=== PATIENT | female | born 1940 | race Caucasian/White ===

== ENCOUNTER 2018-06-07 02:48 | Inpatient (IN) ==
[2018-06-07 03:06] LABS: Baso # (Auto) 0.1 th/mm3 (0.0-0.2); Baso % (Auto) 0.8 % (0.0-2.0); Eos # (Auto) 0.1 th/mm3 (0.0-0.4); Eos % (Auto) 1.1 % (0.0-4.0); Hematocrit 35.9 % (35.0-46.0); Hemoglobin 11.9 gm/dL (11.6-15.3); Lymph # (Auto) 2.1 th/mm3 (1.0-4.8); Mean Corpuscular HGB Conc 33.2 % (32.0-36.0); Mean Corpuscular Hemoglobin 30.7 pg (27.0-34.0); Mean Corpuscular Volume 92.6 fL (80.0-100.0); Mean Platelet Volume 8.3 fL (7.0-11.0); Mono # (Auto) 0.5 th/mm3 (0.0-0.9); Mono % (Auto) 5.1 % (0.0-8.0); Neut # (Auto) 7.6 th/mm3 (1.8-7.7); Platelet Count 242 th/mm3 (150-450); Red Blood Count 3.87 mil/mm3 (4.00-5.30); Red Cell Distribution Width 13.3 % (11.6-17.2); White Blood Count 10.4 th/mm3 (4.0-11.0)
[2018-06-07] MEDS ORDERED: Azithromycin Inj 500 MG in Sodium Chlor 0.9% Inj 250 ML IV.SIG STA (03:07)
[2018-06-07] MEDS ORDERED: Piperacil/Tazo 4.5 GM Premix 4.5 GM/100 ML BAG IV.SIG STA (03:07)
--- NOTE | 2018-06-07 03:07 | ED ---
HPI General Chief Complaint: Shortness of Breath/Dyspnea Stated Complaint: sob Time Seen by Provider: 06/07/18 02:50 Source: patient, family and EMS Mode of arrival: EMS Limitations: no limitations History of Present Illness 77 F arrives by EMS 2/2 dyspnea. called 2/2 SOB at home at approx 230AM. O2 sats in the 70s on oxygen increased to 80s en route. Evidently patient took amoxicillin shortly before symptoms started. Amox was for recently dx'd URI. Pt non-verbal upon arrival limiting initial hx to that given by EMS. Pt is able to nod no to questions about chest pain,n/v, fever/chills, and abdominal pain. Pt nods "yes" that dyspnea is from chest not throat. Related Data Home Medications Medication Instructions Recorded Confirmed amoxicillin 875 mg PO BID 06/07/18 06/07/18 atorvastatin 20 mg PO DAILY 06/07/18 06/07/18 carvedilol 25 mg PO BID 06/07/18 06/07/18 hydrochlorothiazide 25 mg PO DAILY 06/07/18 06/07/18 losartan 100 mg PO DAILY 06/07/18 06/07/18 Allergies Allergy/AdvReac Type Severity Reaction Status Date / Time No Known Allergies Allergy Verified 06/07/18 02:50 Review of Systems ROS Unobtainable ROS Unobtainable: unobtainable due to mental condition and unobtainable due to mental status PMFSH Social History Social History Substance History: No History of Abuse Second Hand Smoke Exposure: No Smoking Status: Never smoker How Often Do You Have a Drink Containing Alcohol: Never Recent Travel in [facility] within the Last 8 Weeks: No Recent Out of Country Travel within the Last 8 Weeks: No Exam Narrative Exam Narrative: GENERAL: 77 yo F, WNWD, moderate distress SKIN: Warm. Minimal diaphoresis diffusely. HEAD: Atraumatic. Normocephalic. EYES: Pupils equal and round. No scleral icterus. No injection or drainage. ENT: No nasal bleeding or discharge. Mucous membranes pink and moist. NECK: Trachea midline. No JVD. CARDIOVASCULAR: Rate approx 90s. Sinus. RESPIRATORY: Respiratory rate approx 20 breaths per minute. Lung are slightly diminished bilaterally. GASTROINTESTINAL: Abdomen soft, non-tender, nondistended. Hepatic and splenic margins not palpable. MUSCULOSKELETAL: No obvious deformities. No clubbing. No cyanosis. No edema. NEUROLOGICAL: No facial asymmetry. Pt nods yes and no to some questions. Pt non- verbal. Pupils approx 2mm bilaterally. PSYCHIATRIC: Unable to assess Course Initial Documented Vital Signs Pulse Rate 93 H 06/07/18 02:55 Respiratory Rate 24 06/07/18 02:55 Blood Pressure 155/99 H 06/07/18 02:55 Pulse Oximetry 97 06/07/18 02:55 Last Documented Vital Signs Temperature 98.6 F 06/09/18 04:01 Pulse Rate 70 06/09/18 06:00 Respiratory Rate 15 06/09/18 04:01 Blood Pressure 125/64 06/09/18 04:01 Pulse Oximetry 91 L 06/09/18 04:01 Critical Care Time Critical Care Time: Yes Total Critical Care Time: 36 Attestation: Aggregate critical care time was 36 minutes. Time to perform other separately billable procedures was not included in the critical care time. My time did not include minutes spent treating any other patients simultaneously or on activities that did not directly contribute to the patient's treatment. The services I provided to this patient were to treat and/or prevent clinically significant deterioration that could result in: hypoxia, septic shock, anoxia I provided critical care services requiring my management, as noted below: Chart data review, documentation time, medication orders and management, vital sign assessments/reviewing monitor data, ordering and reviewing lab tests, ordering and interpreting/reviewing x-rays and diagnostic studies, care of the patient and discussion of the patient with the admitting physicians. Medical Decision Making MDM Narrative Medical decision making narrative: BIPAP started upon arrival O2 sats improved to high 90s on 70% FIO2 Initial AB.256/50/22 PO2 96.8 BE -4.4 CXR bilateral density concerning of PNA and/or flash pulmonary edema Marginal improvement with albuterol Blood cultures drawn, lactic drawn, zosyn/azithromycin started BNP 1678 Tn 1.07 EKG sinus, rate 92, TWI V2-V6, q waves II/III/aVF, concerning for ischemic disease, not STEMI pt confirms no chest pain upon reassessment at 350AM reportedly pt was unusually short of breath at a visit to [facility] a few days prior Lasix 40mg IV ordered at 330AM Heparin gtt ordered at 330AM Call to goldsmith apprentice service at 330AM Call to sales assistants and salespersons at 330AM Pt just started to follow w a sales assistants and salespersons in [place] for HTN, no hx CAD Hyperglycemia present, no hx DM Ongoing clinical improvement at 340AM d/w Dr Bangura of goldsmith apprentice service at 345AM; admission [place] [facility] [place] at 346AM pt will go to [facility] d/w Dr Buckley of cardiology at approx 400AM lactic acid 7, possible tourniquet time stat repeat lactic acid ordered pt notified of results and plan for transfer [place] [facility] [place] [facility] Medical Screen Exam Complete: Yes Emergency Medical Condition: Yes Differential Diagnosis Differential Diagnosis: pna, chf, pleural effusion, pe, pericardial effusion, anemia, renal failure, sepsis Lab Data Result diagrams: 06/09/18 03:50 06/09/18 03:50 Lab Results 06/07/18 06/07/18 06/07/18 Range/Units 02:50 02:50 02:50 CBC w Diff Auto diff final WBC 10.4 (4.0-11.0) th/mm3 RBC 3.87 L (4.00-5.30) mil/mm3 Hgb 11.9 (11.6-15.3) gm/dL Hct 35.9 (35.0-46.0) % MCV 92.6 (80.0-100.0) fL MCH 30.7 (27.0-34.0) pg MCHC 33.2 (32.0-36.0) % RDW 13.3 (11.6-17.2) % Plt Count 242 (150-450) th/mm3 MPV 8.3 (7.0-11.0) fL Prelim Diff (Auto) Neut % (Auto) 73.0 H (16.0-70.0) % Lymph % (Auto) 20.0 (9.0-44.0) % Summers % (Auto) 5.1 (0.0-8.0) % Eos % (Auto) 1.1 (0.0-4.0) % Baso % (Auto) 0.8 (0.0-2.0) % Neut # (Auto) 7.6 (1.8-7.7) th/mm3 Lymph # (Auto) 2.1 (1.0-4.8) th/mm3 Summers # (Auto) 0.5 (0.0-0.9) th/mm3 Eos # (Auto) 0.1 (0.0-0.4) th/mm3 Baso # (Auto) 0.1 (0.0-0.2) th/mm3 WBC Differential . Diff Scan Differential Comment . PT 10.6 (9.8-11.6) sec INR 1.0 Ratio APTT 25.4 (23.4-31.7) sec Puncture Site Patient Temperature O2 Saturation (90-100) % ABG pH (7.380-7.420) ABG pCO2 (38-42) mmHg ABG pO2 (61-120) mmHg ABG HCO3 (22-26) mmol/L ABG O2 Content (12.0-20.0) Vol % ABG Base Excess (-2-2) mmol/L ABG Methemoglobin (0-2) % Greg Test Hemoglobin (12.0-16.0) G/DL Carboxyhemoglobin (0-4) % O2 Delivery Device Vent Setting Inspired O2 % Critical Value Sodium 128 L (136-145) meq/L Potassium 4.3 (3.5-5.1) meq/L Chloride 92 L (98-107) meq/L Carbon Dioxide 22.7 (21.0-32.0) meq/L Anion Gap 13 (5-15) meq/L BUN 17 (7-18) mg/dL Creatinine 1.20 H (0.50-1.00) mg/dL Estimated GFR 44 L (>89) mL/min POC Glucose (68-110) mg/dl Random Glucose 281 H (74-106) mg/dL Hemoglobin A1c (4.3-6.0) % Lactic Acid (0.4-2.0) mmol/L Calcium 8.2 L (8.5-10.1) mg/dL Phosphorus (2.5-4.9) mg/dL Magnesium 2.4 (1.5-2.5) mg/dL Total Bilirubin 0.7 (0.2-1.0) mg/dL AST 29 (15-37) U/L ALT 41 (10-53) U/L Alkaline Phosphatase 49 (45-117) U/L Troponin I 1.08 H* (0.02-0.05) ng/mL B-Natriuretic Peptide (0-100) pg/mL Total Protein 7.3 (6.4-8.2) g/dL Albumin 3.5 (3.4-5.0) g/dL Triglycerides (42-150) mg/dL Cholesterol (120-200) mg/dL LDL Cholesterol, Calc (0-99) mg/dL HDL Cholesterol (40.0-60.0) mg/dL Cholesterol/HDL Ratio Ratio TSH 5.150 H (0.358-3.740) uIU/mL Free T4 (0.76-1.46) ng/dL Total T3 (60-181) ng/dL Urine Color (Yellw/Straw) Urine Clarity (Clear) Urine pH (5.0-8.5) Ur Specific Aladdin (1.002-1.035) Urine Protein (Neg-Trace) mg/dL Urine Glucose (UA) (Negative) mg/dL Urine Ketones (Negative) mg/dL Urine Occult Blood (Negative) Urine Nitrate (Negative) Urine Bilirubin (Negative) Urine Urobilinogen (Less than 2) mg/dL Ur Leukocyte Esterase (Negative) Urine RBC (0-3) /hpf Urine WBC (0-5) /hpf Ur Squamous Epith Cells (0-5) /hpf Ur Microscopic Review Nasal Screen MRSA (PCR) (Negative) Urine Opiates Screen (Neg) Ur Barbiturates Screen (Neg) Ur Amphetamines Screen (Neg) U Benzodiazepines Scrn (Neg) Urine Cocaine Screen (Neg) U Cannabinoids Screen (Neg) Serum Alcohol Less than 3 (0-5) mg/dL 06/07/18 06/07/18 06/07/18 Range/Units 02:50 03:05 03:05 CBC w Diff WBC (4.0-11.0) th/mm3 RBC (4.00-5.30) mil/mm3 Hgb (11.6-15.3) gm/dL Hct (35.0-46.0) % MCV (80.0-100.0) fL MCH (27.0-34.0) pg MCHC (32.0-36.0) % RDW (11.6-17.2) % Plt Count (150-450) th/mm3 MPV (7.0-11.0) fL Prelim Diff (Auto) Neut % (Auto) (16.0-70.0) % Lymph % (Auto) (9.0-44.0) % Summers % (Auto) (0.0-8.0) % Eos % (Auto) (0.0-4.0) % Baso % (Auto) (0.0-2.0) % Neut # (Auto) (1.8-7.7) th/mm3 Lymph # (Auto) (1.0-4.8) th/mm3 Summers # (Auto) (0.0-0.9) th/mm3 Eos # (Auto) (0.0-0.4) th/mm3 Baso # (Auto) (0.0-0.2) th/mm3 WBC Differential Diff Scan Differential Comment PT (9.8-11.6) sec INR Ratio APTT (23.4-31.7) sec Puncture Site Right radial Patient Temperature 98.6 O2 Saturation 95 (90-100) % ABG pH 7.26 L* (7.380-7.420) ABG pCO2 50 H (38-42) mmHg ABG pO2 97 (61-120) mmHg ABG HCO3 22 (22-26) mmol/L ABG O2 Content 15.7 (12.0-20.0) Vol % ABG Base Excess -4.4 L (-2-2) mmol/L ABG Methemoglobin 1.2 (0-2) % Greg Test Present Hemoglobin 11.7 L (12.0-16.0) G/DL Carboxyhemoglobin 0.9 (0-4) % O2 Delivery Device Bipap Vent Setting Ipap 15/ epap 5 Inspired O2 70 % Critical Value Yes Sodium (136-145) meq/L Potassium (3.5-5.1) meq/L Chloride (98-107) meq/L Carbon Dioxide (21.0-32.0) meq/L Anion Gap (5-15) meq/L BUN (7-18) mg/dL Creatinine (0.50-1.00) mg/dL Estimated GFR (>89) mL/min POC Glucose (68-110) mg/dl Random Glucose (74-106) mg/dL Hemoglobin A1c (4.3-6.0) % Lactic Acid 7.1 H* (0.4-2.0) mmol/L Calcium (8.5-10.1) mg/dL Phosphorus (2.5-4.9) mg/dL Magnesium (1.5-2.5) mg/dL Total Bilirubin (0.2-1.0) mg/dL AST (15-37) U/L ALT (10-53) U/L Alkaline Phosphatase (45-117) U/L Troponin I (0.02-0.05) ng/mL B-Natriuretic Peptide 1679 H (0-100) pg/mL Total Protein (6.4-8.2) g/dL Albumin (3.4-5.0) g/dL Triglycerides (42-150) mg/dL Cholesterol (120-200) mg/dL LDL Cholesterol, Calc (0-99) mg/dL HDL Cholesterol (40.0-60.0) mg/dL Cholesterol/HDL Ratio Ratio TSH (0.358-3.740) uIU/mL Free T4 (0.76-1.46) ng/dL Total T3 (60-181) ng/dL Urine Color (Yellw/Straw) Urine Clarity (Clear) Urine pH (5.0-8.5) Ur Specific Aladdin (1.002-1.035) Urine Protein (Neg-Trace) mg/dL Urine Glucose (UA) (Negative) mg/dL Urine Ketones (Negative) mg/dL Urine Occult Blood (Negative) Urine Nitrate (Negative) Urine Bilirubin (Negative) Urine Urobilinogen (Less than 2) mg/dL Ur Leukocyte Esterase (Negative) Urine RBC (0-3) /hpf Urine WBC (0-5) /hpf Ur Squamous Epith Cells (0-5) /hpf Ur Microscopic Review Nasal Screen MRSA (PCR) (Negative) Urine Opiates Screen (Neg) Ur Barbiturates Screen (Neg) Ur Amphetamines Screen (Neg) U Benzodiazepines Scrn (Neg) Urine Cocaine Screen (Neg) U Cannabinoids Screen (Neg) Serum Alcohol (0-5) mg/dL 06/07/18 06/07/18 06/07/18 Range/Units 04:51 04:54 04:54 CBC w Diff WBC (4.0-11.0) th/mm3 RBC (4.00-5.30) mil/mm3 Hgb (11.6-15.3) gm/dL Hct (35.0-46.0) % MCV (80.0-100.0) fL MCH (27.0-34.0) pg MCHC (32.0-36.0) % RDW (11.6-17.2) % Plt Count (150-450) th/mm3 MPV (7.0-11.0) fL Prelim Diff (Auto) Neut % (Auto) (16.0-70.0) % Lymph % (Auto) (9.0-44.0) % Summers % (Auto) (0.0-8.0) % Eos % (Auto) (0.0-4.0) % Baso % (Auto) (0.0-2.0) % Neut # (Auto) (1.8-7.7) th/mm3 Lymph # (Auto) (1.0-4.8) th/mm3 Summers # (Auto) (0.0-0.9) th/mm3 Eos # (Auto) (0.0-0.4) th/mm3 Baso # (Auto) (0.0-0.2) th/mm3 WBC Differential Diff Scan Differential Comment PT (9.8-11.6) sec INR Ratio APTT (23.4-31.7) sec Puncture Site Patient Temperature O2 Saturation (90-100) % ABG pH (7.380-7.420) ABG pCO2 (38-42) mmHg ABG pO2 (61-120) mmHg ABG HCO3 (22-26) mmol/L ABG O2 Content (12.0-20.0) Vol % ABG Base Excess (-2-2) mmol/L ABG Methemoglobin (0-2) % Greg Test Hemoglobin (12.0-16.0) G/DL Carboxyhemoglobin (0-4) % O2 Delivery Device Vent Setting Inspired O2 % Critical Value Sodium (136-145) meq/L Potassium (3.5-5.1) meq/L Chloride (98-107) meq/L Carbon Dioxide (21.0-32.0) meq/L Anion Gap (5-15) meq/L BUN (7-18) mg/dL Creatinine (0.50-1.00) mg/dL Estimated GFR (>89) mL/min POC Glucose (68-110) mg/dl Random Glucose (74-106) mg/dL Hemoglobin A1c (4.3-6.0) % Lactic Acid 2.3 H (0.4-2.0) mmol/L Calcium (8.5-10.1) mg/dL Phosphorus (2.5-4.9) mg/dL Magnesium (1.5-2.5) mg/dL Total Bilirubin (0.2-1.0) mg/dL AST (15-37) U/L ALT (10-53) U/L Alkaline Phosphatase (45-117) U/L Troponin I (0.02-0.05) ng/mL B-Natriuretic Peptide (0-100) pg/mL Total Protein (6.4-8.2) g/dL Albumin (3.4-5.0) g/dL Triglycerides (42-150) mg/dL Cholesterol (120-200) mg/dL LDL Cholesterol, Calc (0-99) mg/dL HDL Cholesterol (40.0-60.0) mg/dL Cholesterol/HDL Ratio Ratio TSH (0.358-3.740) uIU/mL Free T4 (0.76-1.46) ng/dL Total T3 (60-181) ng/dL Urine Color Straw (Yellw/Straw) Urine Clarity Clear (Clear) Urine pH 6.0 (5.0-8.5) Ur Specific Aladdin 1.015 (1.002-1.035) Urine Protein Negative (Neg-Trace) mg/dL Urine Glucose (UA) 100 H (Negative) mg/dL Urine Ketones Negative (Negative) mg/dL Urine Occult Blood Negative (Negative) Urine Nitrate Negative (Negative) Urine Bilirubin Negative (Negative) Urine Urobilinogen 0.2 (Less than 2) mg/dL Ur Leukocyte Esterase Negative (Negative) Urine RBC 0-3 (0-3) /hpf Urine WBC 0-5 (0-5) /hpf Ur Squamous Epith Cells 0-5 (0-5) /hpf Ur Microscopic Review Microscopic reviewed Nasal Screen MRSA (PCR) (Negative) Urine Opiates Screen Neg (Neg) Ur Barbiturates Screen Neg (Neg) Ur Amphetamines Screen Neg (Neg) U Benzodiazepines Scrn Neg (Neg) Urine Cocaine Screen Neg (Neg) U Cannabinoids Screen Neg (Neg) Serum Alcohol (0-5) mg/dL 06/07/18 06/07/18 06/07/18 Range/Units 06:10 06:23 08:34 CBC w Diff WBC (4.0-11.0) th/mm3 RBC (4.00-5.30) mil/mm3 Hgb (11.6-15.3) gm/dL Hct (35.0-46.0) % MCV (80.0-100.0) fL MCH (27.0-34.0) pg MCHC (32.0-36.0) % RDW (11.6-17.2) % Plt Count (150-450) th/mm3 MPV (7.0-11.0) fL Prelim Diff (Auto) Neut % (Auto) (16.0-70.0) % Lymph % (Auto) (9.0-44.0) % Summers % (Auto) (0.0-8.0) % Eos % (Auto) (0.0-4.0) % Baso % (Auto) (0.0-2.0) % Neut # (Auto) (1.8-7.7) th/mm3 Lymph # (Auto) (1.0-4.8) th/mm3 Summers # (Auto) (0.0-0.9) th/mm3 Eos # (Auto) (0.0-0.4) th/mm3 Baso # (Auto) (0.0-0.2) th/mm3 WBC Differential Diff Scan Differential Comment PT (9.8-11.6) sec INR Ratio APTT (23.4-31.7) sec Puncture Site Patient Temperature O2 Saturation (90-100) % ABG pH (7.380-7.420) ABG pCO2 (38-42) mmHg ABG pO2 (61-120) mmHg ABG HCO3 (22-26) mmol/L ABG O2 Content (12.0-20.0) Vol % ABG Base Excess (-2-2) mmol/L ABG Methemoglobin (0-2) % Greg Test Hemoglobin (12.0-16.0) G/DL Carboxyhemoglobin (0-4) % O2 Delivery Device Vent Setting Inspired O2 % Critical Value Sodium (136-145) meq/L Potassium (3.5-5.1) meq/L Chloride (98-107) meq/L Carbon Dioxide (21.0-32.0) meq/L Anion Gap (5-15) meq/L BUN (7-18) mg/dL Creatinine (0.50-1.00) mg/dL Estimated GFR (>89) mL/min POC Glucose 150 H 125 H (68-110) mg/dl Random Glucose (74-106) mg/dL Hemoglobin A1c (4.3-6.0) % Lactic Acid (0.4-2.0) mmol/L Calcium (8.5-10.1) mg/dL Phosphorus (2.5-4.9) mg/dL Magnesium (1.5-2.5) mg/dL Total Bilirubin (0.2-1.0) mg/dL AST (15-37) U/L ALT (10-53) U/L Alkaline Phosphatase (45-117) U/L Troponin I (0.02-0.05) ng/mL B-Natriuretic Peptide (0-100) pg/mL Total Protein (6.4-8.2) g/dL Albumin (3.4-5.0) g/dL Triglycerides (42-150) mg/dL Cholesterol (120-200) mg/dL LDL Cholesterol, Calc (0-99) mg/dL HDL Cholesterol (40.0-60.0) mg/dL Cholesterol/HDL Ratio Ratio TSH (0.358-3.740) uIU/mL Free T4 (0.76-1.46) ng/dL Total T3 (60-181) ng/dL Urine Color (Yellw/Straw) Urine Clarity (Clear) Urine pH (5.0-8.5) Ur Specific Aladdin (1.002-1.035) Urine Protein (Neg-Trace) mg/dL Urine Glucose (UA) (Negative) mg/dL Urine Ketones (Negative) mg/dL Urine Occult Blood (Negative) Urine Nitrate (Negative) Urine Bilirubin (Negative) Urine Urobilinogen (Less than 2) mg/dL Ur Leukocyte Esterase (Negative) Urine RBC (0-3) /hpf Urine WBC (0-5) /hpf Ur Squamous Epith Cells (0-5) /hpf Ur Microscopic Review Nasal Screen MRSA (PCR) Not detected (Negative) Urine Opiates Screen (Neg) Ur Barbiturates Screen (Neg) Ur Amphetamines Screen (Neg) U Benzodiazepines Scrn (Neg) Urine Cocaine Screen (Neg) U Cannabinoids Screen (Neg) Serum Alcohol (0-5) mg/dL 06/07/18 06/07/18 06/07/18 Range/Units 13:52 20:07 21:49 CBC w Diff WBC (4.0-11.0) th/mm3 RBC (4.00-5.30) mil/mm3 Hgb (11.6-15.3) gm/dL Hct (35.0-46.0) % MCV (80.0-100.0) fL MCH (27.0-34.0) pg MCHC (32.0-36.0) % RDW (11.6-17.2) % Plt Count (150-450) th/mm3 MPV (7.0-11.0) fL Prelim Diff (Auto) Neut % (Auto) (16.0-70.0) % Lymph % (Auto) (9.0-44.0) % Summers % (Auto) (0.0-8.0) % Eos % (Auto) (0.0-4.0) % Baso % (Auto) (0.0-2.0) % Neut # (Auto) (1.8-7.7) th/mm3 Lymph # (Auto) (1.0-4.8) th/mm3 Summers # (Auto) (0.0-0.9) th/mm3 Eos # (Auto) (0.0-0.4) th/mm3 Baso # (Auto) (0.0-0.2) th/mm3 WBC Differential Diff Scan Differential Comment PT (9.8-11.6) sec INR Ratio APTT (23.4-31.7) sec Puncture Site Patient Temperature O2 Saturation (90-100) % ABG pH (7.380-7.420) ABG pCO2 (38-42) mmHg ABG pO2 (61-120) mmHg ABG HCO3 (22-26) mmol/L ABG O2 Content (12.0-20.0) Vol % ABG Base Excess (-2-2) mmol/L ABG Methemoglobin (0-2) % Greg Test Hemoglobin (12.0-16.0) G/DL Carboxyhemoglobin (0-4) % O2 Delivery Device Vent Setting Inspired O2 % Critical Value Sodium (136-145) meq/L Potassium (3.5-5.1) meq/L Chloride (98-107) meq/L Carbon Dioxide (21.0-32.0) meq/L Anion Gap (5-15) meq/L BUN (7-18) mg/dL Creatinine (0.50-1.00) mg/dL Estimated GFR (>89) mL/min POC Glucose 131 H 117 H (68-110) mg/dl Random Glucose (74-106) mg/dL Hemoglobin A1c (4.3-6.0) % Lactic Acid (0.4-2.0) mmol/L Calcium (8.5-10.1) mg/dL Phosphorus (2.5-4.9) mg/dL Magnesium (1.5-2.5) mg/dL Total Bilirubin (0.2-1.0) mg/dL AST (15-37) U/L ALT (10-53) U/L Alkaline Phosphatase (45-117) U/L Troponin I 24.80 H* D (0.02-0.05) ng/mL B-Natriuretic Peptide (0-100) pg/mL Total Protein (6.4-8.2) g/dL Albumin (3.4-5.0) g/dL Triglycerides (42-150) mg/dL Cholesterol (120-200) mg/dL LDL Cholesterol, Calc (0-99) mg/dL HDL Cholesterol (40.0-60.0) mg/dL Cholesterol/HDL Ratio Ratio TSH (0.358-3.740) uIU/mL Free T4 (0.76-1.46) ng/dL Total T3 (60-181) ng/dL Urine Color (Yellw/Straw) Urine Clarity (Clear) Urine pH (5.0-8.5) Ur Specific Aladdin (1.002-1.035) Urine Protein (Neg-Trace) mg/dL Urine Glucose (UA) (Negative) mg/dL Urine Ketones (Negative) mg/dL Urine Occult Blood (Negative) Urine Nitrate (Negative) Urine Bilirubin (Negative) Urine Urobilinogen (Less than 2) mg/dL Ur Leukocyte Esterase (Negative) Urine RBC (0-3) /hpf Urine WBC (0-5) /hpf Ur Squamous Epith Cells (0-5) /hpf Ur Microscopic Review Nasal Screen MRSA (PCR) (Negative) Urine Opiates Screen (Neg) Ur Barbiturates Screen (Neg) Ur Amphetamines Screen (Neg) U Benzodiazepines Scrn (Neg) Urine Cocaine Screen (Neg) U Cannabinoids Screen (Neg) Serum Alcohol (0-5) mg/dL 06/07/18 06/08/18 06/08/18 Range/Units 23:47 03:00 03:00 CBC w Diff WBC 8.1 (4.0-11.0) th/mm3 RBC 3.39 L (4.00-5.30) mil/mm3 Hgb 11.0 L (11.6-15.3) gm/dL Hct 30.6 L (35.0-46.0) % MCV 90.1 (80.0-100.0) fL MCH 32.5 (27.0-34.0) pg MCHC 36.0 (32.0-36.0) % RDW 13.8 (11.6-17.2) % Plt Count 177 (150-450) th/mm3 MPV 8.1 (7.0-11.0) fL Prelim Diff (Auto) Slide review pending Neut % (Auto) 79.2 H (16.0-70.0) % Lymph % (Auto) 12.7 (9.0-44.0) % Summers % (Auto) 7.1 (0.0-8.0) % Eos % (Auto) 0.5 (0.0-4.0) % Baso % (Auto) 0.5 (0.0-2.0) % Neut # (Auto) 6.4 (1.8-7.7) th/mm3 Lymph # (Auto) 1.0 (1.0-4.8) th/mm3 Summers # (Auto) 0.6 (0.0-0.9) th/mm3 Eos # (Auto) 0.0 (0.0-0.4) th/mm3 Baso # (Auto) 0.0 (0.0-0.2) th/mm3 WBC Differential . Diff Scan Auto diff confirmed Differential Comment . PT (9.8-11.6) sec INR Ratio APTT (23.4-31.7) sec Puncture Site Patient Temperature O2 Saturation (90-100) % ABG pH (7.380-7.420) ABG pCO2 (38-42) mmHg ABG pO2 (61-120) mmHg ABG HCO3 (22-26) mmol/L ABG O2 Content (12.0-20.0) Vol % ABG Base Excess (-2-2) mmol/L ABG Methemoglobin (0-2) % Greg Test Hemoglobin (12.0-16.0) G/DL Carboxyhemoglobin (0-4) % O2 Delivery Device Vent Setting Inspired O2 % Critical Value Sodium 131 L (136-145) meq/L Potassium 3.7 (3.5-5.1) meq/L Chloride 95 L (98-107) meq/L Carbon Dioxide 29.5 (21.0-32.0) meq/L Anion Gap 7 (5-15) meq/L BUN 18 (7-18) mg/dL Creatinine 0.96 (0.50-1.00) mg/dL Estimated GFR 57 L (>89) mL/min POC Glucose 111 H (68-110) mg/dl Random Glucose 119 H D (74-106) mg/dL Hemoglobin A1c (4.3-6.0) % Lactic Acid (0.4-2.0) mmol/L Calcium 7.9 L (8.5-10.1) mg/dL Phosphorus 3.4 (2.5-4.9) mg/dL Magnesium 1.9 (1.5-2.5) mg/dL Total Bilirubin 1.1 H (0.2-1.0) mg/dL AST 99 H (15-37) U/L ALT 43 (10-53) U/L Alkaline Phosphatase 40 L (45-117) U/L Troponin I 17.90 H* D (0.02-0.05) ng/mL B-Natriuretic Peptide (0-100) pg/mL Total Protein 7.0 (6.4-8.2) g/dL Albumin 3.4 (3.4-5.0) g/dL Triglycerides (42-150) mg/dL Cholesterol (120-200) mg/dL LDL Cholesterol, Calc (0-99) mg/dL HDL Cholesterol (40.0-60.0) mg/dL Cholesterol/HDL Ratio Ratio TSH (0.358-3.740) uIU/mL Free T4 (0.76-1.46) ng/dL Total T3 (60-181) ng/dL Urine Color (Yellw/Straw) Urine Clarity (Clear) Urine pH (5.0-8.5) Ur Specific Aladdin (1.002-1.035) Urine Protein (Neg-Trace) mg/dL Urine Glucose (UA) (Negative) mg/dL Urine Ketones (Negative) mg/dL Urine Occult Blood (Negative) Urine Nitrate (Negative) Urine Bilirubin (Negative) Urine Urobilinogen (Less than 2) mg/dL Ur Leukocyte Esterase (Negative) Urine RBC (0-3) /hpf Urine WBC (0-5) /hpf Ur Squamous Epith Cells (0-5) /hpf Ur Microscopic Review Nasal Screen MRSA (PCR) (Negative) Urine Opiates Screen (Neg) Ur Barbiturates Screen (Neg) Ur Amphetamines Screen (Neg) U Benzodiazepines Scrn (Neg) Urine Cocaine Screen (Neg) U Cannabinoids Screen (Neg) Serum Alcohol (0-5) mg/dL 06/08/18 06/08/18 06/08/18 Range/Units 03:23 15:21 15:21 CBC w Diff WBC (4.0-11.0) th/mm3 RBC (4.00-5.30) mil/mm3 Hgb (11.6-15.3) gm/dL Hct (35.0-46.0) % MCV (80.0-100.0) fL MCH (27.0-34.0) pg MCHC (32.0-36.0) % RDW (11.6-17.2) % Plt Count (150-450) th/mm3 MPV (7.0-11.0) fL Prelim Diff (Auto) Neut % (Auto) (16.0-70.0) % Lymph % (Auto) (9.0-44.0) % Summers % (Auto) (0.0-8.0) % Eos % (Auto) (0.0-4.0) % Baso % (Auto) (0.0-2.0) % Neut # (Auto) (1.8-7.7) th/mm3 Lymph # (Auto) (1.0-4.8) th/mm3 Summers # (Auto) (0.0-0.9) th/mm3 Eos # (Auto) (0.0-0.4) th/mm3 Baso # (Auto) (0.0-0.2) th/mm3 WBC Differential Diff Scan Differential Comment PT (9.8-11.6) sec INR Ratio APTT (23.4-31.7) sec Puncture Site Patient Temperature O2 Saturation (90-100) % ABG pH (7.380-7.420) ABG pCO2 (38-42) mmHg ABG pO2 (61-120) mmHg ABG HCO3 (22-26) mmol/L ABG O2 Content (12.0-20.0) Vol % ABG Base Excess (-2-2) mmol/L ABG Methemoglobin (0-2) % Greg Test Hemoglobin (12.0-16.0) G/DL Carboxyhemoglobin (0-4) % O2 Delivery Device Vent Setting Inspired O2 % Critical Value Sodium (136-145) meq/L Potassium (3.5-5.1) meq/L Chloride (98-107) meq/L Carbon Dioxide (21.0-32.0) meq/L Anion Gap (5-15) meq/L BUN (7-18) mg/dL Creatinine (0.50-1.00) mg/dL Estimated GFR (>89) mL/min POC Glucose 119 H (68-110) mg/dl Random Glucose (74-106) mg/dL Hemoglobin A1c (4.3-6.0) % Lactic Acid (0.4-2.0) mmol/L Calcium (8.5-10.1) mg/dL Phosphorus (2.5-4.9) mg/dL Magnesium (1.5-2.5) mg/dL Total Bilirubin (0.2-1.0) mg/dL AST (15-37) U/L ALT (10-53) U/L Alkaline Phosphatase (45-117) U/L Troponin I (0.02-0.05) ng/mL B-Natriuretic Peptide (0-100) pg/mL Total Protein (6.4-8.2) g/dL Albumin (3.4-5.0) g/dL Triglycerides 72 (42-150) mg/dL Cholesterol 136 (120-200) mg/dL LDL Cholesterol, Calc 59 (0-99) mg/dL HDL Cholesterol 62.6 H (40.0-60.0) mg/dL Cholesterol/HDL Ratio 2.17 Ratio TSH (0.358-3.740) uIU/mL Free T4 1.34 (0.76-1.46) ng/dL Total T3 85 (60-181) ng/dL Urine Color (Yellw/Straw) Urine Clarity (Clear) Urine pH (5.0-8.5) Ur Specific Aladdin (1.002-1.035) Urine Protein (Neg-Trace) mg/dL Urine Glucose (UA) (Negative) mg/dL Urine Ketones (Negative) mg/dL Urine Occult Blood (Negative) Urine Nitrate (Negative) Urine Bilirubin (Negative) Urine Urobilinogen (Less than 2) mg/dL Ur Leukocyte Esterase (Negative) Urine RBC (0-3) /hpf Urine WBC (0-5) /hpf Ur Squamous Epith Cells (0-5) /hpf Ur Microscopic Review Nasal Screen MRSA (PCR) (Negative) Urine Opiates Screen (Neg) Ur Barbiturates Screen (Neg) Ur Amphetamines Screen (Neg) U Benzodiazepines Scrn (Neg) Urine Cocaine Screen (Neg) U Cannabinoids Screen (Neg) Serum Alcohol (0-5) mg/dL 06/08/18 06/09/18 06/09/18 Range/Units 15:21 03:50 03:50 CBC w Diff WBC 5.7 (4.0-11.0) th/mm3 RBC 3.49 L (4.00-5.30) mil/mm3 Hgb 11.0 L (11.6-15.3) gm/dL Hct 32.4 L (35.0-46.0) % MCV 92.9 (80.0-100.0) fL MCH 31.5 (27.0-34.0) pg MCHC 33.8 (32.0-36.0) % RDW 13.6 (11.6-17.2) % Plt Count 204 (150-450) th/mm3 MPV 8.3 (7.0-11.0) fL Prelim Diff (Auto) Neut % (Auto) (16.0-70.0) % Lymph % (Auto) (9.0-44.0) % Summers % (Auto) (0.0-8.0) % Eos % (Auto) (0.0-4.0) % Baso % (Auto) (0.0-2.0) % Neut # (Auto) (1.8-7.7) th/mm3 Lymph # (Auto) (1.0-4.8) th/mm3 Summers # (Auto) (0.0-0.9) th/mm3 Eos # (Auto) (0.0-0.4) th/mm3 Baso # (Auto) (0.0-0.2) th/mm3 WBC Differential Diff Scan Differential Comment PT (9.8-11.6) sec INR Ratio APTT (23.4-31.7) sec Puncture Site Patient Temperature O2 Saturation (90-100) % ABG pH (7.380-7.420) ABG pCO2 (38-42) mmHg ABG pO2 (61-120) mmHg ABG HCO3 (22-26) mmol/L ABG O2 Content (12.0-20.0) Vol % ABG Base Excess (-2-2) mmol/L ABG Methemoglobin (0-2) % Greg Test Hemoglobin (12.0-16.0) G/DL Carboxyhemoglobin (0-4) % O2 Delivery Device Vent Setting Inspired O2 % Critical Value Sodium 133 L (136-145) meq/L Potassium 3.5 (3.5-5.1) meq/L Chloride 96 L (98-107) meq/L Carbon Dioxide 27.0 (21.0-32.0) meq/L Anion Gap 10 (5-15) meq/L BUN 20 H (7-18) mg/dL Creatinine 0.93 (0.50-1.00) mg/dL Estimated GFR 59 L (>89) mL/min POC Glucose (68-110) mg/dl Random Glucose 113 H (74-106) mg/dL Hemoglobin A1c 5.8 (4.3-6.0) % Lactic Acid (0.4-2.0) mmol/L Calcium 8.4 L (8.5-10.1) mg/dL Phosphorus 2.9 (2.5-4.9) mg/dL Magnesium 2.5 D (1.5-2.5) mg/dL Total Bilirubin (0.2-1.0) mg/dL AST (15-37) U/L ALT (10-53) U/L Alkaline Phosphatase (45-117) U/L Troponin I (0.02-0.05) ng/mL B-Natriuretic Peptide (0-100) pg/mL Total Protein (6.4-8.2) g/dL Albumin (3.4-5.0) g/dL Triglycerides (42-150) mg/dL Cholesterol (120-200) mg/dL LDL Cholesterol, Calc (0-99) mg/dL HDL Cholesterol (40.0-60.0) mg/dL Cholesterol/HDL Ratio Ratio TSH (0.358-3.740) uIU/mL Free T4 (0.76-1.46) ng/dL Total T3 (60-181) ng/dL Urine Color (Yellw/Straw) Urine Clarity (Clear) Urine pH (5.0-8.5) Ur Specific [place] (1.002-1.035) Urine Protein (Neg-Trace) mg/dL Urine Glucose (UA) (Negative) mg/dL Urine Ketones (Negative) mg/dL Urine Occult Blood (Negative) Urine Nitrate (Negative) Urine Bilirubin (Negative) Urine Urobilinogen (Less than 2) mg/dL Ur Leukocyte Esterase (Negative) Urine RBC (0-3) /hpf Urine WBC (0-5) /hpf Ur Squamous Epith Cells (0-5) /hpf Ur Microscopic Review Nasal Screen MRSA (PCR) (Negative) Urine Opiates Screen (Neg) Ur Barbiturates Screen (Neg) Ur Amphetamines Screen (Neg) U Benzodiazepines Scrn (Neg) Urine Cocaine Screen (Neg) U Cannabinoids Screen (Neg) Serum Alcohol (0-5) mg/dL Imaging Data Radiologist's impression: Venous Doppler Study 06/07/18 00:00 CONCLUSION: The study is negative for bilateral lower extremity deep venous thrombosis. Chest X-Ray 06/07/18 02:51 CONCLUSION: Mild edema pattern versus interstitial infiltrate. Trace pleural fluid. Heart size within normal limits. Chest X-Ray 06/08/18 03:55 CONCLUSION: Slight improvement in pulmonary edema pattern. Persistent basilar airspace disease with small effusions. Chest X-Ray 06/09/18 06:00 CONCLUSION: Basilar airspace disease improved from June 08. No significant effusion. Discharge Plan Discharge Disposition Patient Disposition: 30 Still Patient Physicians Team ED Provider: Freddy Buckley Primary Care Provider: Primary Care Suzette,Renetta Attending Provider: Janell Bangura Other Providers: Michael Buckley Cary Status ED Status: Left Department Discharge Information Discharge Date/Time: 06/07/18 06:49
[2018-06-07 03:13] LABS: Chloride 92 meq/L (98-107); Potassium 4.3 meq/L (3.5-5.1); Sodium 128 meq/L (136-145)
[2018-06-07 03:17] LABS: Albumin 3.5 g/dL (3.4-5.0); Anion Gap 13 meq/L (5-15); Calcium 8.2 mg/dL (8.5-10.1); Carbon Dioxide 22.7 meq/L (21.0-32.0); Glucose,Random 281 mg/dL (74-106); Magnesium 2.4 mg/dL (1.5-2.5)
[2018-06-07 03:18] LABS: Activated Partial Thrombo Time 25.4 sec (23.4-31.7); Blood Urea Nitrogen 17 mg/dL (7-18); Prothrombin Time 10.6 sec (9.8-11.6)
[2018-06-07 03:19] LABS: ABG Base Excess -4.4 mmol/L (-2-2); ABG PCO2 50 mmHg (38-42); ABG PO2 97 mmHg (61-120)
[2018-06-07 03:20] LABS: Alanine Aminotransferase 41 U/L (10-53); Aspartate Aminotransferase 29 U/L (15-37)
[2018-06-07 03:21] LABS: Glomerular Filtration Rate 44 mL/min (>89)
[2018-06-07 03:22] LABS: Total Protein 7.3 g/dL (6.4-8.2)
[2018-06-07 03:23] LABS: Alkaline Phosphatase 49 U/L (45-117)
[2018-06-07 03:31] LABS: Troponin I 1.08 ng/mL (0.02-0.05)
[2018-06-07] MEDS ORDERED: Heparin 10,000 UNITS/10 ML Vial (for IV use) IV.PUSH STA (03:34)
[2018-06-07] MEDS ORDERED: Heparin Drip 25,000 UNIT/250 ML BAG IV.CONT PRN (03:34)
[2018-06-07] MEDS ORDERED: Dextrose 50% in Water 50 ML Vial IV.PUSH PRN (03:49)
--- NOTE | 2018-06-07 03:49 | XR ---
EXAM DATE: 06/07/2018 3:06 AM EST AGE/SEX: 77 years / Female INDICATIONS: Shortness of breath. CLINICAL DATA: This is the patient's initial encounter. Patient reports that signs and symptoms have been present for 1 day and indicates a pain score of Nonresponsive. MEDICAL/SURGICAL HISTORY: Non-responsive. Non-responsive. COMPARISON: No prior exams available for comparison. FINDINGS: There is a diffuse mild edema pattern. Trace pleural fluid. Heart size within normal limits. CONCLUSION: Mild edema pattern versus interstitial infiltrate. Trace pleural fluid. Heart size within normal limi ts. Electronically signed by: Jordan Londono MD 06/07/2018 3:48 AM EST
[2018-06-07] MEDS ORDERED: Morphine Sulfate Inj 2 MG/ML Vial IV.PUSH PRN (03:53)
[2018-06-07] MEDS ORDERED: Acetaminophen 325 MG Tablet PO PRN (03:53)
[2018-06-07] MEDS ORDERED: Bisacodyl 10 MG Supp RECTAL PRN (03:53)
[2018-06-07] MEDS ORDERED: Chlorhexidine Gluconate 2% 1 Pack (2 Cloths) TOPICAL PRN (04:00)
[2018-06-07 05:02] LABS: Bilirubin,Urine Negative (Negative); Clarity,Urine Clear (Clear); Glucose,Urine (UA) 100 mg/dL (Negative); Leukocyte Esterase,Urine Negative (Negative); Nitrite,Urine Negative (Negative); Specific Gravity,Urine 1.015 (1.002-1.035); Urobilinogen,Urine 0.2 mg/dL (Less than 2)
[2018-06-07 05:09] LABS: Color,Urine Straw (Yellw/Straw); RBC,Urine 0-3 /hpf (0-3); Squamous Epithelial Cell,Urine 0-5 /hpf (0-5); WBC,Urine 0-5 /hpf (0-5)
[2018-06-07 05:11] LABS: Amphetamine Screen,Urine Neg (Neg); Barbiturate Screen,Urine Neg (Neg); Cannabinoid Screen,Urine Neg (Neg); Cocaine Screen,Urine Neg (Neg)
[2018-06-07 05:17] LABS: Opiate Screen,Urine Neg (Neg)
[2018-06-07] MEDS: Chlorhexidine Gluconate 2% 1 Pack (2 Cloths) TOPICAL SCH (06:25)
[2018-06-07] MEDS: Insulin NovoLOG Aspart Correctional Sugar Inj SQ SCH ×4 (06:25→21:45)
--- NOTE | 2018-06-07 06:28 | P.HPCC ---
History of Present Illness Service: Critical care medicine Primary Care Physician: No Primary Care Physician Chief Complaint: Shortness of breath History of Present Illness: This is a 77-year-old female. Date of admission 06/07/2018. Past medical history includes hypertension, hyperlipidemia and CLL diagnosed in 2005. Patient presents to [facility] originally from [place] with a one-week history of progressive shortness of breath. Recently, patient was started on amoxicillin for suspected upper year respiratory tract infection. This morning approximately 2 AM, EMS was called due to acute tachypnea. When EMS arrived saturations were in the 70s. She was unable to speak complete status post able to nod her head to questions per report. Denies chest pain. Denies abdominal pain Of note patient recently traveled from [place] via car approximately week ago. In the ED, patient was noted to have a chest x-ray revealing likely flash pulmonary edema. Patient received 40 mg IV furosemide. EKG revealed Q waves in inferior leads. BNP was elevated. Creatinine was slightly elevated 1.[address] Zuleta was called and will be consulted. Patient was placed on BiPAP [facility]. At the present time, patient is currently less tachypneic. Requesting for BiPAP removed. Again denies chest pain, abdominal pain, edema in the lower extremities. Hemodynamically stable. - Diagnosis (1) Elevated troponin (2) Acute respiratory failure (3) Essential hypertension (4) Hyperlipidemia (5) Elevated brain natriuretic peptide (BNP) level (6) Elevated TSH (7) Acute kidney injury (8) Hyponatremia (9) Hyperglycemia (10) History of chronic lymphocytic leukemia Inpatient Certification: I certify that the inpatient services were ordered in accordance with Medicare regulations governing the order. This includes certification that hospital inpatient services are reasonable and necessary and in the case of services not specified as inpatient-only under 42 CFR 419.22(n), that they are appropriately provided as inpatient services in accordance to with the 2-midnight benchmark under 43 CFR 412.3(e) Estimated Total Length of Stay (Days): 5 Plans for Post Hospital Care: Not yet determined Review of Systems Constitutional: Denies anorexia, Denies body ache(s), Denies chills, Denies daytime sleepiness Eyes: Denies blind spots, Denies blurry vision Ears, Nose, Mouth, and Throat: Reports bad breath, Denies abnormal hearing, Denies bleeding gums Cardiovascular: Denies chest pain Respiratory: Reports chest congestion, Reports shortness of breath with activity , Denies cough Gastrointestinal: Denies abdominal pain Genitourinary: Denies heavy periods Musculoskeletal: Denies abnormal walking, Denies back pain Skin/Breast: Denies bleeding lesions Neurologic: Denies abnormal hearing, Denies abnormal movements Psychiatric: Reports anxiety, Denies abnormal sleep pattern Endocrine: Denies cold intolerance, Denies excessive sweating Hematologic/Lymphatic: Denies easy bleeding Allergic/Immunologic: Denies GI upset with certain foods PMFSH - History History Provided By: Patient - Medical History Medical History: Medical History (Last Updated 06/07/18 @ 06:57 by Armen Cardenas MD) CLL (chronic lymphocytic leukemia) Essential hypertension Hyperlipidemia - Surgical History Surgical History: Surgical History (Last Updated 06/07/18 @ 06:57 by Armen Cardenas MD) History of lymph node biopsy Left fibular fracture Status post fracture of left tibia - Family History Family History: Family History (Last Updated 06/07/18 @ 06:58 by Armen Cardenas MD) Sister Family history of coronary artery disease Mother Family history of hypertension - Social History I have reviewed the patient's Social History: Yes - Tobacco History Second Hand Smoke Exposure: No Smoking Status: Never smoker - Alcohol History How Often Do You Have a Drink Containing Alcohol: Never - Substance Use History Substance History: No History of Abuse - Travel History Recent Travel in the [place] Within the Last 8 Weeks: No Recent Travel Out of the Country Within the Last 8 Weeks: No Medications and Allergies Active Medications: Active Medications Acetaminophen (Tylenol) 650 mg PO Q6H PRN PRN Reason: PAIN 1-10 AND/OR FEVER >101F Hydrocodone Bitart/Acetaminophen ([place] 5/325) 1 tab PO Q4H PRN PRN Reason: PAIN SCALE 1 TO 5 Al Hydroxide/Mg Hydroxide (Milk Of Magnruthy Liq) 30 ml PO Q12H PRN PRN Reason: Mild Constipation Albuterol (Albuterol Neb (Prn)) 2.5 mg NEB Q2HR NEB PRN PRN Reason: SHORTNESS OF BREATH/WHEEZING Bisacodyl (Dulcolax Supp) 10 mg RECTAL DAILY PRN PRN Reason: SEVERE CONSITIPATION Chlorhexidine Gluconate (Chlorhexidine 2% Cloth) 3 pack TOPICAL DAILY@0400 PRN PRN Reason: Extra cloth needed Stop: 12/02/18 03:59 Chlorhexidine Gluconate (Chlorhexidine 2% Cloth) 3 pack TOPICAL DAILY@0400 MARCI Stop: 06/12/18 03:59 Last Admin: 06/07/18 06:25 Dose: 3 pack Dextrose (D50w Vial) 50 ml IV.PUSH UNSCH PRN PRN Reason: PER HYPOGLYCEMIA PROTOCOL Famotidine (Pepcid Pf Inj) 20 mg IV.PUSH Q12HR MARCI Furosemide (Lasix Inj) 40 mg IV.PUSH Q8H MARCI Glucagon (Glucagon Inj) 1 mg OTHER PRN PRN PRN Reason: for Hypoglycemia Protocol Heparin Sodium/Dextrose (Heparin/D5w 25,000 U/250 Ml) 25,000 unit in 250 mls @ 0 mls/hr IV.CONT TITRATE PRN; Protocol PRN Reason: Per Protocol Last Admin: 06/07/18 04:36 Dose: 900 units/hr, 9 mls/hr Insulin Aspart (Novolog Insulin Correctional Sugar Inj) 0 unit SQ Q4H MARCI; Protocol Last Admin: 06/07/18 06:25 Dose: Not Given Lactulose (Lactulose Liq) 30 ml PO DAILY PRN PRN Reason: SEVERE CONSITIPATION Morphine Sulfate (Morphine Inj) 2 mg IV.PUSH Q2H PRN PRN Reason: PAIN SCALE 6 TO 10 Ondansetron HCl (Zofran Inj) 4 mg IV.PUSH Q6H PRN PRN Reason: NAUSEA OR VOMITING Potassium Chloride (K-Dur) 20 meq PO BID [facility] Stop: 06/08/18 09:01 Senna/Docusate Sodium (Chelsey-Colace) 1 tab PO BID [facility] Sennosides (Senokot) 17.2 mg PO Q12H PRN PRN Reason: Moderate Constipation Sodium Chloride (Ns Flush) 2 ml IV.FLUSH BID [facility] Sodium Chloride (Ns Flush) 2 ml IV.FLUSH PRN PRN PRN Reason: FLUSH AFTER USING IV ACCESS Allergies Allergy/AdvReac Type Severity Reaction Status Date / Time No Known Allergies Allergy Verified 06/07/18 02:50 Home Medications Medication Instructions Recorded Confirmed Type amoxicillin 875 mg PO BID 06/07/18 06/07/18 History atorvastatin 20 mg PO DAILY 06/07/18 06/07/18 History carvedilol 25 mg PO BID 06/07/18 06/07/18 History hydrochlorothiazide 25 mg PO DAILY 06/07/18 06/07/18 History losartan 100 mg PO DAILY 06/07/18 06/07/18 History Results - Labs CBC & Chem 7: 06/07/18 02:50 06/07/18 02:50 Labs: Short CBC 06/07/18 Range/Units 02:50 WBC 10.4 (4.0-11.0) th/mm3 Hgb 11.9 (11.6-15.3) gm/dL Hct 35.9 (35.0-46.0) % Plt Count 242 (150-450) th/mm3 BMP 06/07/18 02:50 Sodium 128 L Potassium 4.3 Chloride 92 L Carbon Dioxide 22.7 BUN 17 Creatinine 1.20 H Calcium 8.2 L Cardiac Enzymes 06/07/18 Range/Units 02:50 Troponin I 1.08 H* (0.02-0.05) ng/mL Liver Function 06/07/18 Range/Units 02:50 Total Bilirubin 0.7 (0.2-1.0) mg/dL AST 29 (15-37) U/L ALT 41 (10-53) U/L Alkaline Phosphatase 49 (45-117) U/L Albumin 3.5 (3.4-5.0) g/dL Urine 06/07/18 Range/Units 04:54 Urine Color Straw (Yellw/Straw) Urine Clarity Clear (Clear) Urine pH 6.0 (5.0-8.5) Ur Specific [place] 1.015 (1.002-1.035) Urine Protein Negative (Neg-Trace) mg/dL Urine Glucose (UA) 100 H (Negative) mg/dL - Imaging Impressions Chest X-Ray 06/07/18 02:51 CONCLUSION: Mild edema pattern versus interstitial infiltrate. Trace pleural fluid. Heart size within normal limits. Exam Vital signs: Vital Signs 06/07/18 02:55 06/07/18 03:03 06/07/18 03:05 Temperature Pulse Rate 93 H 93 H 93 H Respiratory Rate 24 28 H Blood Pressure 155/99 H Pulse Oximetry 96 97 06/07/18 05:02 06/07/18 05:45 06/07/18 06:00 Temperature 98.3 F Pulse Rate 89 71 Respiratory Rate 22 35 H Blood Pressure 160/90 H 116/70 Pulse Oximetry 98 96 100 06/07/18 06:21 Temperature Pulse Rate Respiratory Rate Blood Pressure Pulse Oximetry 100 Intake & Output 06/06/18 06/06/18 06/07/18 06:59 18:59 06:59 Intake Total 350 / 350 Output Total 200 / 200 Balance 150 / 150 Weight 76.5 kg Intake: IV 350 / 350 Azithromycin Inj 500 MG In NS 250 / 250 Inj 250 ML @ 250 mls/hr IV.SIG STAT STA Rx#:[id number] Zosyn 4.5 GM Premix 4.5 gm In 100 / 100 100 ml @ 200 mls/hr IV.SIG STAT STA Rx#:[id number] Output: Urine 200 / 200 Other: # Incontinent Voids 2 # Bowel Movements 0 Weight On Admission 76.5 kg - Constitutional no acute distress - Routine HEENT Exam Head: Present: normocephalic, atraumatic Eye: Present: EOMI, PERRL, normal accommodation ENT: Present: mucous membranes moist - Routine Neck Exam Present: supple, full ROM, JVD. Absent: carotid bruit - Routine Chest/Breast/Axilla Exam Chest wall: Absent: tenderness Breast: Absent: tenderness Axillae: Absent: lymphadenopathy - Routine Respiratory Exam Present: accessory muscle use, crackles, diminished air movement - Routine Cardiovascular Exam Present: RRR, S1, S2. Absent: murmur - Routine Abdominal Exam Present: soft, normoactive bowel sounds - Routine Extremities Exam Absent: cyanosis, clubbing, edema - Routine Skin Exam Present: intact. Absent: cyanosis, erythema - Routine Neurological Exam Present: alert, oriented X3, CN II-XII intact. Absent: sensory deficit, motor deficit Septic Shock Reassessment Septic shock perfusion: reassessment completed Caprini VTE Risk Assessment Caprini VTE Risk Assessment: Moderate/High Risk (score >= 2) Caprini Risk Assessment Model: Point Value = 1 Point Value = 2 Point Value = 3 Point Value = 5 Age 41-60 Minor surgery BMI > 25 kg/m2 Swollen legs Varicose veins or History of unexplained or recurrent spontaneous Oral contraceptives or hormone replacement Sepsis (< 1 month) Serious lung disease, including pneumonia (< 1 month) Abnormal pulmonary function Acute myocardial infarction Congestive heart failure (< 1 month) History of inflammatory bowel disease Medical patient at bed rest Age 61-74 Arthroscopic surgery Major open surgery (> 45 min) Laparoscopic surgery (> 45 min) Malignancy Confined to bed (> 72 hours) Immobilizing plaster cast Central venous access Age >= 75 History of VTE Family history of VTE Factor V Leiden Prothrombin [id number] Lupus anticoagulant Anticardiolipin antibodies Elevated serum homocysteine Heparin-induced thrombocytopenia Other congenital or acquired thrombophilia Stroke (< 1 month) Elective arthroplasty Hip, pelvis, or leg fracture Acute spinal cord injury (< 1 month) Prophylaxis Regimen: Total Risk Factor Score Risk Level Prophylaxis Regimen 0-1 Low Early ambulation 2 Moderate Order ONE of the following: *Sequential Compression Device (SCD) *Heparin 5000 units SQ BID 3-4 Higher Order ONE of the following medications: *Heparin 5000 units SQ TID *Enoxaparin/Lovenox 40 mg SQ daily (WT < 150 kg, CrCl > 30 mL/min) *Enoxaparin/Lovenox 30 mg SQ daily (WT < 150 kg, CrCl > 10-29 mL/min) *Enoxaparin/Lovenox 30 mg SQ BID (WT < 150 kg, CrCl > 30 mL/min) AND/OR *Sequential Compression Device (SCD) 5 or more Highest Order ONE of the following medications: *Heparin 5000 units SQ TID (Preferred with Epidurals) *Enoxaparin/Lovenox 40 mg SQ daily (WT < 150 kg, CrCl > 30 mL/min) *Enoxaparin/Lovenox 30 mg SQ daily (WT < 150 kg, CrCl > 10-29 mL/min) *Enoxaparin/Lovenox 30 mg SQ BID (WT < 150 kg, CrCl > 30 mL/min) AND *Sequential Compression Device (SCD) Assessment and Plan - Problem List (1) Elevated troponin Code(s): R74.8 - Abnormal levels of other serum enzymes Status: Acute (2) Acute respiratory failure Code(s): J96.00 - Acute respiratory failure, unspecified whether with hypoxia or hypercapnia Status: Acute (3) Essential hypertension Code(s): I10 - Essential (primary) hypertension Status: Chronic (4) Hyperlipidemia Code(s): E78.5 - Hyperlipidemia, unspecified Status: Chronic (5) Elevated brain natriuretic peptide (BNP) level Code(s): R79.89 - Other specified abnormal findings of blood chemistry Status : Acute (6) Elevated TSH Code(s): R79.89 - Other specified abnormal findings of blood chemistry Status : Acute (7) Acute kidney injury Code(s): N17.9 - Acute kidney failure, unspecified Status: Acute (8) Hyponatremia Code(s): E87.1 - Hypo-osmolality and hyponatremia Status: Acute (9) Hyperglycemia Code(s): R73.9 - Hyperglycemia, unspecified Status: Acute (10) History of chronic lymphocytic leukemia Code(s): Z85.6 - Personal history of leukemia Status: Chronic - Assessment and Plan Plan: Neuro/Psych: Acetaminophen 650 mg p.o. every 6 hours as needed fever Hydrocodone/acetaminophen 5/325 1 tablet every 4 hours. Pain 1 through 5 Morphine sulfate 2 mg IV q. hours. Pain 6 or 10 CV: Elevated troponin essential hypertension Hyperlipidemia EKG admission revealed possible Q waves in inferior leads. Troponin elevated 1. Every 6 hours x2 with EKG. Received aspirin 320 mg p.o. x1. We will start on beta-abdi, ARB, statin. Patient is on atorvastatin 20 mg daily at home. Resume. Patient is on carvedilol 25 twice daily p.o. currently on metoprolol 2.5 mg every 6 hours IV Patient is on losartan 200 mg daily at home. Will start 25 mg daily in light of acute kidney injury Holding hydrochlorothiazide 25 mg daily in light of furosemide use. 2D echocardiogram ordered. BNP is elevated. Continue to follow Lipid panel ordered Resp: Acute respiratory failure Chest x-ray revealed bilateral pulmonary pressures likely flash pulmonary edema. Diuresis with furosemide currently at 40 mg IV twice daily CT pulmonary angiogram ordered. Remains on heparin drip see above Follow-up on chest x-ray in a.m. 06/07. Maintain BiPAP 10/5 at 50%. Wean to nasal cannula as tolerated. Incentive spirometry while awake As needed albuterol aerosols every 2 hours as needed GI: N.p.o. status Pantoprazole for GI prophylaxis Docusate sodium/senna 1 tablet twice daily for bowel regimen : Straight catheterization as needed Endo: Elevated TSH Hyperglycemia Sliding scale insulin Accu-Cheks to maintain euglycemia aspart insulin low regimen every 6 hours Check hemoglobin A1c Check total T3/T4 Renal: Acute kidney injury Check urine eosinophils, sodium and creatinine. Check renal ultrasound. Monitor urine output Accurate I's and O's Heme: CBC currently within normal limits. Remains on heparin drip. Hemoccult pending ID: Previously treated for right upper respiratory infection/screen acquired with amoxicillin. Received piperacillin/tazobactam in ED. Follow-up on blood cultures. Influenza a and B- MSK: PT evaluate and treat FEN: Acute hyponatremia Replace electrolytes as clinically indicated per ICU likely protocol Access -Utilize peripheral IV. Central line if indicated Prophylaxis - -GI famotidine - -DVT SCD/heparin drip Level 3 H&P Code Status: Full code Discussed Condition With: Patient. Care plan discussed and all questions answered. H&P: Quality - VTE Deep Vein Thrombosis/Pulmonary Embolism Present on Admission: No (4) Hyperlipidemia Qualifiers: Hyperlipidemia type: unspecified Qualified Code(s): E78.5 - Hyperlipidemia, unspecified
[2018-06-07] MEDS ORDERED: Insulin NovoLOG Aspart Correctional Sugar Inj SQ SCH (08:00)
[2018-06-07] MEDS: Metoprolol Inj 5 MG/5 ML Vial IV.PUSH SCH ×3 (08:26→19:23)
[2018-06-07] MEDS: Senna/Docusate Sodium 8.6/50 MG Tablet PO SCH ×2 (08:28→20:56)
[2018-06-07] MEDS ORDERED: fentaNYL Citrate Inj 100 MCG/2 ML Ampul IV.PUSH SCH (08:30)
[2018-06-07] MEDS ORDERED: Famotidine PF Inj 20 MG/2 ML Vial IV.PUSH SCH (09:00)
--- NOTE | 2018-06-07 09:05 | MB ---
cc: Henry Ashley MD DATE: 06/07/2018 REASON FOR CONSULTATION: Possible non-ST elevation myocardial infarction. HISTORY OF PRESENT ILLNESS: The patient is a somewhat vague historian. She is a 77-year-old white female with a history of chronic lymphocytic leukemia, hypertension, hyperlipidemia, who was in her usual state of health up until last night when she began to experience severe shortness of breath. She came to the emergency department where chest x-ray suggested acute pulmonary edema. Troponin level was checked and found to be mildly abnormal. The patient does note a relatively long history of intermittent episodes of left parasternal "gnawing" sensations she believes never lasting more than a few minutes. She recalls 1 episode in the last few days occurring while [place] the [place]. When she has these gnawing sensations, there is often associated shortness of breath without nausea or diaphoresis. She denies paroxysmal nocturnal dyspnea, pedal edema, lightheadedness, syncope, near syncope, palpitations, fevers. PAST MEDICAL HISTORY: 1. Chronic lymphocytic leukemia, diagnosed about 12 years ago. 2. Hyperlipidemia. 3. Hypertension. PAST SURGICAL HISTORY: Tibia and fibula repair after fracture on the left. CARDIAC MEDICATIONS AT HOME: Atorvastatin 20 mg at bedtime, carvedilol 25 mg b.i.d., hydrochlorothiazide 25 mg daily, losartan 100 mg daily. ALLERGIES: NO KNOWN DRUG ALLERGIES. FAMILY HISTORY: Noncontributory. SOCIAL HISTORY: The patient denies any history of alcohol or tobacco abuse. REVIEW OF SYSTEMS: As in history of present illness, otherwise negative or noncontributory. She also denies headache, abdominal pain, melena, dyspepsia, bright red blood per rectum. PHYSICAL EXAMINATION: VITAL SIGNS: Her blood pressure 116/70 with a pulse of 70, respirations 22. GENERAL: She is a well-developed, well-nourished white female, in no acute distress. NECK: Jugular venous pressure is normal. Carotid pulses are 2+ bilaterally and without bruits. CHEST: Reveals diminished breath sounds at the bases. CARDIAC: She has a regular rhythm and rate with a grade I/ systolic murmur heard at the apex. No definite gallop is audible. ABDOMEN: She has a soft nontender abdomen. Bowel sounds are present. There is no definite hepatosplenomegaly. EXTREMITIES: Reveals no clubbing, cyanosis, or edema. Peripheral pulses are normal throughout. DIAGNOSTIC DATA: Chest x-ray shows increased interstitial markings. EKG shows sinus rhythm, inferior infarct age undetermined, anterolateral ST-T wave abnormalities, consider ischemia. Laboratory data includes normal CBC. INR 1.0. Potassium 4.3, BUN 17, creatinine 1.20. Troponin 1.08. Brain natriuretic peptide level 1679. IMPRESSION: Acute congestive heart failure, possible non-ST elevation myocardial infarction in this 77-year-old white female with a history of chronic lymphocytic leukemia, hypertension, hyperlipidemia. Her initial troponin level is indeed mildly abnormal. Her EKGs are markedly abnormal with ischemic anterolateral ST-T wave abnormalities. In addition, she has evidence for previous inferior infarct. The patient also notes a relatively long history of intermittent left-sided chest discomfort described as "gnawing" which I suspect is her angina. She has had episodes of angina in the last few days. Echocardiogram is pending. Given her acute congestive heart failure and recent angina which has been overall slowly escalating in frequency and given her abnormal troponin level, she has been recommended cardiac catheterization with probable percutaneous coronary intervention. The nature of these procedures and potential risks including, but not limited to , myocardial infarction, stroke, arrhythmia, bleeding, infection, and renal failure have been outlined to the patient. She agrees to proceed. RECOMMENDATIONS: 1. Continue her beta abdi and angiotensin receptor abdi. 2. Continue her usual statin. 3. Check a fasting lipid profile. 4. Cardiac catheterization today. MD JUAN De La Rosa/eli , 08:21 AM , 08:30 AM JULIANN
--- NOTE | 2018-06-07 10:12 | OTSOAPIP ---
06/07/18 SPOKE WITH GETACHEW DUNN PATIENT JUST MEDICATED FOR CTA AND THEN GOING TO [employer] 1PM. HOLD OCCUPATIONAL THERAPY TODAY. JT Therapist: Zoe Lockhart Signature on file
[2018-06-07] MEDS: Carvedilol 12.5 MG Tablet PO SCH ×2 (10:17→20:57)
--- NOTE | 2018-06-07 11:14 | US ---
EXAM DATE: 06/07/2018 11:12 AM EST AGE/SEX: 77 years / Female INDICATIONS: Bilateral leg swelling. CLINICAL DATA: This is the patient's initial encounter. Patient reports that signs and symptoms have been present for 2 days and indicates a pain score of 0/10. MEDICAL/SURGICAL HISTORY: Hypertension. Chronic lymphocytic leukemia. Hyperlipidemia. Left Tibi a/Fibula fracture. . Lymph node biopsy. COMPARISON: No prior exams available for comparison. TECHNIQUE: Venous ultrasound of both lower extremities was performed from the inguinal ligament to t he proximal calf. Real-time, color Doppler and spectral tracing, compression and augmentation techni ques were used. FINDINGS: Right Leg: Normal compression of the deep venous system from the inguinal region to the proximal nelson f. No echogenic clot is seen. Normal response of the venous system to augmentation and respiration. Left Leg: Normal compression of the deep venous system from the inguinal region to the proximal calf . No echogenic clot is seen. Normal response of the venous system to augmentation and respiration. Other: None. CONCLUSION: The study is negative for bilateral lower extremity deep venous thrombosis. Electronically signed by: Babatunde Brady MD 06/07/2018 11:13 AM EST
[2018-06-07] MEDS ORDERED: Heparin/NS PF Inj 1,000 ML ONE (14:45)
[2018-06-07] MEDS ORDERED: Heparin 10,000 UNITS/10 ML Vial (for IV use) ONE (14:46)
[2018-06-07] MEDS ORDERED: Lidocaine PF 1% Inj 30 ML Vial ONE (14:55)
[2018-06-07] MEDS ORDERED: fentaNYL Citrate Inj 100 MCG/2 ML Ampul ONE (14:56)
--- NOTE | 2018-06-07 15:59 | CATHPROC ---
[facility] HIS Report Study Information Study Number Admission Scheduled Start Study Start [id number] Jun 07 2018 3:45AM 06/07/2018 Jun 07 2018 2:14PM [place] Service Electrophysiology Study Admit Source Facility Department Emergency department [facility] - Process Control Programmer Physician and Clinical Staff Initial Henry Quiroz Cotton Converter Alli Wong,SHAUN Other cathlab, cathlab Recorder Isaias Pereyra RCIS(BS) Scrub Lana Saez,SURVEYING TECHNICIAN TECH2 Procedures Performed Procedure Location (Site) Vessel Name Angiogram LV LV Ventricle Coronary Angiograms LCA Left Coronary Coronary Angiograms RCA Right Coronary L Heart Cath Equipment Time Die Caster Description Size Mfg Part Number Used/Scraped TRANSDUCER, TRUWAVE [id number] 14:15 WAGNER MILTON * Used W/STOCKCOCK *[id number] 15:44 CARDIScienceLogic MEDICAL VASCADE, FR6 CLOSURE SYSTEM FR 6\7 Used *[id number] *[id number] *[id number] PIGTAIL ANG. 145 INFINITI [id number] CATHETER *[id number] 14:15 MALLINCKRODT SYRINGE, ANGIOMAT 150ML 150ML *[id number] Used 2SUB Sokolin CONCEPT DRAPE, RADIAL FEMORAL FULL 14:15 * [id number] *[id number] Used DEVELOPMENT BODY [id number] 14:15 Reachpod - [employer] B[employer]im BLANKET,WARM AIR CCL * Used *[id number] 14:15 Reachpod - [employer]im PACK, CCL CUSTOM * Used *[id number] 14:15 Reachpod - [employer] SUPPORT, ARTERIAL ADULT 51484 *[id number] Used [id number] 14:15 Interventional Spine PACER PEN, SKIN DUAL W/ RULER * Used *[id number] SHEATH, FR6 RADIAL PRELUDE 14:15 QuanTemplate MEDICAL FR 6 [id number] Used EASE 11CM [id number] 15:30 Parents Journey SHEATH, FR6.5 PRELUDE 11CM FR 6.5 038ACT Used *[id number] 14:15 Parents Journey WIRE, EXCHANGE 260CM 3MMJ 260CM Used *[id number] 14:15 NAMIC MANIFOLD, 4 PORT * Used *[id number] 14:15 NYCOMED OMNIPAQUE, 350 MG, 150ML 150ML [id number] Used 15:37 NYCOMED OMNIPAQUE, 350 MG, 50ML 50ML [id number] Used CATHETER, FR5 OPTITORQUE [id number] 14:51 TERCompare And Share MEDICAL FR 5 Used RADIAL TIG 4.0 *[id number] History: Current Medications Medication Dosage/Unit Route Frequency Last Date/Time Taken COZAAR Statins (any) Beta Mack ASA History: Allergies Allergy Reaction No Known Allergies History: Risk Factors Family History of Hypertension Dyslipidemia Previous PR Previous Heart Failure Premature CAD Yes Yes No No No Prior Valve Prior PCI Prior CABG Surgery No No No Cerebrovascular Peripheral Artery Chronic Lung On Dialysis Diabetes Disease Disease Disease No No No No No History: Symptoms/Diagnosis Selection Items Chest pain History: Stress Tests Stress or Imaging Studies Performed No History: Other Disease Selection Items HTN History: Other Current Smoker No Labs Hgb (g/dl) Hct (%) WBC (l/cumm) Platelets (thousands) 11.60-17.00 35.00-51.00 4.00-11.00 150.00-450.00 11.9 35.9 10.4 242 Glucose (mg/dl) BUN (mg/dl) Creatinine (mg/dl) BUN:Creatinine (1:x) 74.00-106.00 7.00-18.00 0.50-1.30 10.00-20.00 131 17 1.2 14.2 Na (meq/l) K (meq/l) 136.00-145.00 3.50-5.10 128 4.3 INR (PTT:PT) 0.90-1.10 1 Troponin I (ng/ml) CPK-MB (ng/ML) 0.02-0.05 0.50-3.60 1.08 Not Drawn Medication Medication Total Dose (Bolus/Oral) Medication Total Dosage/Unit 1% XYLOCAINE 22 mL FENTANYL 25 mcg VERSED 1 mg Medications (Bolus/Oral) Medication Time Given Dosage/Unit Administered By Reason VERSED 06/07/2018 3:18:17 PM 1 mg Judith, Alli 1 mg VERSED given in lab by Alli Wong RN in Left Antecubital via Peripheral IV. Ordered by Henry Ashley. FENTANYL 06/07/2018 3:19:00 PM 25 mcg Judith, Alli 25 mcg FENTANYL given in lab by Alli Wong RN in Left Antecubital via Peripheral IV. Ordered by Henry Heck. 1% XYLOCAINE 06/07/2018 3:19:23 PM 2 mL Dion, Henry 2 mL 1% XYLOCAINE given in lab by Henry Ashley in Right Radial via Subcutaneous. 1% XYLOCAINE 06/07/2018 3:28:39 PM 20 mL Dion, Henry 20 mL 1% XYLOCAINE given in lab by Henry Ashley in Right Groin via Subcutaneous. Medication (Drip) Medication Time Given Dosage/Unit Concentration/Unit Diluent (ml) Solution IV Solutions 06/07/2018 2:38:52 PM 0 mL (IV) 500 NaCl .9 Patient arrived on IV Solutions in Left Antecubital via Peripheral IV. Pump/Drip Flow = 20 ml/hr usin g NaCl .9. Initial Case Assessment Cardiovascular HR Rhythm NIBP Chest Pain 84 nsr 107/62 0 Edema Present Skin color Skin None Normal Warm Circulatory - Right Pulses Dorsalis Pedis Femoral Radial 3 3 3 Scale (0,1,2,3,4,d) Scale (0,1,2,3,4,d) Neurological State Oriented to time-place- Alert Moves all extremities person Respiration - General Respiration Rate SpO2 (%) (B/min) 15 96 Final Case Assessment Cardiovascular HR Rhythm NIBP Chest Pain 71 nsr 104/57 0 Edema Present Skin color Skin None Normal Warm Circulatory - Right Pulses Dorsalis Pedis Femoral Radial 3 3 3 Scale (0,1,2,3,4,d) Scale (0,1,2,3,4,d) Neurological State Oriented to time-place- Alert Moves all extremities person Respiration - General Respiration Rate SpO2 (%) (B/min) 15 96 Chronological Log Time Study Chronological Log 14:38:39 Patient arrived via Bed. Heparin drip DCed upon orange picking supervisor per MD. 14:38:39 Patient Name, D.O.B, / Armband Verified By R.N. 14:38:40 Consent signed by the physician and the patient and verified by the Process Control Programmer staff. 14:38:40 Pre-op and post- op instructions given; patient acknowledges understanding of instructions. 14:38:42 Presedation assessment performed by Process Control Programmer RN. 14:38:43 Allens test performed on the right radial and ulnar artery. POSITIVE. 14:38:47 Immediate Presedation assesment performed by physician. 14:38:48 Patient has been NPO for More than 6Hrs. 14:38:49 Skin Breakdown-none per patient 14:38:49 Patient Warmer Placed on the Table. 14:38:50 Roberto Prominences Protected 14:38:52 A # 20 IV was noted in the Antecubital (right). Grade = 0 14:38:52 A # 20 IV was noted in the Antecubital (left). Grade = 0 14:38:52 Patient arrived on IV Solutions in Left Antecubital via Peripheral IV. Pump/Drip Flow = 20 ml/hr using NaCl .9. 14:38:53 History and physical on the chart or being dictated. Assessment: Initial Case, HR=84 BPM, Rhythm=nsr, FMRL=390/62 mmhg, Chest Pain=0, Edema=None, Co aaron=Normal, Skin = Warm 14:45:01 Right Pulses: Daniel Ped=3, Femoral=3, Radial=3 Neurological: State=Alert, Ox3, CEE Respiration: Resp=15 B/min, SpO2=96 % Vitals capture started with the following parameters, Patient=Adult, Interval=5 min, Initial Pr kjxliz=151 mmHg, 14:48:49 Deflation Rate=5 mmHg, Cuff placed on Left Arm 14:49:18 Reference ECG taken 14:49:33 HR=71 bpm, FZFK=577/62 mmhg, SpO2=97.0 %, Resp=14 B/min, Pain=0, Yessy=10, Andrews=2 14:51:21 Right Radial and groin(s) prepped with 2% chlorhexidine, and draped after a 3 min. waiting time. 14:54:26 HR=76 bpm, YEMW=847/51 mmhg, SpO2=96.0 %, Resp=13 B/min, Pain=0, Yessy=10, Andrews=2 14:59:11 Pressure channel 1 zeroed. 14:59:25 HR=67 bpm, QBOX=675/57 mmhg, SpO2=95.0 %, Resp=13 B/min, Pain=0, Yessy=10, Andrews=2 14:59:42 MD paged 15:04:24 HR=67 bpm, NIBP=98/60 mmhg, SpO2=96.0 %, Resp=18 B/min, Pain=0, Yessy=10, Andrews=2 15:08:50 MD responded 15:09:23 HR=64 bpm, GOCH=843/54 mmhg, SpO2=95 %, Resp=12 B/min, Pain=0, Yessy=10, Andrews=2 15:14:24 HR=68 bpm, IZMG=704/57 mmhg, SpO2=96 %, Resp=12 B/min, Pain=0, Yessy=10, Andrews=2 15:15:55 MD arrived. ::59 Contrast Scanned :: Immediate Presedation assesment performed by physician. 15:18:17 1 mg VERSED given in lab by Alli Wong, RN in Left Antecubital via Peripheral IV. Ordered by Henry Ashley. 15:19:00 25 mcg FENTANYL given in lab by Alli Wong RN in Left Antecubital via Peripheral IV. Ord ered by Henry Ashley. Time Out. Correct patient, correct procedure, correct physician, labs, allergies, and equipment verified with livestock laborer 15:: team present. Fire risk assesment completed (see hard stop sheet for coding). Time Out Conc urred by MD and individual staff in procedure. 15:19: Case Start 15:: 2 mL 1% XYLOCAINE given in lab by Henry Ashley in Right Radial via Subcutaneous. 15:19:25 HR=67 bpm, WKCN=764/58 mmhg, SpO2=95 %, Resp=12 B/min, Pain=0, Yessy=10, Andrews=2 15:24:28 HR=63 bpm, NIBP=90/47 mmhg, SpO2=94 %, Resp=11 B/min, Pain=0, Yessy=10, Andrews=2 15:28:15 Unable to obtain R. RADIAL access, proceding with R. GROIN/FEMORAL 15::39 20 mL 1% XYLOCAINE given in lab by Henry Ashley in Right Groin via Subcutaneous. 15:29:23 HR=67 bpm, FNWI=049/55 mmhg, SpO2=93.0 %, Resp=14 B/min, Pain=0, Yessy=10, Andrews=2 15:29:39 Access site was Right Femoral Artery. 15:29:52 A SHEATH, FR6.5 PRELUDE 11CM FR 6.5 was advanced into the Fem Art (right) using the Percuta neous technique. A JL 4.0 INFINITI CATHETER FR 6 was advanced over a wire. OMNIPAQUE, 350 MG, 150ML 150ML was us ed for 15:30:54 injections. Recorded Pressure: Ao, HR=69, Condition=Condition 1 15:32:22 (Aorta) Ao 93/48/67 15:33:28 The LCA was injected and visualized at various angles. OMNIPAQUE, 350 MG, 150ML 150ML used . 15:34:26 HR=69 bpm, NIBP=91/51 mmhg, SpO2=94.0 %, Resp=15 B/min, Pain=0, Yessy=10, Andrews=2 15:34:51 Catheter was removed A 3DRC INFINITI CATHETER FR 6 was advanced over a wire. OMNIPAQUE, 350 MG, 150ML 150ML was used for 15:34:52 injections. 15:36:23 The RCA was injected and visualized at various angles. OMNIPAQUE, 350 MG, 150ML 150ML used . 15:36:31 Catheter was removed A PIGTAIL ANG. 145 INFINITI CATHETER FR 6 was advanced over a wire. OMNIPAQUE, 350 MG, 150ML 15 0ML was 15:37:12 used for injections. Recorded Pressure: LV, HR=73, Condition=Condition 1 15:39:12 (Left Ventricle) LV 89/14/22 15:39:25 HR=65 bpm, NIBP=95/50 mmhg, SpO2=95 %, Resp=13 B/min, Pain=0, Yessy=10, Andrews=2 15:39:35 The LV was injected at 10 cc/sec for a total of 30. OMNIPAQUE, 350 MG, 50ML 50ML used. Recorded Pressure: LV, Ao, HR=73, Condition=Condition 1 15:41:08 (Left Ventricle) LV 97/10/29, (Aorta) Ao 95/45/66 15:41:24 Catheter was removed 15:41:42 An injection in the Fem Art (right) was made through the SHEATH, FR6.5 PRELUDE 11CM FR 6.5. 15:43:38 Sterile dressing applied to site 15:44:13 Case End (Physician broke scrub) 15:44:13 VASCADE, FR6 CLOSURE SYSTEM FR 6\7 placement in the Fem Art (right) Assessment: Final Case, HR=71 BPM, Rhythm=nsr, ZCKM=434/57 mmhg, Chest Pain=0, Edema=None, Napanoch r=Normal, Skin = Warm 15:44:22 Right Pulses: Daniel Ped=3, Femoral=3, Radial=3 Neurological: State=Alert, Ox3, CEE Respiration: Resp=15 B/min, SpO2=96 % 15:44:24 HR=73 bpm, JEAH=716/57 mmhg, SpO2=96.0 %, Resp=14 B/min, Pain=0, Yessy=10, Andrews=2 15:44:36 Catheter(s) removed without difficulty 15:44:38 No case complications noted. 15:44:39 Cine recording checked. 15:44:40 Bedside Report will be given. 15:44:42 Implantable Device card placed in patient's chart. 15:44:45 A Left Heart Cath was performed. 15:49:25 HR=71 bpm, JGMJ=575/64 mmhg, Resp=20 B/min, Pain=0, Yessy=10, Andrews=2 15:54:29 HR=67 bpm, NIBP=98/56 mmhg, SpO2=95.0 %, Resp=10 B/min, Pain=0, Yessy=10, Andrews=2 15:58:59 Patient moved to stretcher 15:59:00 Vitals capture stopped. End Study - Contrast Media Used In Study Contrast Total Opened (mL) Total Used (mL) Total Wasted (mL) Omnipaque 350 90 90 0 End Study - Maximum Contrast Load Max Contrast Load (mL) 318.8 End Study - Radiation Exposure Fluoro Time (minutes) 2.2 End Study - Patient Disposition Complications Transferred To Interventional Outcome No Critical Care Bed No attempt made
--- NOTE | 2018-06-07 16:07 | ECG ---
Date Performed: 06/07/2018 Time Performed: 03:04:12 PTAGE: 77 years EKG: Sinus rhythm POSSIBLE LEFT ATRIAL ENLARGEMENT INFERIOR MYOCARDIAL INFARCTION MODERATE T-WAVE ABNORMALITY, CONSIDE R ANTEROLATERAL ISCHEMIA ABNORMAL ECG NO PREVIOUS TRACING DOCTOR: Zach Monte Interpretating Date/Time 06/07/2018 16:03:59
--- NOTE | 2018-06-07 16:08 | ECG ---
Date Performed: 06/07/2018 Time Performed: 04:04:18 PTAGE: 77 years EKG: Sinus rhythm LEFT ATRIAL ENLARGEMENT PROBABLE LATERAL MYOCARDIAL INFARCTION INFERIOR MYOCARDIAL INFARCTION ST DEV IATION AND MODERATE T-WAVE ABNORMALITY, CONSIDER ANTERIOR ISCHEMIA ABNORMAL ECG PREVIOUS TRACING : 06/07/2018 03.04 Since the previous tracing, no significant change noted DOCTOR: Zach Monte Interpretating Date/Time 06/07/2018 16:04:15
--- NOTE | 2018-06-07 16:23 | MA ---
cc: Henry Ashley MD DATE: 06/07/2018 PROCEDURE: Left heart catheterization, selective coronary angiography, left ventriculography. PROCEDURE NOTES: The patient was brought to the cardiac catheterization laboratory in a fasting state after having signed informed consent. The right radial and right groin regions were prepared and draped as per policy. Arterial access was obtained via the right radial artery. However, advancement of the wire was not possible; it appears there may be a radial artery loop. The right groin was anesthetized with 1% lidocaine. Arterial access was obtained via the right femoral artery and a 6-Belgian sheath placed. Coronary arteriography was performed using 6-Belgian Henri left 4.0 and right progressive catheters. Left ventriculography was done using a standard 6-Belgian pigtail. There were no apparent immediate complications. HEMODYNAMIC DATA: Left ventricle 97 with an end diastolic pressure of 29, aorta 95/45 with a mean of 66. CORONARY ARTERIOGRAPHY: The left main is probably diffusely diseased. It is somewhat difficult to quantify the degree of stenosis in the left main, but may approach 30% diffusely. The left anterior descending is totally occluded proximally, and there is a long zone of total occlusion extending to the mid LAD. The distal LAD is diffusely diseased, probably up to 20% to 30% severity. The LAD very proximally gives rise to a small to medium-sized diagonal, which has 90% stenosis proximally. The left circumflex is a large dominant vessel giving rise to a small to medium-sized obtuse marginal from its proximal portion. The proximal portion of this obtuse marginal has 80% stenosis. The mid left circumflex has 50% tubular stenosis. The posterior descending artery appears to be free of disease. The right coronary artery is a very small, nondominant vessel, which has severe distal disease resulting in up to 80% stenosis. LEFT VENTRICULOGRAPHY: Contrast injection of the left ventricle reveals a small area of apical akinesis as well as severe hypokinesis of all other segments. Estimated ejection fraction is 20%. CONCLUSIONS: 1. Severe 3-vessel coronary artery disease. 2. Left dominant system. 3. Severely reduced left ventricular systolic function with ejection fraction estimated at 20%. DISCUSSION: The patient will be referred for possible high risk bypass surgery. Bypass grafts could be considered to the distal left circumflex, obtuse marginal, diagonal, distal LAD. Henry Ashley MD GHEvelina/ts , 03:54 PM , 04:07 PM MTDTico
[2018-06-07] MEDS ORDERED: Iohexol 350 MG/ML 100 ML Vial (for Cath Lab) IVCONTRAST ONE (16:47)
[2018-06-07] MEDS: Sod Chloride 0.9% Inj 1,000 ML IV.CONT SCH (18:54)
--- NOTE | 2018-06-07 18:56 | ECHRPT ---
Indication: HEART FAILURE CONCLUSIONS Normal left ventricular size. Wall thickness is normal. The left ventricular systolic function is mildly reduced with an estimated ejection fraction of 40- 45%. There is global hypokinesis with distinct regional wall motion abnormalities. There is akinesis of the apex, mid to apical lateral wall, apical posterolateral wall. and anteroapi nelson wall. The left atrial size is upper limits of normal. Mild mitral valve regurgitation. Aortic valve sclerosis is present. The estimated pulmonary arterial pressure is 30mmHg BP: / HR: Rhythm: Sinus MEASUREMENTS (Male / Female) Normal Values Technical Quality:Fair 2D ECHO LV Diastolic Diameter PLAX 5.0 cm 4.2 - 5.9 / 3.9 - 5.3 cm LV Systolic Diameter PLAX 3.9 cm IVS Diastolic Thickness 1.1 cm 0.6 - 1.0 / 0.6 - 0.9 cm LVPW Diastolic Thickness 1.1 cm 0.6 - 1.0 / 0.6 - 0.9 cm LV Relative Wall Thickness 0.4 RV Internal Dim ED PLAX 2.0 cm LA Systolic Diameter LX 4.0 cm 3.0 - 4.0 / 2.7 - 3.8 cm LV Ejection Fraction MOD BP 46.7 % >= 55 % LV Ejection Fraction MOD 4C 42.7 % LV Ejection Fraction 4C AL 39.5 % LV Ejection Fraction MOD 2C 47.5 % LV Ejection Fraction 2C AL 47.0 % DOPPLER AV Peak Velocity 144.0 cm/s AV Peak Gradient 8.3 mmHg MR Peak Velocity 490.0 cm/s MR Peak Gradient 96.0 mmHg Mitral E Point Velocity 67.6 cm/s Mitral A Point Velocity 106.0 cm/s Mitral E to A Ratio 0.6 LV E' Lateral Velocity 5.9 cm/s Mitral E to LV E' Lateral Ratio 11.4 LV E' Septal Velocity 4.4 cm/s Mitral E to LV E' Septal Ratio 15.4 TR Peak Velocity 223.0 cm/s TR Peak Gradient 19.9 mmHg Right Atrial Pressure 10.0 mmHg Pulmonary Artery Systolic Pressu 29.9 mmHg Right Ventricular Systolic Press 29.9 mmHg FINDINGS LEFT VENTRICLE Normal left ventricular size. Wall thickness is normal. The left ventricular systolic function is mildly reduced with an estimated ejection fraction is 40-4 5%. There is global hypokinesis with distinct regional wall motion abnormalities. There is akinesis of the apex, mid to apical lateral wall, apical posterolateral wall. and anteroapi nelson wall. RIGHT VENTRICLE Normal right ventricular size and systolic function. LEFT ATRIUM The left atrial size is upper limits of normal. RIGHT ATRIUM The right atrial size is normal. ATRIAL SEPTUM Normal atrial septal thickness without atrial level shunting by limited color doppler interrogation. AORTA The aortic root and proximal ascending aorta are normal in size on limited imaging. MITRAL VALVE Mild thickening of the mitral valve leaflets. Mild mitral valve regurgitation. AORTIC VALVE Trileaflet aortic valve. Aortic valve sclerosis is present. No aortic valve stenosis or regurgitation. TRICUSPID VALVE The tricuspid valve is not well visualized. There is mild tricuspid valve regurgitation. The estimated pulmonary arterial pressure is 30mmHg PULMONARY VALVE No pulmonary valve regurgitation or stenosis. VESSELS The inferior vena cava is normal in size. PERICARDIUM No pericardial effusion. Clifton Church (Electronically Signed) Final Date:07 June 2018 18:55
[2018-06-07] MEDS: Famotidine PF Inj 20 MG/2 ML Vial IV.PUSH SCH (20:55)
[2018-06-08] MEDS: Insulin NovoLOG Aspart Correctional Sugar Inj SQ SCH ×4 (00:18→15:55)
[2018-06-08] MEDS: Metoprolol Inj 5 MG/5 ML Vial IV.PUSH SCH ×4 (00:19→18:15)
[2018-06-08 03:24] LABS: Baso % (Auto) 0.5 % (0.0-2.0); Eos % (Auto) 0.5 % (0.0-4.0); Hematocrit 30.6 % (35.0-46.0); Lymph % (Auto) 12.7 % (9.0-44.0); Mean Corpuscular Hemoglobin 32.5 pg (27.0-34.0); Mean Corpuscular Volume 90.1 fL (80.0-100.0); Mean Platelet Volume 8.1 fL (7.0-11.0); Mono # (Auto) 0.6 th/mm3 (0.0-0.9); Mono % (Auto) 7.1 % (0.0-8.0); Neut # (Auto) 6.4 th/mm3 (1.8-7.7); Neut % (Auto) 79.2 % (16.0-70.0); Platelet Count 177 th/mm3 (150-450); Red Blood Count 3.39 mil/mm3 (4.00-5.30); Red Cell Distribution Width 13.8 % (11.6-17.2); White Blood Count 8.1 th/mm3 (4.0-11.0)
--- NOTE | 2018-06-08 03:29 | XR ---
EXAM DATE: 06/08/2018 3:20 AM EST AGE/SEX: 77 years / Female INDICATIONS: Short of breath. CLINICAL DATA: This is the patient's subsequent encounter. Patient reports that signs and symptoms h ave been present for 2 days and indicates a pain score of Nonresponsive. MEDICAL/SURGICAL HISTORY: Non-responsive. Non-responsive. COMPARISON: [facility], CHEST 1V SINGLE AP, 06/07/2018. . FINDINGS: Cardiomegaly with mild basilar airspace disease. Small effusions. Slight improvement in edema pattern . No pneumothorax. CONCLUSION: Slight improvement in pulmonary edema pattern. Persistent basilar airspace disease with small effusio ns. Electronically signed by: Jordan Londono MD 06/08/2018 3:27 AM EST
[2018-06-08 03:39] LABS: Alanine Aminotransferase 43 U/L (10-53); Albumin 3.4 g/dL (3.4-5.0); Anion Gap 7 meq/L (5-15); Aspartate Aminotransferase 99 U/L (15-37); Blood Urea Nitrogen 18 mg/dL (7-18); Calcium 7.9 mg/dL (8.5-10.1); Carbon Dioxide 29.5 meq/L (21.0-32.0); Chloride 95 meq/L (98-107); Glomerular Filtration Rate 57 mL/min (>89); Glucose,Random 119 mg/dL (74-106); Magnesium 1.9 mg/dL (1.5-2.5); Phosphorus 3.4 mg/dL (2.5-4.9); Potassium 3.7 meq/L (3.5-5.1); Sodium 131 meq/L (136-145)
[2018-06-08 03:43] LABS: Alkaline Phosphatase 40 U/L (45-117)
[2018-06-08] MEDS ORDERED: Azithromycin Inj 500 MG in Sodium Chlor 0.9% Inj 250 ML IV.SIG SCH (04:00)
[2018-06-08] MEDS: Chlorhexidine Gluconate 2% 1 Pack (2 Cloths) TOPICAL SCH (05:14)
--- NOTE | 2018-06-08 08:41 | P.PNCA ---
Subjective Interval history: Denies dyspnea, CP, dizziness, PND, palpitations. Medications and Allergies Active Medications: Active Medications Acetaminophen (Tylenol) 650 mg PO Q6H PRN PRN Reason: PAIN 1-10 AND/OR FEVER >101F Hydrocodone Bitart/Acetaminophen ([place] 5/325) 1 tab PO Q4H PRN PRN Reason: PAIN SCALE 1 TO 5 Al Hydroxide/Mg Hydroxide (Milk Of Magnruthy Liq) 30 ml PO Q12H PRN PRN Reason: Mild Constipation Albuterol (Albuterol Neb (Prn)) 2.5 mg NEB Q2HR NEB PRN PRN Reason: SHORTNESS OF BREATH/WHEEZING Albuterol (Duoneb Neb (John)) 1 ampul NEB Q4HR WHILE AWAKE NEB [facility] Last Admin: 06/08/18 07:50 Dose: 1 ampul Aspirin (Aspirin Chew) 81 mg PO DAILY [facility] Atorvastatin Calcium (Lipitor) 20 mg PO DAILY [facility] Last Admin: 06/07/18 08:28 Dose: 20 mg Bisacodyl (Dulcolax Supp) 10 mg RECTAL DAILY PRN PRN Reason: SEVERE CONSITIPATION Carvedilol (Coreg) 12.5 mg PO BID [facility] Last Admin: 06/07/18 20:57 Dose: 12.5 mg Chlorhexidine Gluconate (Chlorhexidine 2% Cloth) 3 pack TOPICAL DAILY@0400 PRN PRN Reason: Extra cloth needed Stop: 06/12/18 03:59 Chlorhexidine Gluconate (Chlorhexidine 2% Cloth) 3 pack TOPICAL DAILY@0400 [facility] Stop: 06/12/18 03:59 Last Admin: 06/08/18 05:14 Dose: 3 pack Dextrose (D50w Vial) 50 ml IV.PUSH UNSCH PRN PRN Reason: PER HYPOGLYCEMIA PROTOCOL Diphenhydramine HCl (Benadryl) 50 mg PO INSIDE [employer]OR [facility] Stop: 06/11/18 08:29 Famotidine (Pepcid Pf Inj) 10 mg IV.PUSH Q12HR [facility] Last Admin: 06/07/18 20:55 Dose: 10 mg Fentanyl Citrate (Fentanyl Inj) 50 mcg IV.PUSH [employer] [facility] Stop: 06/11/18 08:29 Furosemide (Lasix Inj) 40 mg IV.PUSH Q8H [facility] Last Admin: 06/08/18 02:35 Dose: 40 mg Glucagon (Glucagon Inj) 1 mg OTHER PRN PRN PRN Reason: for Hypoglycemia Protocol Heparin Sodium/Dextrose (Heparin/D5w 25,000 U/250 Ml) 25,000 unit in 250 mls @ 0 mls/hr IV.CONT TITRATE PRN; Protocol PRN Reason: Per Protocol Last Admin: 06/07/18 04:36 Dose: 900 units/hr, 9 mls/hr Sodium Chloride (Ns Inj) 1,000 mls @ 30 mls/hr IV.CONT .Q24H [facility] Last Admin: 06/07/18 18:54 Dose: 30 mls/hr Insulin Aspart (Novolog Insulin [place]al Sugar Inj) 0 unit SQ Q4H [facility]; Protocol Last Admin: 06/08/18 05:16 Dose: Not Given Lactulose (Lactulose Liq) 30 ml PO DAILY PRN PRN Reason: SEVERE CONSITIPATION Losartan Potassium (Cozaar) 25 mg PO DAILY [facility] Last Admin: 06/07/18 10:17 Dose: 25 mg Metoprolol Tartrate (Lopressor Inj) 2.5 mg IV.PUSH Q6H [facility] Last Admin: 06/08/18 07:13 Dose: 2.5 mg Midazolam HCl (Versed Inj) 1 mg IV.PUSH [employer] [facility] Stop: 06/11/18 08:29 Morphine Sulfate (Morphine Inj) 2 mg IV.PUSH Q2H PRN PRN Reason: PAIN SCALE 6 TO 10 Ondansetron HCl (Zofran Inj) 4 mg IV.PUSH Q6H PRN PRN Reason: NAUSEA OR VOMITING Last Admin: 06/07/18 08:27 Dose: 4 mg Potassium Chloride (K-Dur) 20 meq PO BID [facility] Stop: 06/08/18 09:01 Last Admin: 06/07/18 20:53 Dose: 20 meq Senna/Docusate Sodium (Chelsey-Colace) 1 tab PO BID [facility] Last Admin: 06/07/18 20:56 Dose: 1 tab Sennosides (Senokot) 17.2 mg PO Q12H PRN PRN Reason: Moderate Constipation Sodium Chloride (Ns Flush) 2 ml IV.FLUSH BID [facility] Last Admin: 06/07/18 20:54 Dose: 2 ml Sodium Chloride (Ns Flush) 2 ml IV.FLUSH PRN PRN PRN Reason: FLUSH AFTER USING IV ACCESS Sodium Chloride (Ns Flush) 2 ml IV.FLUSH BID [facility] Last Admin: 06/07/18 20:54 Dose: 2 ml Sodium Chloride (Ns Flush) 2 ml IV.FLUSH PRN PRN PRN Reason: FLUSH AFTER USING IV ACCESS Allergies Allergy/AdvReac Type Severity Reaction Status Date / Time No Known Allergies Allergy Verified 06/07/18 02:50 Home Medications Medication Instructions Recorded Confirmed Type amoxicillin 875 mg PO BID 06/07/18 06/07/18 History atorvastatin 20 mg PO DAILY 06/07/18 06/07/18 History carvedilol 25 mg PO BID 06/07/18 06/07/18 History hydrochlorothiazide 25 mg PO DAILY 06/07/18 06/07/18 History losartan 100 mg PO DAILY 06/07/18 06/07/18 History Physical Exam Vital signs: Vital Signs 06/07/18 09:00 06/07/18 10:00 06/07/18 11:00 Temperature Pulse Rate 74 71 70 Respiratory Rate 23 23 17 Blood Pressure 122/74 103/55 L 104/63 Pulse Oximetry 98 97 97 06/07/18 12:00 06/07/18 12:08 06/07/18 13:00 Temperature 98.4 F Pulse Rate 68 77 72 Respiratory Rate 18 16 20 Blood Pressure 99/56 L 103/72 Pulse Oximetry 98 96 06/07/18 14:00 06/07/18 16:00 06/07/18 16:15 Temperature 98.2 F Pulse Rate 69 68 65 Respiratory Rate 22 20 21 Blood Pressure 94/51 L 100/58 L Pulse Oximetry 94 L 06/07/18 16:17 06/07/18 16:35 06/07/18 17:00 Temperature Pulse Rate 66 70 65 Respiratory Rate 21 19 19 Blood Pressure 100/58 L 100/58 L 103/55 L Pulse Oximetry 97 99 06/07/18 18:00 06/07/18 19:00 06/07/18 20:00 Temperature 98.5 F Pulse Rate 71 68 69 Respiratory Rate 20 20 20 Blood Pressure 93/55 L 112/57 L 116/60 Pulse Oximetry 95 97 97 06/07/18 21:00 06/07/18 21:17 06/07/18 22:00 Temperature Pulse Rate 64 66 62 Respiratory Rate 19 26 H 17 Blood Pressure 99/54 L 101/56 L Pulse Oximetry 95 97 97 06/07/18 23:00 06/07/18 23:18 06/07/18 23:21 Temperature Pulse Rate 60 72 67 Respiratory Rate 12 20 17 Blood Pressure 92/52 L 86/56 L 101/53 L Pulse Oximetry 95 97 96 06/07/18 23:30 06/08/18 00:00 06/08/18 00:01 Temperature 98.7 F Pulse Rate 60 75 73 Respiratory Rate 12 17 17 Blood Pressure 99/58 L 93/50 L Pulse Oximetry 97 97 97 06/08/18 00:30 06/08/18 01:00 06/08/18 01:05 Temperature Pulse Rate 60 59 L 75 Respiratory Rate 16 13 20 Blood Pressure 96/52 L 75/37 L 97/62 L Pulse Oximetry 97 97 98 06/08/18 02:00 06/08/18 03:00 06/08/18 04:00 Temperature 98.5 F Pulse Rate 60 60 69 Respiratory Rate 15 18 20 Blood Pressure 101/54 L 112/61 Pulse Oximetry 95 98 98 06/08/18 04:01 06/08/18 05:00 06/08/18 06:00 Temperature Pulse Rate 70 57 L 65 Respiratory Rate 20 13 21 Blood Pressure 102/72 104/52 L 110/56 L Pulse Oximetry 97 96 98 06/08/18 07:00 06/08/18 07:01 06/08/18 07:52 Temperature Pulse Rate 80 81 68 Respiratory Rate 20 20 32 H Blood Pressure 129/65 Pulse Oximetry 97 98 95 Intake & Output 06/07/18 06/08/18 06/08/18 18:59 06:59 18:59 Intake Total 485 / 485 100 / 100 Output Total 2700 / 2700 1550 / 1550 Balance -2215 / -2215 -1450 / -1450 Weight 74.8 kg Intake: IV 5 / 5 Heparin/NS PF Inj 1,000 ML @ 0 5 / 5 mls/hr .ROUTE .[facility] Rx#: [id number] Oral 480 / 480 100 / 100 Output: Urine 2700 / 2700 1550 / 1550 Other: # Incontinent Voids 1 # Bowel Movements 0 - Constitutional no acute distress - Routine Neck Exam Absent: JVD - Routine Respiratory Exam Present: CTA bilaterally - Routine Cardiovascular Exam Present: RRR, S1, S2. Absent: murmur, gallop - Routine Abdominal Exam Present: soft, normoactive bowel sounds. Absent: tenderness, organomegaly - Routine Extremities Exam Absent: cyanosis, clubbing, edema Comments: Right groin nontender, no hematoma. Results 06/08/18 03:00 06/08/18 03:00 Cardiac Enzymes 06/07/18 06/07/18 06/07/18 Range/Units 02:50 02:50 20:07 AST 29 (15-37) U/L Troponin I 1.08 H* 24.80 H* D (0.02-0.05) ng/mL B-Natriuretic Peptide 1679 H (0-100) pg/mL 06/08/18 Range/Units 03:00 AST 99 H (15-37) U/L Troponin I 17.90 H* D (0.02-0.05) ng/mL B-Natriuretic Peptide (0-100) pg/mL Coagulation 06/07/18 06/07/18 Range/Units 02:50 02:50 PT 10.6 (9.8-11.6) sec APTT 25.4 (23.4-31.7) sec B-Natriuretic Peptide 1679 H (0-100) pg/mL CBC 06/07/18 06/08/18 Range/Units 02:50 03:00 WBC 10.4 8.1 (4.0-11.0) th/mm3 RBC 3.87 L 3.39 L (4.00-5.30) mil/mm3 Hgb 11.9 11.0 L (11.6-15.3) gm/dL Hct 35.9 30.6 L (35.0-46.0) % Plt Count 242 177 (150-450) th/mm3 Neut # (Auto) 7.6 6.4 (1.8-7.7) th/mm3 Lymph # (Auto) 2.1 1.0 (1.0-4.8) th/mm3 [place] # (Auto) 0.5 0.6 (0.0-0.9) th/mm3 Eos # (Auto) 0.1 0.0 (0.0-0.4) th/mm3 Baso # (Auto) 0.1 0.0 (0.0-0.2) th/mm3 Comprehensive Metabolic Panel 06/07/18 06/08/18 Range/Units 02:50 03:00 Sodium 128 L 131 L (136-145) meq/L Potassium 4.3 3.7 (3.5-5.1) meq/L Chloride 92 L 95 L (98-107) meq/L Carbon Dioxide 22.7 29.5 (21.0-32.0) meq/L BUN 17 18 (7-18) mg/dL Creatinine 1.20 H 0.96 (0.50-1.00) mg/dL Calcium 8.2 L 7.9 L (8.5-10.1) mg/dL AST 29 99 H (15-37) U/L ALT 41 43 (10-53) U/L Alkaline Phosphatase 49 40 L (45-117) U/L Total Protein 7.3 7.0 (6.4-8.2) g/dL Albumin 3.5 3.4 (3.4-5.0) g/dL Intake and Output 06/07/18 06/08/18 06/08/18 22:59 06:59 14:59 Intake Total 485 / 485 100 / 100 Output Total 2700 / 2700 1550 / 1550 Balance -2215 / -2215 -1450 / -1450 Intake: IV 5 / 5 Heparin/NS PF Inj 1,000 ML @ 0 5 / 5 mls/hr .ROUTE .[facility] Rx#: [id number] Oral 480 / 480 100 / 100 Output: Urine 2700 / 2700 1550 / 1550 Other: # Incontinent Voids 1 # Bowel Movements 0 Weight 74.8 kg - Imaging and Cardiology Imaging: Impressions Venous Doppler Study 06/07/18 00:00 CONCLUSION: The study is negative for bilateral lower extremity deep venous thrombosis. Chest X-Ray 06/07/18 02:51 CONCLUSION: Mild edema pattern versus interstitial infiltrate. Trace pleural fluid. Heart size within normal limits. Chest X-Ray 06/08/18 03:55 CONCLUSION: Slight improvement in pulmonary edema pattern. Persistent basilar airspace disease with small effusions. Assessment and Plan - Assessment (1) Coronary artery disease Code(s): I25.10 - Atherosclerotic heart disease of [place] coronary artery without angina pectoris Status: Chronic Plan: Status post NSTEMI. Stable overnight. No further angina. Cath shows severe multivessel CAD. Await surgical opinion regarding CABG. Echo reviewed. Suspect EF is around 30%. REC await CT surgery consultation, continue current medical regimen (2) Ischemic cardiomyopathy Code(s): I25.5 - Ischemic cardiomyopathy Status: Chronic Plan: Doing much better s/p vigorous diuresis since admission. EF seems 20-25% by cath, reported 35-40% by echo. Echo reviewed. Suspect EF closer to ~30%. Continue beta abdi, ARB. Change to oral furosemide. (3) Essential hypertension Code(s): I10 - Essential (primary) hypertension Status: Chronic Plan: Stable. Mostly normotensive. - Plan Code Status: full code Discussed Condition With: patient, at length (1) Coronary artery disease Qualifiers: Coronary Disease-Associated Artery/Lesion type: [place] artery [place] vs. transplanted heart: [place] heart Associated angina: with unstable angina Qualified Code(s): I25.110 - Atherosclerotic heart disease of [place] coronary artery with unstable angina pectoris
[2018-06-08] MEDS: Senna/Docusate Sodium 8.6/50 MG Tablet PO SCH ×2 (08:59→21:15)
[2018-06-08] MEDS: Famotidine PF Inj 20 MG/2 ML Vial IV.PUSH SCH (08:59)
[2018-06-08] MEDS: Carvedilol 12.5 MG Tablet PO SCH ×2 (09:25→21:14)
--- NOTE | 2018-06-08 10:30 | ECG ---
Date Performed: 06/07/2018 Time Performed: 16:44:53 PTAGE: 77 years EKG: Sinus rhythm POSSIBLE LEFT ATRIAL ENLARGEMENT INFERIOR MYOCARDIAL INFARCTION , PROBABLY OLD ANTEROLATERAL MYOCARD IAL INFARCTION , OF INDETERMINATE AGE ABNORMAL ECG PREVIOUS TRACING : 06/07/2018 04.04 DOCTOR: Eliot Ceja Interpretating Date/Time 06/08/2018 10:29:35
--- NOTE | 2018-06-08 14:01 | P.PNCC ---
Subjective Subjective Remarks/Hospital Course: This is a 77-year-old female. Date of admission 06/07/2018. Past medical history includes hypertension, hyperlipidemia and CLL diagnosed in 2005. Patient presents to [facility] originally from [place] with a one-week history of progressive shortness of breath. Recently, patient was started on amoxicillin for suspected upper year respiratory tract infection. This morning approximately 2 AM, EMS was called due to acute tachypnea. When EMS arrived saturations were in the 70s. She was unable to speak complete status post able to nod her head to questions per report. Denies chest pain. Denies abdominal pain Of note patient recently traveled from [place] via car approximately week ago. In the ED, patient was noted to have a chest x-ray revealing likely flash pulmonary edema. Patient received 40 mg IV furosemide. EKG revealed Q waves in inferior leads. BNP was elevated. Creatinine was slightly elevated 1.[address] Zuleta was called and will be consulted. Patient was placed on BiPAP and was transferred to the main campus for further evaluation treatment. At the present time, patient is currently less tachypneic. Requesting for BiPAP removed. Again denies chest pain, abdominal pain, edema in the lower extremities. Hemodynamically stable. Subjective 06/08: Resting comfortably in bed. Remains on 2 L nasal cannula. Clinically of chest congestion. Started on ceftriaxone and azithromycin. There is significant three-vessel coronary disease. Considering CABG. Objective Vital Signs / I&O: Vital Signs 06/07/18 14:00 06/07/18 16:00 06/07/18 16:15 Temperature 98.2 F Pulse Rate 69 68 65 Respiratory Rate 22 20 21 Blood Pressure 94/51 L 100/58 L Pulse Oximetry 94 L 06/07/18 16:17 06/07/18 16:35 06/07/18 17:00 Temperature Pulse Rate 66 70 65 Respiratory Rate 21 19 19 Blood Pressure 100/58 L 100/58 L 103/55 L Pulse Oximetry 97 99 06/07/18 18:00 06/07/18 19:00 06/07/18 20:00 Temperature 98.5 F Pulse Rate 71 68 69 Respiratory Rate 20 20 20 Blood Pressure 93/55 L 112/57 L 116/60 Pulse Oximetry 95 97 97 06/07/18 21:00 06/07/18 21:17 06/07/18 22:00 Temperature Pulse Rate 64 66 62 Respiratory Rate 19 26 H 17 Blood Pressure 99/54 L 101/56 L Pulse Oximetry 95 97 97 06/07/18 23:00 06/07/18 23:18 06/07/18 23:21 Temperature Pulse Rate 60 72 67 Respiratory Rate 12 20 17 Blood Pressure 92/52 L 86/56 L 101/53 L Pulse Oximetry 95 97 96 06/07/18 23:30 06/08/18 00:00 06/08/18 00:01 Temperature 98.7 F Pulse Rate 60 75 73 Respiratory Rate 12 17 17 Blood Pressure 99/58 L 93/50 L Pulse Oximetry 97 97 97 06/08/18 00:30 06/08/18 01:00 06/08/18 01:05 Temperature Pulse Rate 60 59 L 75 Respiratory Rate 16 13 20 Blood Pressure 96/52 L 75/37 L 97/62 L Pulse Oximetry 97 97 98 06/08/18 02:00 06/08/18 03:00 06/08/18 04:00 Temperature 98.5 F Pulse Rate 60 60 69 Respiratory Rate 15 18 20 Blood Pressure 101/54 L 112/61 Pulse Oximetry 95 98 98 06/08/18 04:01 06/08/18 05:00 06/08/18 06:00 Temperature Pulse Rate 70 57 L 65 Respiratory Rate 20 13 21 Blood Pressure 102/72 104/52 L 110/56 L Pulse Oximetry 97 96 98 06/08/18 07:00 06/08/18 07:01 06/08/18 07:52 Temperature Pulse Rate 80 81 68 Respiratory Rate 20 20 32 H Blood Pressure 129/65 Pulse Oximetry 97 98 95 06/08/18 08:00 06/08/18 10:00 06/08/18 11:03 Temperature 98.2 F Pulse Rate 71 74 69 Respiratory Rate 18 22 Blood Pressure 111/71 Pulse Oximetry 94 L 06/08/18 12:00 Temperature 98.4 F Pulse Rate 64 Respiratory Rate 17 Blood Pressure 109/59 L Pulse Oximetry 95 Intake & Output 06/07/18 06/08/18 06/08/18 18:59 06:59 18:59 Intake Total 485 / 485 100 / 100 Output Total 2700 / 2700 1550 / 1550 Balance -2215 / -2215 -1450 / -1450 Weight 74.8 kg Intake: IV 5 / 5 Heparin/NS PF Inj 1,000 ML @ 0 5 / 5 mls/hr .ROUTE .[facility] Rx#: [id number] Oral 480 / 480 100 / 100 Output: Urine 2700 / 2700 1550 / 1550 Other: # Incontinent Voids 1 # Bowel Movements 0 Result Diagrams: 06/08/18 03:00 06/08/18 03:00 Other Results: Microbiology 06/07/18 03:05 Blood - Peripheral Aerobic Blood Culture - Preliminary No growth in 1 day 06/07/18 03:05 Blood - Peripheral Anaerobic Blood Culture - Preliminary No growth in 1 day 06/07/18 03:15 Blood - Peripheral Aerobic Blood Culture - Preliminary No growth in 1 day 06/07/18 03:15 Blood - Peripheral Anaerobic Blood Culture - Preliminary No growth in 1 day 06/07/18 04:51 Nasal Wash Influenza Types A,B Antigen - Final Negative for FLU A and B antigen Infection due to influenza A or B cannot be ruled out since the antigen present in the sample may be below the detection limit of the test. Imaging: Venous Doppler Study 06/07/18 00:00 CONCLUSION: The study is negative for bilateral lower extremity deep venous thrombosis. Chest X-Ray 06/07/18 02:51 CONCLUSION: Mild edema pattern versus interstitial infiltrate. Trace pleural fluid. Heart size within normal limits. Chest X-Ray 06/08/18 03:55 CONCLUSION: Slight improvement in pulmonary edema pattern. Persistent basilar airspace disease with small effusions. Objective Remarks: GENERAL: This is a 77-year-old female resting in bed in no acute distress SKIN: Warm and dry. HEAD: Atraumatic. Normocephalic. EYES: Pupils equal and round. No scleral icterus. No injection or drainage. ENT: No nasal bleeding or discharge. Mucous membranes pink and moist. NECK: Trachea midline. No JVD. CARDIOVASCULAR: Regular rate and rhythm. S1, S2 no S4. RESPIRATORY: No accessory muscle use. Few crackles present bilateral. No wheezing. GASTROINTESTINAL: Abdomen soft, non-tender, nondistended. Hepatic and splenic margins not palpable. MUSCULOSKELETAL: Extremities without clubbing, cyanosis, or edema. No obvious deformities. NEUROLOGICAL: Awake and alert. No obvious cranial nerve deficits. Motor grossly within normal limits. Five out of 5 muscle strength in the arms and legs. Normal speech. PSYCHIATRIC: Appropriate mood and affect; insight and judgment normal. Assessment and Plan - Problem List (1) Elevated troponin Code(s): R74.8 - Abnormal levels of other serum enzymes Status: Acute (2) Acute respiratory failure Code(s): J96.00 - Acute respiratory failure, unspecified whether with hypoxia or hypercapnia Status: Acute (3) Essential hypertension Code(s): I10 - Essential (primary) hypertension Status: Chronic (4) Hyperlipidemia Code(s): E78.5 - Hyperlipidemia, unspecified Status: Chronic (5) Elevated brain natriuretic peptide (BNP) level Code(s): R79.89 - Other specified abnormal findings of blood chemistry Status : Acute (6) Elevated TSH Code(s): R79.89 - Other specified abnormal findings of blood chemistry Status : Acute (7) Acute kidney injury Code(s): N17.9 - Acute kidney failure, unspecified Status: Acute (8) Hyponatremia Code(s): E87.1 - Hypo-osmolality and hyponatremia Status: Acute (9) Hyperglycemia Code(s): R73.9 - Hyperglycemia, unspecified Status: Acute (10) History of chronic lymphocytic leukemia Code(s): Z85.6 - Personal history of leukemia Status: Chronic - Assessment and Plan Plan: Neuro/Psych: Acetaminophen 650 mg p.o. every 6 hours as needed fever Hydrocodone/acetaminophen 5/325 1 tablet every 4 hours. Pain 1 through 5 Morphine sulfate 2 mg IV q. hours. Pain 6 or 10 CV: Three-vessel coronary artery disease Elevated troponin essential hypertension Hyperlipidemia Acute systolic heart failure ejection fraction 20% Cardiac catheterization revealed left main 30%, LAD occluded proximally, left circumflex 80%, RCA 80%. EF 20%. Await CT surgery evaluation EKG admission revealed possible Q waves in inferior leads. Troponin elevated 1. Every 6 hours x2 with EKG. Received aspirin 324 mg p.o. x1 06/07. Creatinine 81 mg daily We will start on beta-abdi, ARB, statin. Patient is on atorvastatin 20 mg daily at home. Resume. Patient is on carvedilol 25 twice daily Patient is on losartan 200 mg daily at home. Will start 25 mg daily in light of acute kidney injury. Increase to 50 mg daily 06/08 Holding hydrochlorothiazide 25 mg daily in light of furosemide use. 2D echocardiogram ordered. BNP is elevated. Continue to follow Lipid panel ordered Resp: Acute respiratory failure Chest x-ray revealed bilateral pulmonary pressures likely flash pulmonary edema. Diuresis with furosemide currently at 40 mg by mouth twice daily Open chest x-ray in 06/09 Wean to nasal cannula as tolerated. Incentive spirometry while awake Albuterol/ipratropium aerosols every 6 hours with albuterol aerosols every 2 hours as needed GI: Cardiac diet Pantoprazole for GI prophylaxis Docusate sodium/senna 1 tablet twice daily for bowel regimen : Straight catheterization as needed Endo: Elevated TSH Hyperglycemia Sliding scale insulin Accu-Cheks to maintain euglycemia aspart insulin low regimen every 6 hours Check hemoglobin A1c Check total T3/T4 Renal: Acute kidney injury Check urine eosinophils, sodium and creatinine. Check renal ultrasound. Monitor urine output Accurate I's and O's Heme: Normocytic anemia CBC will be rechecked 06/09 No indication for transfusion of blood products at this time. ID: Previously treated for right upper respiratory infection/screen acquired with amoxicillin. Received piperacillin/tazobactam in ED. Currently on ceftriaxone and azithromycin Follow-up on blood cultures. Influenza a and B- MSK: PT evaluate and treat FEN: Acute hyponatremia Replace electrolytes as clinically indicated per ICU likely protocol Access -Utilize peripheral IV. Central line if indicated Prophylaxis - -GI famotidine - -DVT SCD/heparin subcu Level to follow-up (4) Hyperlipidemia Qualifiers: Hyperlipidemia type: unspecified Qualified Code(s): E78.5 - Hyperlipidemia, unspecified
[2018-06-08] MEDS: Sod Chloride 0.9% Inj 1,000 ML IV.CONT SCH (15:56)
[2018-06-08 15:57] LABS: Chol/HDL Ratio 2.17 Ratio; Free T4 (Free Thyroxine) 1.34 ng/dL (0.76-1.46); HDL Cholesterol 62.6 mg/dL (40.0-60.0)
[2018-06-08] MEDS ORDERED: Magnesium Sulfate Inj 2 GM in Sodium Chlor 0.9% Inj 96 ML IV.SIG ONE (16:00)
--- NOTE | 2018-06-08 16:14 | P.PNCV ---
- Note Subjective/Hospital Course: Denies chest pain, c/o congestion Objective: Vital Signs - 24 hr 06/07/18 16:15 06/07/18 16:17 06/07/18 16:35 Temperature Pulse Rate 65 66 70 Respiratory Rate 21 21 19 Blood Pressure 100/58 L 100/58 L Pulse Oximetry 97 06/07/18 17:00 06/07/18 18:00 06/07/18 19:00 Temperature Pulse Rate 65 71 68 Respiratory Rate 19 20 20 Blood Pressure 103/55 L 93/55 L 112/57 L Pulse Oximetry 99 95 97 06/07/18 20:00 06/07/18 21:00 06/07/18 21:17 Temperature 98.5 F Pulse Rate 69 64 66 Respiratory Rate 20 19 26 H Blood Pressure 116/60 99/54 L Pulse Oximetry 97 95 97 06/07/18 22:00 06/07/18 23:00 06/07/18 23:18 Temperature Pulse Rate 62 60 72 Respiratory Rate 17 12 20 Blood Pressure 101/56 L 92/52 L 86/56 L Pulse Oximetry 97 95 97 06/07/18 23:21 06/07/18 23:30 06/08/18 00:00 Temperature 98.7 F Pulse Rate 67 60 75 Respiratory Rate 17 12 17 Blood Pressure 101/53 L 99/58 L Pulse Oximetry 96 97 97 06/08/18 00:01 06/08/18 00:30 06/08/18 01:00 Temperature Pulse Rate 73 60 59 L Respiratory Rate 17 16 13 Blood Pressure 93/50 L 96/52 L 75/37 L Pulse Oximetry 97 97 97 06/08/18 01:05 06/08/18 02:00 06/08/18 03:00 Temperature Pulse Rate 75 60 60 Respiratory Rate 20 15 18 Blood Pressure 97/62 L 101/54 L 112/61 Pulse Oximetry 98 95 98 06/08/18 04:00 06/08/18 04:01 06/08/18 05:00 Temperature 98.5 F Pulse Rate 69 70 57 L Respiratory Rate 20 20 13 Blood Pressure 102/72 104/52 L Pulse Oximetry 98 97 96 06/08/18 06:00 06/08/18 07:00 06/08/18 07:01 Temperature Pulse Rate 65 80 81 Respiratory Rate 21 20 20 Blood Pressure 110/56 L 129/65 Pulse Oximetry 98 97 98 06/08/18 07:52 06/08/18 08:00 06/08/18 10:00 Temperature 98.2 F Pulse Rate 68 71 74 Respiratory Rate 32 H 18 Blood Pressure 111/71 Pulse Oximetry 95 94 L 06/08/18 11:03 06/08/18 12:00 06/08/18 14:00 Temperature 98.4 F Pulse Rate 69 64 67 Respiratory Rate 22 17 Blood Pressure 109/59 L Pulse Oximetry 95 06/08/18 14:51 Temperature Pulse Rate 69 Respiratory Rate 24 Blood Pressure Pulse Oximetry Labs: Laboratory Results - last 12 hr 06/08/18 06/08/18 03:00 15:21 WBC Differential . Diff Scan Auto diff confirmed Triglycerides 72 Cholesterol 136 LDL Cholesterol, Calc 59 HDL Cholesterol 62.6 H Cholesterol/HDL Ratio 2.17 Free T4 1.34 Result Diagrams: 06/08/18 03:00 06/08/18 03:00 Imaging: Venous Doppler Study 06/07/18 00:00 CONCLUSION: The study is negative for bilateral lower extremity deep venous thrombosis. Chest X-Ray 06/08/18 03:55 CONCLUSION: Slight improvement in pulmonary edema pattern. Persistent basilar airspace disease with small effusions. Cardiovascular: RRR Pulmonary: few crackles bilaterally GI/: NABS, NT 77y/o female presents with SOB, chest pain and NSTEMI. She has decreased EF at ~ 45% and diastolic failure as well. She was found to have MVCAD and CABG is recommended. She has upper respiratory congestion and resolving pulmonary edema , so I will plan to schedule her procedure early next week. Full consult to follow
[2018-06-08 16:50] LABS: Hemoglobin A1c 5.8 % (4.3-6.0)
[2018-06-08] MEDS: Furosemide 40 MG Tablet PO SCH (18:15)
[2018-06-08] MEDS: Famotidine 20 MG Tablet PO SCH (21:15)
[2018-06-09] MEDS: Metoprolol Inj 5 MG/5 ML Vial IV.PUSH SCH ×2 (01:11→06:14)
[2018-06-09] MEDS: Chlorhexidine Gluconate 2% 1 Pack (2 Cloths) TOPICAL SCH (04:26)
[2018-06-09 04:28] LABS: Hematocrit 32.4 % (35.0-46.0); Mean Corpuscular HGB Conc 33.8 % (32.0-36.0); Mean Corpuscular Hemoglobin 31.5 pg (27.0-34.0); Mean Corpuscular Volume 92.9 fL (80.0-100.0); Mean Platelet Volume 8.3 fL (7.0-11.0); Platelet Count 204 th/mm3 (150-450); Red Blood Count 3.49 mil/mm3 (4.00-5.30); Red Cell Distribution Width 13.6 % (11.6-17.2); White Blood Count 5.7 th/mm3 (4.0-11.0)
[2018-06-09 04:47] LABS: Calcium 8.4 mg/dL (8.5-10.1); Magnesium 2.5 mg/dL (1.5-2.5); Phosphorus 2.9 mg/dL (2.5-4.9); Potassium 3.5 meq/L (3.5-5.1)
[2018-06-09] MEDS ORDERED: Metoprolol Tartrate 25 MG Tablet PO SCH (05:00)
--- NOTE | 2018-06-09 05:22 | XR ---
EXAM DATE: 06/09/2018 4:36 AM EST AGE/SEX: 77 years / Female INDICATIONS: Shortness of breath, possible pulmonary disease. CLINICAL DATA: This is the patient's subsequent encounter. Patient reports that signs and symptoms h ave been present for 3 days and indicates a pain score of Nonresponsive. MEDICAL/SURGICAL HISTORY: Hypertension. Chronic obstructive pulmonary disease. Chronic lympho cytic leukemia. Hyperlipidemia. . Lymph node biopsy. COMPARISON: [facility] – [place], CHEST 1V SINGLE AP, 06/08/2018. . FINDINGS: Basilar airspace disease improved from June 08. No significant pleural effusion. No pneumothorax. Heart size mildly enlarged. CONCLUSION: Basilar airspace disease improved from June 08. No significant effusion. Electronically signed by: Jordan Londono MD 06/09/2018 5:20 AM EST
--- NOTE | 2018-06-09 08:36 | P.PNCA ---
Subjective Interval history: Cough and congestion improving. No CP, dizziness, palpitations, PND. Medications and Allergies Active Medications: Active Medications Acetaminophen (Tylenol) 650 mg PO Q6H PRN PRN Reason: PAIN 1-10 AND/OR FEVER >101F Hydrocodone Bitart/Acetaminophen ([place] 5/325) 1 tab PO Q4H PRN PRN Reason: PAIN SCALE 1 TO 5 Al Hydroxide/Mg Hydroxide (Milk Of Magnesia Liq) 30 ml PO Q12H PRN PRN Reason: Mild Constipation Albuterol (Albuterol Neb (Prn)) 2.5 mg NEB Q2HR NEB PRN PRN Reason: SHORTNESS OF BREATH/WHEEZING Albuterol (Duoneb Neb ([facility])) 1 ampul NEB Q4HR WHILE AWAKE NEB [facility] Last Admin: 06/08/18 19:31 Dose: 1 ampul Aspirin (Aspirin Chew) 81 mg PO DAILY [facility] Last Admin: 06/08/18 08:58 Dose: 81 mg Atorvastatin Calcium (Lipitor) 20 mg PO DAILY [facility] Last Admin: 06/08/18 08:52 Dose: 20 mg Azithromycin (Zithromax) 500 mg PO DAILY [facility] Stop: 06/12/18 08:59 Bisacodyl (Dulcolax Supp) 10 mg RECTAL DAILY PRN PRN Reason: SEVERE CONSITIPATION Carvedilol (Coreg) 25 mg PO BID [facility] Last Admin: 06/08/18 21:14 Dose: 25 mg Chlorhexidine Gluconate (Chlorhexidine 2% Cloth) 3 pack TOPICAL DAILY@0400 PRN PRN Reason: Extra cloth needed Stop: 06/12/18 03:59 Chlorhexidine Gluconate (Chlorhexidine 2% Cloth) 3 pack TOPICAL DAILY@0400 [facility] Stop: 06/12/18 03:59 Last Admin: 06/09/18 04:26 Dose: 3 pack Dextrose (D50w Vial) 50 ml IV.PUSH UNSCH PRN PRN Reason: PER HYPOGLYCEMIA PROTOCOL Diphenhydramine HCl (Benadryl) 50 mg PO OUTSOLE MOLDER [facility] Stop: 06/11/18 08:29 Famotidine (Pepcid) 20 mg PO HS [facility] Last Admin: 06/08/18 21:15 Dose: 20 mg Fentanyl Citrate (Fentanyl Inj) 50 mcg IV.PUSH OUTSOLE MOLDER [facility] Stop: 06/11/18 08:29 Furosemide (Lasix) 40 mg PO BID@0900,1800 [facility] Last Admin: 06/08/18 18:15 Dose: 40 mg Glucagon (Glucagon Inj) 1 mg OTHER PRN PRN PRN Reason: for Hypoglycemia Protocol Heparin Sodium/Dextrose (Heparin/D5w 25,000 U/250 Ml) 25,000 unit in 250 mls @ 0 mls/hr IV.CONT TITRATE PRN; Protocol PRN Reason: Per Protocol Last Admin: 06/07/18 04:36 Dose: 900 units/hr, 9 mls/hr Sodium Chloride (Ns Inj) 1,000 mls @ 30 mls/hr IV.CONT .Q24H [facility] Last Admin: 06/08/18 15:56 Dose: 30 mls/hr Ceftriaxone Sodium 1,000 mg/ (Sodium Chloride) 100 mls @ 200 mls/hr IV.SIG Q24H [facility] Stop: 06/15/18 14:59 Last Infusion: 06/08/18 21:54 Dose: Infused Lactulose (Lactulose Liq) 30 ml PO DAILY PRN PRN Reason: SEVERE CONSITIPATION Losartan Potassium (Cozaar) 50 mg PO DAILY [facility] Last Admin: 06/08/18 09:25 Dose: 50 mg Metoprolol Tartrate (Lopressor Inj) 2.5 mg IV.PUSH Q6H [facility] Last Admin: 06/09/18 06:14 Dose: 2.5 mg Midazolam HCl (Versed Inj) 1 mg IV.PUSH OUTSOLE MOLDER [facility] Stop: 06/11/18 08:29 Morphine Sulfate (Morphine Inj) 2 mg IV.PUSH Q2H PRN PRN Reason: PAIN SCALE 6 TO 10 Ondansetron HCl (Zofran Inj) 4 mg IV.PUSH Q6H PRN PRN Reason: NAUSEA OR VOMITING Last Admin: 06/07/18 08:27 Dose: 4 mg Potassium Chloride (Klor-Con 10) 10 meq PO BID [facility] Last Admin: 06/08/18 21:14 Dose: 10 meq Senna/Docusate Sodium (Chelsey-Colace) 1 tab PO BID [facility] Last Admin: 06/08/18 21:15 Dose: 1 tab Sennosides (Senokot) 17.2 mg PO Q12H PRN PRN Reason: Moderate Constipation Sodium Chloride (Ns Flush) 2 ml IV.FLUSH BID [facility] Last Admin: 06/08/18 21:15 Dose: 2 ml Sodium Chloride (Ns Flush) 2 ml IV.FLUSH PRN PRN PRN Reason: FLUSH AFTER USING IV ACCESS Sodium Chloride (Ns Flush) 2 ml IV.FLUSH BID [facility] Last Admin: 06/08/18 21:15 Dose: 2 ml Sodium Chloride (Ns Flush) 2 ml IV.FLUSH PRN PRN PRN Reason: FLUSH AFTER USING IV ACCESS Allergies Allergy/AdvReac Type Severity Reaction Status Date / Time No Known Allergies Allergy Verified 06/07/18 02:50 Home Medications Medication Instructions Recorded Confirmed Type amoxicillin 875 mg PO BID 06/07/18 06/07/18 History atorvastatin 20 mg PO DAILY 06/07/18 06/07/18 History carvedilol 25 mg PO BID 06/07/18 06/07/18 History hydrochlorothiazide 25 mg PO DAILY 06/07/18 06/07/18 History losartan 100 mg PO DAILY 06/07/18 06/07/18 History Physical Exam Vital signs: Vital Signs 06/08/18 09:00 06/08/18 10:00 06/08/18 11:00 Temperature Pulse Rate 77 78 73 Respiratory Rate 40 H 29 H 33 H Blood Pressure 109/58 L Pulse Oximetry 96 96 94 L 06/08/18 11:03 06/08/18 11:30 06/08/18 12:00 Temperature 98.4 F Pulse Rate 69 71 63 Respiratory Rate 22 31 H 20 Blood Pressure 104/57 L 109/59 L Pulse Oximetry 97 96 06/08/18 13:00 06/08/18 14:00 06/08/18 14:01 Temperature Pulse Rate 62 69 70 Respiratory Rate 25 H 22 30 H Blood Pressure 116/58 L 100/50 L Pulse Oximetry 97 96 95 06/08/18 14:51 06/08/18 15:00 06/08/18 16:00 Temperature 98.3 F Pulse Rate 69 64 64 Respiratory Rate 24 27 H 22 Blood Pressure 91/63 L 101/72 Pulse Oximetry 97 89 L 06/08/18 17:00 06/08/18 17:11 06/08/18 18:00 Temperature Pulse Rate 68 69 74 Respiratory Rate 23 23 28 H Blood Pressure 106/59 L 123/65 Pulse Oximetry 96 95 96 06/08/18 18:36 06/08/18 19:00 06/08/18 19:32 Temperature Pulse Rate 72 69 75 Respiratory Rate 35 H 22 16 Blood Pressure 100/52 L 99/56 L Pulse Oximetry 95 95 95 06/08/18 20:00 06/08/18 21:00 06/08/18 22:00 Temperature 97.8 F Pulse Rate 70 68 73 Respiratory Rate 16 27 H 19 Blood Pressure 110/55 L 121/57 L 109/63 Pulse Oximetry 94 L 94 L 95 06/08/18 23:00 06/09/18 00:00 06/09/18 00:01 Temperature 98.4 F Pulse Rate 69 64 64 Respiratory Rate 24 13 13 Blood Pressure 108/60 76/40 L Pulse Oximetry 93 L 92 L 93 L 06/09/18 00:14 06/09/18 00:39 06/09/18 01:00 Temperature Pulse Rate 67 66 Respiratory Rate 13 14 Blood Pressure 103/53 L Pulse Oximetry 94 L 96 91 L 06/09/18 01:01 06/09/18 01:06 06/09/18 02:00 Temperature Pulse Rate 65 73 61 Respiratory Rate 14 15 13 Blood Pressure 76/39 L 98/55 L 78/43 L Pulse Oximetry 90 L 95 87 L 06/09/18 02:14 06/09/18 03:00 06/09/18 04:00 Temperature Pulse Rate 66 89 68 Respiratory Rate 14 26 H 15 Blood Pressure 107/57 L 98/61 L Pulse Oximetry 91 L 92 L 92 L 06/09/18 04:01 06/09/18 06:00 Temperature 98.6 F Pulse Rate 67 70 Respiratory Rate 15 Blood Pressure 125/64 Pulse Oximetry 91 L Intake & Output 06/08/18 06/09/18 06/09/18 18:59 06:59 18:59 Intake Total 1720 / 1720 920 / 920 Output Total 1350 / 1350 Balance 370 / 370 920 / 920 Weight 72 kg Intake: IV 1000 / 1000 200 / 200 NS Inj 1,000 ML @ 30 mls/hr IV. 1000 / 1000 CONT .Q24H [facility] Rx#:[id number] Magnesium Sulfate Inj 2 GM In 100 / 100 NS Inj 96 ML @ 50 mls/hr IV.SIG ONCE ONE Rx#:[id number] Rocephin Inj 1,000 MG In NS Inj 100 / 100 100 ML @ 200 mls/hr IV.SIG Q24H [facility] Rx#:[id number] Oral 720 / 720 720 / 720 Output: Urine 1350 / 1350 Other: # Voids 4 8 # Bowel Movements 0 - Constitutional no acute distress - Routine Neck Exam Absent: JVD - Routine Respiratory Exam Comments: Minimal rhonchi. - Routine Cardiovascular Exam Present: RRR, S1, S2. Absent: murmur, gallop - Routine Abdominal Exam Present: soft, normoactive bowel sounds. Absent: tenderness, organomegaly - Routine Extremities Exam Absent: cyanosis, clubbing, edema Results 06/09/18 03:50 06/09/18 03:50 Cardiac Enzymes 06/07/18 06/08/18 Range/Units 20:07 03:00 AST 99 H (15-37) U/L Troponin I 24.80 H* D 17.90 H* D (0.02-0.05) ng/mL Lipids 06/08/18 Range/Units 15:21 Triglycerides 72 (42-150) mg/dL Cholesterol 136 (120-200) mg/dL HDL Cholesterol 62.6 H (40.0-60.0) mg/dL Cholesterol/HDL Ratio 2.17 Ratio CBC 06/08/18 06/09/18 Range/Units 03:00 03:50 WBC 8.1 5.7 (4.0-11.0) th/mm3 RBC 3.39 L 3.49 L (4.00-5.30) mil/mm3 Hgb 11.0 L 11.0 L (11.6-15.3) gm/dL Hct 30.6 L 32.4 L (35.0-46.0) % Plt Count 177 204 (150-450) th/mm3 Neut # (Auto) 6.4 (1.8-7.7) th/mm3 Lymph # (Auto) 1.0 (1.0-4.8) th/mm3 [place] # (Auto) 0.6 (0.0-0.9) th/mm3 Eos # (Auto) 0.0 (0.0-0.4) th/mm3 Baso # (Auto) 0.0 (0.0-0.2) th/mm3 Comprehensive Metabolic Panel 06/08/18 06/09/18 Range/Units 03:00 03:50 Sodium 131 L 133 L (136-145) meq/L Potassium 3.7 3.5 (3.5-5.1) meq/L Chloride 95 L 96 L (98-107) meq/L Carbon Dioxide 29.5 27.0 (21.0-32.0) meq/L BUN 18 20 H (7-18) mg/dL Creatinine 0.96 0.93 (0.50-1.00) mg/dL Calcium 7.9 L 8.4 L (8.5-10.1) mg/dL AST 99 H (15-37) U/L ALT 43 (10-53) U/L Alkaline Phosphatase 40 L (45-117) U/L Total Protein 7.0 (6.4-8.2) g/dL Albumin 3.4 (3.4-5.0) g/dL Intake and Output 06/08/18 06/09/18 06/09/18 22:59 06:59 14:59 Intake Total 1920 / 1920 720 / 720 Output Total 1350 / 1350 Balance 570 / 570 720 / 720 Intake: IV 1200 / 1200 NS Inj 1,000 ML @ 30 mls/hr IV. 1000 / 1000 CONT .Q24H [facility] Rx#:[id number] Magnesium Sulfate Inj 2 GM In 100 / 100 NS Inj 96 ML @ 50 mls/hr IV.SIG ONCE ONE Rx#:[id number] Rocephin Inj 1,000 MG In NS Inj 100 / 100 100 ML @ 200 mls/hr IV.SIG Q24H [facility] Rx#:[id number] Oral 720 / 720 720 / 720 Output: Urine 1350 / 1350 Other: # Voids 4 8 # Bowel Movements 0 Weight 72 kg - Imaging and Cardiology Imaging: Impressions Venous Doppler Study 06/07/18 00:00 CONCLUSION: The study is negative for bilateral lower extremity deep venous thrombosis. Chest X-Ray 06/08/18 03:55 CONCLUSION: Slight improvement in pulmonary edema pattern. Persistent basilar airspace disease with small effusions. Chest X-Ray 06/09/18 06:00 CONCLUSION: Basilar airspace disease improved from June 08. No significant effusion. Assessment and Plan - Assessment (1) Coronary artery disease Code(s): I25.10 - Atherosclerotic heart disease of [place] coronary artery without angina pectoris Status: Chronic Plan: Status post NSTEMI. Stable overnight except mild transient hypotension, unclear etiology. No further angina. Cath shows severe multivessel CAD. Echo reviewed. Suspect EF is around 30%. REC await CABG, continue current medical regimen except reduce carvedilol dosing , will f/u PRN (2) Ischemic cardiomyopathy Code(s): I25.5 - Ischemic cardiomyopathy Status: Chronic Plan: Continues to improve s/p good diuresis since admission. EF seems 20-25% by cath , reported 35-40% by echo. Echo reviewed. Suspect EF closer to ~30%. Continue beta abdi, ARB, oral furosemide. (3) Essential hypertension Code(s): I10 - Essential (primary) hypertension Status: Chronic Plan: Stable. Mostly normotensive. Transient hypotension early this morning, now resolved. - Plan Code Status: full Discussed Condition With: patient (1) Coronary artery disease Qualifiers: Coronary Disease-Associated Artery/Lesion type: [place] artery [place] vs. transplanted heart: [place] heart Associated angina: with unstable angina Qualified Code(s): I25.110 - Atherosclerotic heart disease of [place] coronary artery with unstable angina pectoris
[2018-06-09] MEDS: Azithromycin 250 MG Tablet PO SCH (09:02)
[2018-06-09] MEDS: Senna/Docusate Sodium 8.6/50 MG Tablet PO SCH ×2 (09:02→20:41)
[2018-06-09] MEDS: Carvedilol 12.5 MG Tablet PO SCH ×2 (09:02→20:41)
[2018-06-09] MEDS: Furosemide 40 MG Tablet PO SCH ×2 (09:02→17:28)
--- NOTE | 2018-06-09 10:23 | P.PNCC ---
Subjective Subjective Remarks/Hospital Course: This is a 77-year-old female. Date of admission 06/07/2018. Past medical history includes hypertension, hyperlipidemia and CLL diagnosed in 2005. Patient presents to [facility] originally from [place] with a one-week history of progressive shortness of breath. Recently, patient was started on amoxicillin for suspected upper year respiratory tract infection. This morning approximately 2 AM, EMS was called due to acute tachypnea. When EMS arrived saturations were in the 70s. She was unable to speak complete status post able to nod her head to questions per report. Denies chest pain. Denies abdominal pain Of note patient recently traveled from [place] via car approximately week ago. In the ED, patient was noted to have a chest x-ray revealing likely flash pulmonary edema. Patient received 40 mg IV furosemide. EKG revealed Q waves in inferior leads. BNP was elevated. Creatinine was slightly elevated 1.[address] Zuleta was called and will be consulted. Patient was placed on BiPAP and was transferred to the main campus for further evaluation treatment. At the present time, patient is currently less tachypneic. Requesting for BiPAP removed. Again denies chest pain, abdominal pain, edema in the lower extremities. Hemodynamically stable. 06/08: Resting comfortably in bed. Remains on 2 L nasal cannula. Clinically of chest congestion. Started on ceftriaxone and azithromycin. There is significant three-vessel coronary disease. Considering CABG. Subjective 06/09: Currently on room air. Planes of chest congestion and sore throat. The #2 of ceftriaxone and azithromycin. We discussed with CT surgery regarding CABG. Hypotension overnight noted decreased carvedilol from 25-12.5 mg twice daily Objective Vital Signs / I&O: Vital Signs 06/08/18 11:00 06/08/18 11:03 06/08/18 11:30 Temperature Pulse Rate 73 69 71 Respiratory Rate 33 H 22 31 H Blood Pressure 104/57 L Pulse Oximetry 94 L 97 06/08/18 12:00 06/08/18 13:00 06/08/18 14:00 Temperature 98.4 F Pulse Rate 63 62 69 Respiratory Rate 20 25 H 22 Blood Pressure 109/59 L 116/58 L Pulse Oximetry 96 97 96 06/08/18 14:01 06/08/18 14:51 06/08/18 15:00 Temperature Pulse Rate 70 69 64 Respiratory Rate 30 H 24 27 H Blood Pressure 100/50 L 91/63 L Pulse Oximetry 95 97 06/08/18 16:00 06/08/18 17:00 06/08/18 17:11 Temperature 98.3 F Pulse Rate 64 68 69 Respiratory Rate 22 23 23 Blood Pressure 101/72 106/59 L Pulse Oximetry 89 L 96 95 06/08/18 18:00 06/08/18 18:36 06/08/18 19:00 Temperature Pulse Rate 74 72 69 Respiratory Rate 28 H 35 H 22 Blood Pressure 123/65 100/52 L 99/56 L Pulse Oximetry 96 95 95 06/08/18 19:32 06/08/18 20:00 06/08/18 21:00 Temperature 97.8 F Pulse Rate 75 70 68 Respiratory Rate 16 16 27 H Blood Pressure 110/55 L 121/57 L Pulse Oximetry 95 94 L 94 L 06/08/18 22:00 06/08/18 23:00 06/09/18 00:00 Temperature 98.4 F Pulse Rate 73 69 64 Respiratory Rate 19 24 13 Blood Pressure 109/63 108/60 Pulse Oximetry 95 93 L 92 L 06/09/18 00:01 06/09/18 00:14 06/09/18 00:39 Temperature Pulse Rate 64 67 Respiratory Rate 13 13 Blood Pressure 76/40 L 103/53 L Pulse Oximetry 93 L 94 L 96 06/09/18 01:00 06/09/18 01:01 06/09/18 01:06 Temperature Pulse Rate 66 65 73 Respiratory Rate 14 14 15 Blood Pressure 76/39 L 98/55 L Pulse Oximetry 91 L 90 L 95 06/09/18 02:00 06/09/18 02:14 06/09/18 03:00 Temperature Pulse Rate 61 66 89 Respiratory Rate 13 14 26 H Blood Pressure 78/43 L 107/57 L 98/61 L Pulse Oximetry 87 L 91 L 92 L 06/09/18 04:00 06/09/18 04:01 06/09/18 06:00 Temperature 98.6 F Pulse Rate 68 67 70 Respiratory Rate 15 15 Blood Pressure 125/64 Pulse Oximetry 92 L 91 L 06/09/18 08:34 06/09/18 08:35 Temperature Pulse Rate 75 Respiratory Rate 20 Blood Pressure Pulse Oximetry 96 Intake & Output 06/08/18 06/09/18 06/09/18 18:59 06:59 18:59 Intake Total 1720 / 1720 920 / 920 Output Total 1350 / 1350 Balance 370 / 370 920 / 920 Weight 72 kg Intake: IV 1000 / 1000 200 / 200 NS Inj 1,000 ML @ 30 mls/hr IV. 1000 / 1000 CONT .Q24H [facility] Rx#:[id number] Magnesium Sulfate Inj 2 GM In 100 / 100 NS Inj 96 ML @ 50 mls/hr IV.SIG ONCE ONE Rx#:[id number] Rocephin Inj 1,000 MG In NS Inj 100 / 100 100 ML @ 200 mls/hr IV.SIG Q24H [facility] Rx#:[id number] Oral 720 / 720 720 / 720 Output: Urine 1350 / 1350 Other: # Voids 4 8 # Bowel Movements 0 Result Diagrams: 06/09/18 03:50 06/09/18 03:50 Other Results: Microbiology 06/07/18 03:05 Blood - Peripheral Aerobic Blood Culture - Preliminary No growth in 1 day 06/07/18 03:05 Blood - Peripheral Anaerobic Blood Culture - Preliminary No growth in 1 day 06/07/18 03:15 Blood - Peripheral Aerobic Blood Culture - Preliminary No growth in 1 day 06/07/18 03:15 Blood - Peripheral Anaerobic Blood Culture - Preliminary No growth in 1 day 06/07/18 04:51 Nasal Wash Influenza Types A,B Antigen - Final Negative for FLU A and B antigen Infection due to influenza A or B cannot be ruled out since the antigen present in the sample may be below the detection limit of the test. Imaging: Venous Doppler Study 06/07/18 00:00 CONCLUSION: The study is negative for bilateral lower extremity deep venous thrombosis. Chest X-Ray 06/07/18 02:51 CONCLUSION: Mild edema pattern versus interstitial infiltrate. Trace pleural fluid. Heart size within normal limits. Chest X-Ray 06/08/18 03:55 CONCLUSION: Slight improvement in pulmonary edema pattern. Persistent basilar airspace disease with small effusions. Chest X-Ray 06/09/18 06:00 CONCLUSION: Basilar airspace disease improved from June 08. No significant effusion. Objective Remarks: GENERAL: This is a 77-year-old female resting in bed in no acute distress SKIN: Warm and dry. HEAD: Atraumatic. Normocephalic. EYES: Pupils equal and round. No scleral icterus. No injection or drainage. ENT: No nasal bleeding or discharge. Mucous membranes pink and moist. NECK: Trachea midline. No JVD. CARDIOVASCULAR: Regular rate and rhythm. S1, S2 no S4. RESPIRATORY: No accessory muscle use. Few crackles present bilateral. No wheezing. GASTROINTESTINAL: Abdomen soft, non-tender, nondistended. Hepatic and splenic margins not palpable. MUSCULOSKELETAL: Extremities without clubbing, cyanosis, or edema. No obvious deformities. NEUROLOGICAL: Awake and alert. No obvious cranial nerve deficits. Motor grossly within normal limits. Five out of 5 muscle strength in the arms and legs. Normal speech. PSYCHIATRIC: Appropriate mood and affect; insight and judgment normal. Assessment and Plan - Problem List (1) Elevated troponin Code(s): R74.8 - Abnormal levels of other serum enzymes Status: Acute (2) Acute respiratory failure Code(s): J96.00 - Acute respiratory failure, unspecified whether with hypoxia or hypercapnia Status: Acute (3) Essential hypertension Code(s): I10 - Essential (primary) hypertension Status: Chronic (4) Hyperlipidemia Code(s): E78.5 - Hyperlipidemia, unspecified Status: Chronic (5) Elevated brain natriuretic peptide (BNP) level Code(s): R79.89 - Other specified abnormal findings of blood chemistry Status : Acute (6) Elevated TSH Code(s): R79.89 - Other specified abnormal findings of blood chemistry Status : Acute (7) Acute kidney injury Code(s): N17.9 - Acute kidney failure, unspecified Status: Acute (8) Hyponatremia Code(s): E87.1 - Hypo-osmolality and hyponatremia Status: Acute (9) Hyperglycemia Code(s): R73.9 - Hyperglycemia, unspecified Status: Acute (10) History of chronic lymphocytic leukemia Code(s): Z85.6 - Personal history of leukemia Status: Chronic - Assessment and Plan Plan: Neuro/Psych: Acetaminophen 650 mg p.o. every 6 hours as needed fever Hydrocodone/acetaminophen 5/325 1 tablet every 4 hours. Pain 1 through 5 Morphine sulfate 2 mg IV q. hours. Pain 6 - 10 CV: Three-vessel coronary artery disease Elevated troponin essential hypertension Hyperlipidemia Acute systolic heart failure ejection fraction 20% Cardiac catheterization revealed left main 30%, LAD occluded proximally, left circumflex 80%, RCA 80%. EF 20%. Await CT surgery evaluation EKG admission revealed possible Q waves in inferior leads. Troponin elevated 1. Every 6 hours x2 with EKG. Received aspirin 324 mg p.o. x1 06/07. Currently on 81 mg daily Patient is on atorvastatin 20 mg daily at home. Resume. Patient is on carvedilol 25 twice daily. Decrease to 12.5 mg daily on 06/09 Patient is on losartan 200 mg daily at home. Will start 25 mg daily in light of acute kidney injury. Increase to 50 mg daily 06/08 Holding hydrochlorothiazide 25 mg daily in light of furosemide use. 2D echocardiogram- left ventricular systolic function is mildly reduced with an estimated ejection fraction of 40- 45%. There is global hypokinesis with distinct regional wall motion abnormalities. There is akinesis of the apex, mid to apical lateral wall, apical posterolateral wall. and anteroapical wall. The left atrial size is upper limits of normal. Mild mitral valve regurgitation. Aortic valve sclerosis is present. The estimated pulmonary arterial pressure is 30mmHg BNP is elevated. Continue to follow Resp: Acute respiratory failure Chest x-ray revealed bilateral pulmonary pressures likely flash pulmonary edema. Diuresis with furosemide currently at 40 mg by mouth twice daily Open chest x-ray in 06/10 Wean to nasal cannula as tolerated. Incentive spirometry while awake Albuterol/ipratropium aerosols every 6 hours with albuterol aerosols every 2 hours as needed GI: Cardiac diet Pantoprazole for GI prophylaxis Docusate sodium/senna 1 tablet twice daily for bowel regimen : Straight catheterization as needed Endo: Elevated TSH Hyperglycemia Sliding scale insulin Accu-Cheks to maintain euglycemia aspart insulin low regimen every 6 hours Check total T3/T4 -normal. Recheck 4-6 weeks Renal: Acute kidney injury Monitor urine output Accurate I's and O's Heme: Normocytic anemia CBC will be rechecked 06/09 No indication for transfusion of blood products at this time. ID: Previously treated for right upper respiratory infection/screen acquired with amoxicillin. Received piperacillin/tazobactam in ED. Currently on ceftriaxone and azithromycin Follow-up on blood cultures. Influenza a and B- MSK: PT evaluate and treat FEN: Acute hyponatremia Replace electrolytes as clinically indicated per ICU electrolyte protocol Access -Utilize peripheral IV. Central line if indicated Prophylaxis - -GI famotidine - -DVT SCD/heparin subcu Level 2 follow-up Stable from critical care medicine standpoint. Assign care to hospitalist in a.m. 06/10. [facility]. (4) Hyperlipidemia Qualifiers: Hyperlipidemia type: unspecified Qualified Code(s): E78.5 - Hyperlipidemia, unspecified
[2018-06-09] MEDS: Sod Chloride 0.9% Inj 1,000 ML IV.CONT SCH (16:14)
[2018-06-09] MEDS ORDERED: Dextrose 50% in Water 50 ML Vial IV.PUSH PRN (18:12)
[2018-06-09] MEDS ORDERED: Insulin Regular (For Infusion) 100 UNIT in Sodium Chlor 0.9% Inj 99 ML IV.CONT PRN (18:12)
[2018-06-09] MEDS ORDERED: Sodium Chloride 0.9% Irr Bot 500 ML, ceFAZolin Inj 500 MG IRRIGATION SCH ×2 (18:15)
[2018-06-09] MEDS ORDERED: Chlorhexidine 4% Topical 120 APPLIC/120 ML Bottle TOPICAL SCH (18:15)
[2018-06-09] MEDS ORDERED: Sodium Chlor 0.9% Inj 77.5 ML, Papaverine Inj 60 MG, Nitroglycerin Inj 100 MCG, dilTIAZ... IRRIGATION SCH ×3 (18:15)
[2018-06-09] MEDS ORDERED: ceFAZolin Inj 2,000 MG in Sodium Chlor 0.9% Inj 80 ML IV.SIG SCH (19:00)
--- NOTE | 2018-06-09 19:28 | MB ---
cc: Irma Perezivy Hoyt APRN DATE: 06/09/2018 HISTORY OF PRESENT ILLNESS: This is a 77-year-old female visiting from [place], [place], here on vacation visiting her [id number]. Apparently presented to the emergency department with severe shortness of breath, acute tachypnea. O2 saturations were in the 70s. She was recently treated for an upper respiratory infection with amoxicillin. She required BiPAP therapy. Her influenza A and B were negative. She has also had negative blood cultures. Her chest x-ray showed flash pulmonary edema. She was given IV Lasix and [facility] [place] [facility] and placed on BiPAP therapy as above. She was found to have acute kidney injury, hyponatremia. She also had some mildly elevated troponins and was ruled in for a non-STEMI, underwent heart catheterization by Dr. Henry Ashley which showed ejection fraction of 20%, severely reduced LV systolic function, severe 3-vessel disease. She had the LAD proximally 90% stenosed, proximal portion of the obtuse marginal was 80%. The left circumflex was 50%, the RCA 80%. We were consulted to evaluate for coronary artery bypass grafting. PAST MEDICAL HISTORY: Includes chronic lymphocytic leukemia, diagnosed in 2005. She never required any chemo or treatment. They just monitored her blood counts. Other history includes essential hypertension, hyperlipidemia. PAST SURGICAL HISTORY: Include lymph node biopsy, left fibular fracture, left tibia fracture repair. ALLERGIES: SHE HAS NO KNOWN ALLERGIES. HOME MEDICATIONS: 1. Recent amoxicillin. 2. Coreg 25 b.i.d. 3. Hydrochlorothiazide 25. 4. Losartan 100 daily. 5. Atorvastatin 20 daily. FAMILY HISTORY: Noncontributory. SOCIAL HISTORY: The patient is , no tobacco, no alcohol. Lives with her . REVIEW OF SYSTEMS: As above in the HPI. The 12 systems unremarkable. PHYSICAL EXAMINATION: VITAL SIGNS: Blood pressure 104/60, heart rate of 75, temperature T-max 98.6. GENERAL: The patient is awake, alert, in no acute distress. HEENT: Head is normocephalic, atraumatic. Pupils equal and reactive. Oral mucosa pink, moist. NECK: Supple. No JVD. HEART: Sounds S1, S2. Regular rate and rhythm. No audible rubs, murmurs, or gallops. LUNGS: She is diminished in the bases with a few basilar crackles. No expiratory wheeze. ABDOMEN: Soft, nontender. No masses or organomegaly. EXTREMITIES: No cyanosis, clubbing, or edema. LABORATORY DATA: Hemoglobin 11, hematocrit 32, white cell count of 5.7, platelet count of 204. INR 1.0. Sodium 133, potassium 3.5, BUN of 20, creatinine 0.93. BNP was 1600. Her troponin peaked at 17. RADIOLOGICAL EXAMS: Her chest x-ray this morning showed improved airspace disease. IMPRESSION: 1. This is a 77-year-old patient with multivessel coronary disease status post acute respiratory failure, improved. Also now being treated for possible bronchitis with Rocephin and Zithromax. Continue nebulizer treatment. 2. Essential hypertension. 3. Hyperlipidemia. 4. Acute kidney injury. Indices improved again. 5. Multivessel disease. Cardiac films have been evaluated by Dr. Constance Salamanca. Plan for coronary artery bypass grafting. We will allow her to recover from her recent respiratory failure. Planning will be for 06/15/2018 for bypass surgery. The patient is agreeable to proceed. STS data will be documented in the electronic record. NIYAH Fabian MD JRT/ct , 06:25 PM , 06:34 PM
--- NOTE | 2018-06-09 19:52 | US ---
EXAM DATE: 06/09/2018 7:35 PM EST AGE/SEX: 77 years / Female INDICATIONS: PreOp cardiac surgery. CLINICAL DATA: This is the patient's initial encounter. Patient reports that signs and symptoms have been present for 1 day and indicates a pain score of 0/10. MEDICAL/SURGICAL HISTORY: . Hypertension. Chronic lymphocytic leukemia. Hyperlipidemia. Left Ti diana/Fibula fracture. . Lymph node biopsy. COMPARISON: [facility] – [place], [place] VENOUS DOPPLER LEG BI, 06/07/2018. . MEASUREMENTS: RIGHT THIGH: Proximal:__6 mm Mid:__ 3 mm Distal:__2 mm LEFT THIGH: Proximal:__8 mm Mid:__4 mm Distal:__2 mm RIGHT CALF: Proximal:__2 mm Mid:__2 mm Distal:__2 mm LEFT CALF: Proximal:__2 mm Mid:__2 mm Distal:__2 mm FINDINGS: The venous system of the lower extremities are patent by color Doppler imaging. Measurements of the leg veins (in mm) are listed above. CONCLUSION: 1. Venous mapping study as described. Electronically signed by: Dirk Saba MD 06/09/2018 7:51 PM EST
[2018-06-09] MEDS ORDERED: ceFAZolin 2 GM Premix Inj 2 GM/50 ML PIGGYBACK IV.SIG SCH (20:00)
--- NOTE | 2018-06-09 20:01 | US ---
EXAM DATE: 06/09/2018 7:34 PM EST AGE/SEX: 77 years / Female INDICATIONS: PreOp cardiac surgery. CLINICAL DATA: This is the patient's initial encounter. Patient reports that signs and symptoms have been present for 1 day and indicates a pain score of 0/10. MEDICAL/SURGICAL HISTORY: . Hypertension. Chronic lymphocytic leukemia. Hyperlipidemia. Left Ti diana/Fibula fracture. . Lymph node biopsy. COMPARISON: . [facility] PARAMETERS: ICA/CCA Ratio: Right 0.8 , Left 0.9 ICA: Right 80.2 cm/sec, Left 79 cm/sec CCA: Right 99.6 cm/sec, Left 85.3 cm/sec ECA: Right 75 cm/sec, Left 86.6 cm/sec Vertebral: Right 40 cm/sec antegrade, Left 42.7 cm/sec antegrade FINDINGS: Right Carotid: No significant plaque is visualized.The waveforms are within normal limits. Left Carotid: No significant plaque is visualized. The waveforms are within normal limits. Other: None. CONCLUSION: 1. Right Internal Carotid Artery: Minimal plaque without stenosis. 2. Left Internal Carotid Artery: Minimal plaque without stenosis. Electronically signed by: Jordan Londono MD 06/09/2018 7:59 PM EST
--- NOTE | 2018-06-09 20:16 | XR ---
EXAM DATE: 06/09/2018 8:12 PM EST AGE/SEX: 77 years / Female INDICATIONS: Evaluate for pneumonia, pneumothorax, or communicable disease. CLINICAL DATA: This is the patient's initial encounter. Patient reports that signs and symptoms have been present for 1 day and indicates a pain score of 0/10. MEDICAL/SURGICAL HISTORY: Hypertension. None. [place] [facility] [place] . FINDINGS: PA and lateral views of the chest were obtained and demonstrate mild streaky opacity at the lung base s with no focal consolidation. There is blunting of the posterior costophrenic angles. The heart size is at the upper limits of normal. There is no perihilar edema. The bony thorax remains intact with m ultiple surgical clips project over the right lung apex. CONCLUSION: 1. Mild streaky opacity remains at the lung bases with no focal consolidation. 2. Blunting of both posterior costophrenic angles most characteristic of small effusions. Electronically signed by: Dirk Saba MD 06/09/2018 8:15 PM EST
[2018-06-09] MEDS: Heparin - SQ 10,000 UNITS/ML Vial SQ SCH (20:40)
[2018-06-09] MEDS: Famotidine 20 MG Tablet PO SCH (20:41)
[2018-06-10 04:25] LABS: Bilirubin,Urine Negative (Negative); Clarity,Urine Clear (Clear); Color,Urine Yellow (Yellw/Straw); Glucose,Urine (UA) Negative (Negative); Leukocyte Esterase,Urine Negative (Negative); Mucus,Urine Few /lpf (Occasional); Nitrite,Urine Negative (Negative); Squamous Epithelial Cell,Urine <1 /hpf (0-5)
[2018-06-10 06:19] LABS: Baso % (Auto) 0.9 % (0.0-2.0); Eos # (Auto) 0.1 th/mm3 (0.0-0.4); Hematocrit 31.1 % (35.0-46.0); Hemoglobin 10.8 gm/dL (11.6-15.3); Lymph # (Auto) 0.9 th/mm3 (1.0-4.8); Mean Corpuscular HGB Conc 34.8 % (32.0-36.0); Mean Corpuscular Hemoglobin 31.6 pg (27.0-34.0); Mean Corpuscular Volume 90.8 fL (80.0-100.0); Mono # (Auto) 0.5 th/mm3 (0.0-0.9); Neut # (Auto) 2.7 th/mm3 (1.8-7.7); Neut % (Auto) 64.1 % (16.0-70.0); Platelet Count 223 th/mm3 (150-450); Red Blood Count 3.42 mil/mm3 (4.00-5.30); Red Cell Distribution Width 13.6 % (11.6-17.2); White Blood Count 4.3 th/mm3 (4.0-11.0)
--- NOTE | 2018-06-10 06:25 | XR ---
EXAM DATE: 06/10/2018 5:50 AM EST AGE/SEX: 77 years / Female INDICATIONS: Respiratory failure. CLINICAL DATA: This is the patient's subsequent encounter. Patient reports that signs and symptoms h ave been present for 3 days and indicates a pain score of Nonresponsive. MEDICAL/SURGICAL HISTORY: Hypertension. Non-responsive. COMPAR[place] [facility] [place]ST 1V SINGLE AP, 06/09/2018. . FINDINGS: Portable AP view of the chest demonstrates a normal size cardiac silhouette. EKG lines overlie the pa tient. There is a minimal streaky opacity at both lung bases. No pleural effusion or pneumothorax is identified. Bones and soft tissues demonstrate no acute abnormality. CONCLUSION: Minimal streaky opacities at the lung bases which may represent atelectasis or mild consolidation. No significant change since yesterday's examination. Electronically signed by: Babatunde Tamez MD 06/10/2018 6:23 AM EST
[2018-06-10 06:45] LABS: Calcium 8.5 mg/dL (8.5-10.1); Carbon Dioxide 27.8 meq/L (21.0-32.0); Magnesium 2.2 mg/dL (1.5-2.5); Phosphorus 3.5 mg/dL (2.5-4.9); Potassium 3.5 meq/L (3.5-5.1)
[2018-06-10] MEDS: Chlorhexidine Gluconate 2% 1 Pack (2 Cloths) TOPICAL SCH (07:55)
[2018-06-10] MEDS: Heparin - SQ 10,000 UNITS/ML Vial SQ SCH ×2 (08:31→21:44)
[2018-06-10] MEDS: Azithromycin 250 MG Tablet PO SCH (08:31)
[2018-06-10] MEDS: Carvedilol 12.5 MG Tablet PO SCH ×2 (08:31→21:44)
[2018-06-10] MEDS: Furosemide 40 MG Tablet PO SCH ×2 (08:31→17:11)
[2018-06-10] MEDS: Senna/Docusate Sodium 8.6/50 MG Tablet PO SCH ×2 (08:31→21:45)
--- NOTE | 2018-06-10 12:10 | P.PN ---
Subjective Interval history: Follow-up for non-STEMI, severe multivessel coronary artery disease. Patient is currently doing well. Denies any chest pain, shortness of breath, fever or chills. She is waiting for CABG sometime next week. Physical Exam Vital signs: Vital Signs 06/09/18 12:00 06/09/18 12:26 06/09/18 14:00 Temperature 98.4 F Pulse Rate 71 72 80 Respiratory Rate 34 H 20 Blood Pressure 106/57 L Pulse Oximetry 91 L 06/09/18 15:52 06/09/18 16:00 06/09/18 18:00 Temperature 98.6 F Pulse Rate 78 75 76 Respiratory Rate 24 16 Blood Pressure 104/56 L Pulse Oximetry 95 06/09/18 20:00 06/09/18 20:37 06/10/18 00:00 Temperature 98.7 F 98.5 F Pulse Rate 82 80 68 Respiratory Rate 20 22 16 Blood Pressure 144/77 H 128/69 Pulse Oximetry 95 93 L 06/10/18 04:00 06/10/18 08:00 06/10/18 08:13 Temperature 98.0 F 98.0 F Pulse Rate 69 65 66 Respiratory Rate 16 15 20 Blood Pressure 127/69 120/66 Pulse Oximetry 94 L 97 06/10/18 11:03 Temperature Pulse Rate 71 Respiratory Rate 22 Blood Pressure Pulse Oximetry Intake & Output 06/09/18 06/10/18 06/10/18 18:59 06:59 18:59 Intake Total 1900 / 1900 480 / 480 240 / 240 Balance 1900 / 1900 480 / 480 240 / 240 Weight 71.5 kg Intake: IV 1100 / 1100 NS Inj 1,000 ML @ 30 mls/hr IV. 1000 / 1000 CONT .Q24H MARCI Rx#:[id number] Rocephin Inj 1,000 MG In NS Inj 100 / 100 100 ML @ 200 mls/hr IV.SIG Q24H [facility] Rx#:[id number] Oral 800 / 800 480 / 480 240 / 240 Other: # Voids 6 3 2 Date of Last Bowel Movement 06/10/18 # Bowel Movements 0 0 1 Narrative: GENERAL: Alert, oriented x3, NAD. SKIN: Warm and dry. HEAD: Normocephalic. EYES: No scleral icterus. No injection or drainage. NECK: Supple, trachea midline. No JVD or lymphadenopathy. CARDIOVASCULAR: Regular rate and rhythm without murmurs, gallops, or rubs. RESPIRATORY: Breath sounds equal bilaterally. No accessory muscle use. GASTROINTESTINAL: Abdomen soft, non-tender, nondistended. MUSCULOSKELETAL: No cyanosis, or edema. BACK: Nontender without obvious deformity. No CVA tenderness. Results - Labs CBC & Chem 7: 06/10/18 05:46 06/10/18 05:46 Laboratory Results - last 24 hr 06/10/18 06/10/18 06/10/18 03:55 05:46 05:46 WBC 4.3 RBC 3.42 L Hgb 10.8 L Hct 31.1 L MCV 90.8 MCH 31.6 MCHC 34.8 RDW 13.6 Plt Count 223 MPV 8.0 Neut % (Auto) 64.1 Lymph % (Auto) 21.0 [place] % (Auto) 12.0 H Eos % (Auto) 2.0 Baso % (Auto) 0.9 Neut # (Auto) 2.7 Lymph # (Auto) 0.9 L [place] # (Auto) 0.5 Eos # (Auto) 0.1 Baso # (Auto) 0.0 WBC Differential . Differential Comment Auto diff final Sodium 132 L Potassium 3.5 Chloride 97 L Carbon Dioxide 27.8 Anion Gap 7 BUN 16 Creatinine 0.88 Estimated GFR 63 L Random Glucose 102 Calcium 8.5 Phosphorus 3.5 Magnesium 2.2 Urine Color Yellow Urine Clarity Clear Urine pH 6.0 Ur Specific [place] 1.010 Urine Protein Negative Urine Glucose (UA) Negative Urine Ketones Negative Urine Occult Blood Negative Urine Nitrate Negative Urine Bilirubin Negative Urine Urobilinogen Less than 2 Ur Leukocyte Esterase Negative Urine RBC Less than 1 Urine WBC Less than 1 Ur Squamous Epith Cells <1 Urine Mucus Few H Micro UA Comment Culture not ind Ur Microscopic Review Not Reportable Urine Culture Comments Culture not ind Microbiology 06/07/18 03:05 Blood - Peripheral Aerobic Blood Culture - Preliminary No growth in 3 days 06/07/18 03:05 Blood - Peripheral Anaerobic Blood Culture - Preliminary No growth in 3 days 06/07/18 03:15 Blood - Peripheral Aerobic Blood Culture - Preliminary No growth in 3 days 06/07/18 03:15 Blood - Peripheral Anaerobic Blood Culture - Preliminary No growth in 3 days - Imaging Impressions Carotid Doppler Study 06/09/18 18:12 CONCLUSION: 1. Right Internal Carotid Artery: Minimal plaque without stenosis. 2. Left Internal Carotid Artery: Minimal plaque without stenosis. Chest X-Ray 06/09/18 18:12 CONCLUSION: 1. Mild streaky opacity remains at the lung bases with no focal consolidation. 2. Blunting of both posterior costophrenic angles most characteristic of small effusions. Lower Extremity Ultrasound 06/09/18 18:12 CONCLUSION: 1. Venous mapping study as described. Chest X-Ray 06/10/18 06:00 CONCLUSION: Minimal streaky opacities at the lung bases which may represent atelectasis or mild consolidation. No significant change since yesterday's examination. - Procedures Cardiac catheterization 06/07/2018 1. Severe 3-vessel coronary artery disease. 2. Left dominant system. 3. Severely reduced left ventricular systolic function with ejection fraction estimated at 20%. Echo 05/07/2018 Normal left ventricular size. Wall thickness is normal. The left ventricular systolic function is mildly reduced with an estimated ejection fraction of 40- 45%. There is global hypokinesis with distinct regional wall motion abnormalities. There is akinesis of the apex, mid to apical lateral wall, apical posterolateral wall. and anteroapical wall. The left atrial size is upper limits of normal. Mild mitral valve regurgitation. Aortic valve sclerosis is present. The estimated pulmonary arterial pressure is 30mmHg Assessment and Plan - Plan Ms. Perez is a pleasant 77-year-old female with history of hypertension, hyperlipidemia, CLL who presented to the emergency department on 06/07/2018 due to shortness of breath. She was noted to have flash pulmonary edema. Patient was managed in the ICU and received IV furosemide. EKG revealed Q waves in the inferior leads. Troponin was elevated to 1.08, 24.8, 17.9. And underwent cardiac catheterization which revealed severe multivessel coronary artery disease. Cardiothoracic surgery was consulted. Non-ST elevation myocardial infarction Flash pulmonary edema Multivessel coronary artery disease It is currently on room air. Cardiothoracic surgery evaluated patient with regards to multivessel coronary artery disease. CABG is planned for next week. Continue aspirin 81 mg, atorvastatin 20 mg, carvedilol 12.5 mg twice daily Continue losartan 50 mg daily Continue furosemide 40 mg p.o. twice daily Possible pneumonia Patient is currently on ceftriaxone and azithromycin. We will continue antibiotics for 1-2 more days. Seasonal allergy/sinus congestion We will start fluticasone Transfer patient to the floor -probably C PCU. Full code. Heparin SQ
--- NOTE | 2018-06-10 13:46 | P.PNCV ---
- Note Subjective/Hospital Course: 77-year-old female visiting from [place], [place], here on vacation visiting her [id number]. Apparently presented to the emergency department with severe shortness of breath, acute tachypnea. O2 saturations were in the 70s. She was recently treated for an upper respiratory infection with amoxicillin. She required BiPAP therapy. Her influenza A and B were negative. She has also had negative blood cultures. Her chest x-ray showed flash pulmonary edema. She was given IV Lasix and transferred from [place] to [facility] and placed on BiPAP therapy as above. She was found to have acute kidney injury, hyponatremia. She also had some mildly elevated troponins and was ruled in for a non-STEMI, underwent heart catheterization by Dr. Henry Ashley which showed ejection fraction of 20%, severely reduced LV systolic function, severe 3-vessel disease. She had the LAD proximally 90% stenosed, proximal portion of the obtuse marginal was 80%. The left circumflex was 50%, the RCA 80%. We were consulted to evaluate for coronary artery bypass grafting. PAST MEDICAL HISTORY: Includes chronic lymphocytic leukemia, diagnosed in 2005. She never required any chemo or treatment. They just monitored her blood counts. Other history includes essential hypertension, hyperlipidemia. 06/10 pt now on room air still has some congestion feels better, scheduled for surgery Wed 06/15 Objective: Vital Signs - 24 hr 06/09/18 14:00 06/09/18 15:52 06/09/18 16:00 Temperature 98.6 F Pulse Rate 80 78 75 Respiratory Rate 24 16 Blood Pressure 104/56 L Pulse Oximetry 95 06/09/18 18:00 06/09/18 20:00 06/09/18 20:37 Temperature 98.7 F Pulse Rate 76 82 80 Respiratory Rate 20 22 Blood Pressure 144/77 H Pulse Oximetry 95 06/10/18 00:00 06/10/18 04:00 06/10/18 08:00 Temperature 98.5 F 98.0 F 98.0 F Pulse Rate 68 69 65 Respiratory Rate 16 16 15 Blood Pressure 128/69 127/69 120/66 Pulse Oximetry 93 L 94 L 06/10/18 08:13 06/10/18 11:03 06/10/18 12:00 Temperature 98.1 F Pulse Rate 66 71 68 Respiratory Rate 20 22 16 Blood Pressure 109/63 Pulse Oximetry 97 94 L 06/10/18 13:00 06/10/18 13:32 Temperature Pulse Rate 70 62 Respiratory Rate Blood Pressure Pulse Oximetry GENERAL: A&O x 3 SKIN: Warm and dry. HEAD: Normocephalic. EYES: No scleral icterus. No injection or drainage. NECK: Supple, trachea midline. No JVD or lymphadenopathy. CARDIOVASCULAR: Regular rate and rhythm without murmurs, gallops, or rubs. RESPIRATORY: Breath sounds equal bilaterally. No accessory muscle use. diminished in bases GASTROINTESTINAL: Abdomen soft, non-tender, nondistended. MUSCULOSKELETAL: No cyanosis, or edema. BACK: Nontender without obvious deformity. No CVA tenderness. Labs: Laboratory Results - last 12 hr 06/10/18 06/10/18 06/10/18 03:55 05:46 05:46 WBC 4.3 RBC 3.42 L Hgb 10.8 L Hct 31.1 L MCV 90.8 MCH 31.6 MCHC 34.8 RDW 13.6 Plt Count 223 MPV 8.0 Neut % (Auto) 64.1 Lymph % (Auto) 21.0 [place] % (Auto) 12.0 H Eos % (Auto) 2.0 Baso % (Auto) 0.9 Neut # (Auto) 2.7 Lymph # (Auto) 0.9 L [place] # (Auto) 0.5 Eos # (Auto) 0.1 Baso # (Auto) 0.0 WBC Differential . Differential Comment Auto diff final Sodium 132 L Potassium 3.5 Chloride 97 L Carbon Dioxide 27.8 Anion Gap 7 BUN 16 Creatinine 0.88 Estimated GFR 63 L Random Glucose 102 Calcium 8.5 Phosphorus 3.5 Magnesium 2.2 Urine Color Yellow Urine Clarity Clear Urine pH 6.0 Ur Specific [place] 1.010 Urine Protein Negative Urine Glucose (UA) Negative Urine Ketones Negative Urine Occult Blood Negative Urine Nitrate Negative Urine Bilirubin Negative Urine Urobilinogen Less than 2 Ur Leukocyte Esterase Negative Urine RBC Less than 1 Urine WBC Less than 1 Ur Squamous Epith Cells <1 Urine Mucus Few H Micro UA Comment Culture not ind Ur Microscopic Review Not Reportable Urine Culture Comments Culture not ind Result Diagrams: 06/10/18 05:46 06/10/18 05:46 Telemetry: NSR - Plan (1) Acute respiratory failure Plan: resolved, continue pulm toileting (2) Acute kidney injury Plan: reolved creatinine 1.03 (3) Ischemic cardiomyopathy Plan: EF 40% by Echo (4) Coronary artery disease Plan: ASA, statin , BB for surgery 06/15 (4) Coronary artery disease Qualifiers: Coronary Disease-Associated Artery/Lesion type: [place] artery [place] vs. transplanted heart: [place] heart Associated angina: with unstable angina Qualified Code(s): I25.110 - Atherosclerotic heart disease of [place] coronary artery with unstable angina pectoris
--- NOTE | 2018-06-10 13:53 | P.PNCV ---
- Note Subjective/Hospital Course: 77-year-old female visiting from [place], [place], here on vacation visiting her [id number]. Apparently presented to the emergency department with severe shortness of breath, acute tachypnea. O2 saturations were in the 70s. She was recently treated for an upper respiratory infection with amoxicillin. She required BiPAP therapy. Her influenza A and B were negative. She has also had negative blood cultures. Her chest x-ray showed flash pulmonary edema. She was given IV Lasix and transferred from [place] to [facility] and placed on BiPAP therapy as above. She was found to have acute kidney injury, hyponatremia. She also had some mildly elevated troponins and was ruled in for a non-STEMI, underwent heart catheterization by Dr. Henry Ashley which showed ejection fraction of 20%, severely reduced LV systolic function, severe 3-vessel disease. She had the LAD proximally 90% stenosed, proximal portion of the obtuse marginal was 80%. The left circumflex was 50%, the RCA 80%. We were consulted to evaluate for coronary artery bypass grafting. PAST MEDICAL HISTORY: Includes chronic lymphocytic leukemia, diagnosed in 2005. She never required any chemo or treatment. They just monitored her blood counts. Other history includes essential hypertension, hyperlipidemia. 06/10 pt now on room air still has some congestion feels better, scheduled for surgery Wed 06/15 sts discussed with pt [facility] Procedure: Isolated CAB CALCULATE Risk of Mortality: 3.560% Renal Failure: 2.263% Permanent Stroke: 1.589% Prolonged Ventilation: 11.124% DSW Infection: 0.303% Reoperation: 2.928% Morbidity or Mortality: 16.099% Short Length of Stay: 23.290% Long Length of Stay: 8.771% Objective: Vital Signs - 24 hr 06/09/18 14:00 06/09/18 15:52 06/09/18 16:00 Temperature 98.6 F Pulse Rate 80 78 75 Respiratory Rate 24 16 Blood Pressure 104/56 L Pulse Oximetry 95 06/09/18 18:00 06/09/18 20:00 06/09/18 20:37 Temperature 98.7 F Pulse Rate 76 82 80 Respiratory Rate 20 22 Blood Pressure 144/77 H Pulse Oximetry 95 06/10/18 00:00 06/10/18 04:00 06/10/18 08:00 Temperature 98.5 F 98.0 F 98.0 F Pulse Rate 68 69 65 Respiratory Rate 16 16 15 Blood Pressure 128/69 127/69 120/66 Pulse Oximetry 93 L 94 L 06/10/18 08:13 06/10/18 11:03 06/10/18 12:00 Temperature 98.1 F Pulse Rate 66 71 68 Respiratory Rate 20 22 16 Blood Pressure 109/63 Pulse Oximetry 97 94 L 06/10/18 13:00 06/10/18 13:32 Temperature Pulse Rate 70 62 Respiratory Rate Blood Pressure Pulse Oximetry Labs: Laboratory Results - last 12 hr 06/10/18 06/10/18 06/10/18 03:55 05:46 05:46 WBC 4.3 RBC 3.42 L Hgb 10.8 L Hct 31.1 L MCV 90.8 MCH 31.6 MCHC 34.8 RDW 13.6 Plt Count 223 MPV 8.0 Neut % (Auto) 64.1 Lymph % (Auto) 21.0 [place] % (Auto) 12.0 H Eos % (Auto) 2.0 Baso % (Auto) 0.9 Neut # (Auto) 2.7 Lymph # (Auto) 0.9 L [place] # (Auto) 0.5 Eos # (Auto) 0.1 Baso # (Auto) 0.0 WBC Differential . Differential Comment Auto diff final Sodium 132 L Potassium 3.5 Chloride 97 L Carbon Dioxide 27.8 Anion Gap 7 BUN 16 Creatinine 0.88 Estimated GFR 63 L Random Glucose 102 Calcium 8.5 Phosphorus 3.5 Magnesium 2.2 Urine Color Yellow Urine Clarity Clear Urine pH 6.0 Ur Specific [place] 1.010 Urine Protein Negative Urine Glucose (UA) Negative Urine Ketones Negative Urine Occult Blood Negative Urine Nitrate Negative Urine Bilirubin Negative Urine Urobilinogen Less than 2 Ur Leukocyte Esterase Negative Urine RBC Less than 1 Urine WBC Less than 1 Ur Squamous Epith Cells <1 Urine Mucus Few H Micro UA Comment Culture not ind Ur Microscopic Review Not Reportable Urine Culture Comments Culture not ind Result Diagrams: 06/10/18 05:46 06/10/18 05:46 - Plan (1) Acute respiratory failure Plan: resolved, continue pulm toileting (2) Acute kidney injury Plan: reolved creatinine 1.03 (3) Ischemic cardiomyopathy Plan: EF 40% by Echo (4) Coronary artery disease Plan: ASA, statin , BB for surgery 12/5 (4) Coronary artery disease Qualifiers: Coronary Disease-Associated Artery/Lesion type: [place] artery [place] vs. transplanted heart: [place] heart Associated angina: with unstable angina Qualified Code(s): I25.110 - Atherosclerotic heart disease of [place] coronary artery with unstable angina pectoris
[2018-06-10] MEDS: Sod Chloride 0.9% Inj 1,000 ML IV.CONT SCH (15:59)
[2018-06-10] MEDS: Famotidine 20 MG Tablet PO SCH (21:45)
[2018-06-11] MEDS: Chlorhexidine Gluconate 2% 1 Pack (2 Cloths) TOPICAL SCH (05:13)
[2018-06-11] MEDS: Azithromycin 250 MG Tablet PO SCH (08:23)
[2018-06-11] MEDS: Furosemide 40 MG Tablet PO SCH ×2 (08:23→17:15)
[2018-06-11] MEDS: Carvedilol 12.5 MG Tablet PO SCH ×2 (08:23→20:29)
[2018-06-11] MEDS: Senna/Docusate Sodium 8.6/50 MG Tablet PO SCH ×2 (08:24→20:30)
[2018-06-11] MEDS: Heparin - SQ 10,000 UNITS/ML Vial SQ SCH ×2 (08:24→20:29)
--- NOTE | 2018-06-11 09:17 | P.PN ---
Subjective Interval history: Follow-up for non-STEMI, severe multivessel coronary artery disease. Patient is currently doing well. She is ambulating. No chest pain, shortness of breath , fever or chills. She does complain of some sinus congestions. Physical Exam Vital signs: Vital Signs 06/10/18 11:03 06/10/18 12:00 06/10/18 13:00 Temperature 98.1 F Pulse Rate 71 68 70 Respiratory Rate 22 16 Blood Pressure 109/63 Pulse Oximetry 94 L 06/10/18 13:32 06/10/18 15:00 06/10/18 15:45 Temperature Pulse Rate 62 72 69 Respiratory Rate 18 Blood Pressure Pulse Oximetry 06/10/18 15:46 06/10/18 15:57 06/10/18 17:00 Temperature 98.1 F Pulse Rate 73 73 79 Respiratory Rate 16 Blood Pressure 105/65 Pulse Oximetry 92 L 06/10/18 17:16 06/10/18 19:00 06/10/18 20:00 Temperature 97.5 F L Pulse Rate 80 84 74 Respiratory Rate 16 Blood Pressure 121/72 Pulse Oximetry 94 L 06/10/18 20:18 06/10/18 21:00 06/10/18 22:00 Temperature Pulse Rate 78 72 70 Respiratory Rate 16 Blood Pressure Pulse Oximetry 95 06/10/18 23:00 06/11/18 00:00 06/11/18 01:00 Temperature Pulse Rate 71 74 58 L Respiratory Rate Blood Pressure Pulse Oximetry 06/11/18 02:00 06/11/18 03:00 06/11/18 04:00 Temperature 98.4 F Pulse Rate 66 59 L 96 H Respiratory Rate 16 Blood Pressure 108/57 L Pulse Oximetry 96 06/11/18 05:00 06/11/18 06:00 06/11/18 07:32 Temperature Pulse Rate 56 L 73 70 Respiratory Rate 16 Blood Pressure Pulse Oximetry 95 06/11/18 08:00 Temperature 98.2 F Pulse Rate 68 Respiratory Rate 20 Blood Pressure 119/64 Pulse Oximetry 94 L Intake & Output 06/10/18 06/11/18 06/11/18 18:59 06:59 18:59 Intake Total 1600 / 1600 480 / 480 Balance 1600 / 1600 480 / 480 Weight 76.4 kg Intake: IV 100 / 100 0 / 0 NS Inj 1,000 ML @ 30 mls/hr IV. 0 / 0 CONT .Q24H [facility] Rx#:[id number] Rocephin Inj 1,000 MG In NS Inj 100 / 100 100 ML @ 200 mls/hr IV.SIG Q24H [facility] Rx#:[id number] Oral 1500 / 1500 480 / 480 Other: # Voids 3 3 Date of Last Bowel Movement 06/10/18 06/10/18 # Bowel Movements 1 Narrative: GENERAL: Alert, oriented x3, NAD. SKIN: Warm and dry. HEAD: Normocephalic. EYES: No scleral icterus. No injection or drainage. NECK: Supple, trachea midline. No JVD or lymphadenopathy. CARDIOVASCULAR: Regular rate and rhythm without murmurs, gallops, or rubs. RESPIRATORY: Breath sounds equal bilaterally. No accessory muscle use. GASTROINTESTINAL: Abdomen soft, non-tender, nondistended. MUSCULOSKELETAL: No cyanosis, or edema. BACK: Nontender without obvious deformity. No CVA tenderness. Results - Labs CBC & Chem 7: 06/10/18 05:46 06/10/18 05:46 Microbiology 06/07/18 03:05 Blood - Peripheral Aerobic Blood Culture - Preliminary No growth in 3 days 06/07/18 03:05 Blood - Peripheral Anaerobic Blood Culture - Preliminary No growth in 3 days 06/07/18 03:15 Blood - Peripheral Aerobic Blood Culture - Preliminary No growth in 3 days 06/07/18 03:15 Blood - Peripheral Anaerobic Blood Culture - Preliminary No growth in 3 days - Procedures Cardiac catheterization 06/07/2018 1. Severe 3-vessel coronary artery disease. 2. Left dominant system. 3. Severely reduced left ventricular systolic function with ejection fraction estimated at 20%. Echo 05/07/2018 Normal left ventricular size. Wall thickness is normal. The left ventricular systolic function is mildly reduced with an estimated ejection fraction of 40- 45%. There is global hypokinesis with distinct regional wall motion abnormalities. There is akinesis of the apex, mid to apical lateral wall, apical posterolateral wall. and anteroapical wall. The left atrial size is upper limits of normal. Mild mitral valve regurgitation. Aortic valve sclerosis is present. The estimated pulmonary arterial pressure is 30mmHg Assessment and Plan - Plan Ms. Perez is a pleasant 77-year-old female with history of hypertension, hyperlipidemia, CLL who presented to the emergency department on 06/07/2018 due to shortness of breath. She was noted to have flash pulmonary edema. Patient was managed in the ICU and received IV furosemide. EKG revealed Q waves in the inferior leads. Troponin was elevated to 1.08, 24.8, 17.9. And underwent cardiac catheterization which revealed severe multivessel coronary artery disease. Cardiothoracic surgery was consulted. Non-ST elevation myocardial infarction Flash pulmonary edema Multivessel coronary artery disease It is currently on room air. Cardiothoracic surgery evaluated patient with regards to multivessel coronary artery disease. CABG is planned for next week (06/15/2018) Continue aspirin 81 mg, atorvastatin 20 mg, carvedilol 12.5 mg twice daily Continue losartan 50 mg daily Continue furosemide 40 mg p.o. twice daily Possible pneumonia Patient is currently on ceftriaxone and azithromycin - to be finished on 2017. Seasonal allergy/sinus congestion fluticasone PRN Full code. Heparin SQ
[2018-06-11] MEDS: Sod Chloride 0.9% Inj 1,000 ML IV.CONT SCH (19:40)
[2018-06-11] MEDS: Famotidine 20 MG Tablet PO SCH (20:30)
[2018-06-12] MEDS: Carvedilol 12.5 MG Tablet PO SCH ×2 (08:55→20:18)
[2018-06-12] MEDS: Senna/Docusate Sodium 8.6/50 MG Tablet PO SCH ×2 (08:56→20:18)
[2018-06-12] MEDS: Furosemide 40 MG Tablet PO SCH ×2 (08:56→17:17)
[2018-06-12] MEDS: Heparin - SQ 10,000 UNITS/ML Vial SQ SCH ×2 (08:56→20:18)
--- NOTE | 2018-06-12 11:18 | P.PN ---
Subjective Interval history: seen with zev at bedside very tough lady here visiting from [place] main complain- is voice- hoarse- no shortness of breath or chest pain cough dry Physical Exam Vital signs: Vital Signs 06/11/18 12:00 06/11/18 13:00 06/11/18 14:00 Temperature 97.9 F Pulse Rate 70 82 66 Respiratory Rate 16 Blood Pressure 111/67 Pulse Oximetry 92 L 06/11/18 15:00 06/11/18 16:00 06/11/18 17:00 Temperature 98.1 F Pulse Rate 73 68 68 Respiratory Rate 16 Blood Pressure 106/68 Pulse Oximetry 93 L 06/11/18 18:00 06/11/18 19:00 06/11/18 19:36 Temperature 96.2 F L Pulse Rate 73 91 H 78 Respiratory Rate 18 Blood Pressure 129/79 Pulse Oximetry 93 L 06/11/18 20:00 06/11/18 20:03 06/11/18 21:00 Temperature Pulse Rate 70 54 L Respiratory Rate Blood Pressure Pulse Oximetry 94 L 06/11/18 22:00 06/11/18 23:00 06/12/18 00:00 Temperature Pulse Rate 84 75 80 Respiratory Rate Blood Pressure Pulse Oximetry 06/12/18 01:00 06/12/18 02:00 06/12/18 03:00 Temperature Pulse Rate 62 60 55 L Respiratory Rate Blood Pressure Pulse Oximetry 06/12/18 04:00 06/12/18 05:00 06/12/18 06:00 Temperature 97.6 F Pulse Rate 60 56 L 54 L Respiratory Rate 18 Blood Pressure 142/88 H Pulse Oximetry 97 06/12/18 07:00 06/12/18 08:00 06/12/18 09:00 Temperature 98.4 F Pulse Rate 56 L 71 70 Respiratory Rate 18 Blood Pressure 120/66 Pulse Oximetry 93 L 06/12/18 10:00 06/12/18 10:31 Temperature Pulse Rate 82 68 Respiratory Rate Blood Pressure Pulse Oximetry Intake & Output 06/11/18 06/12/18 06/12/18 18:59 06:59 18:59 Intake Total 724 / 724 360 / 360 Output Total 1200 / 1200 1400 / 1400 Balance -476 / -476 -1040 / -1040 Weight 76.1 kg Intake: IV 100 / 100 Rocephin Inj 1,000 MG In NS Inj 100 / 100 100 ML @ 200 mls/hr IV.SIG Q24H [facility] Rx#:[id number] Oral 624 / 624 360 / 360 Output: Urine 1200 / 1200 1400 / 1400 Other: Date of Last Bowel Movement 06/10/18 06/12/18 # Bowel Movements 1 Narrative: GENERAL: Alert, oriented x3, NAD. SKIN: Warm and dry. HEAD: Normocephalic. throat- no exudates EYES: No scleral icterus. No injection or drainage. NECK: Supple, trachea midline. No JVD or lymphadenopathy. CARDIOVASCULAR: Regular rate and rhythm without murmurs, gallops, or rubs. RESPIRATORY: Breath sounds equal bilaterally. No accessory muscle use. GASTROINTESTINAL: Abdomen soft, non-tender, nondistended. MUSCULOSKELETAL: No cyanosis, or edema. BACK: Nontender without obvious deformity. No CVA tenderness. Results - Labs CBC & Chem 7: 06/10/18 05:46 06/10/18 05:46 Microbiology 06/07/18 03:05 Blood - Peripheral Aerobic Blood Culture - Final No growth in 5 days 06/07/18 03:05 Blood - Peripheral Anaerobic Blood Culture - Final No growth in 5 days 06/07/18 03:15 Blood - Peripheral Aerobic Blood Culture - Final No growth in 5 days 06/07/18 03:15 Blood - Peripheral Anaerobic Blood Culture - Final No growth in 5 days - Procedures Cardiac catheterization 06/07/2018 1. Severe 3-vessel coronary artery disease. 2. Left dominant system. 3. Severely reduced left ventricular systolic function with ejection fraction estimated at 20%. Echo 05/07/2018 Normal left ventricular size. Wall thickness is normal. The left ventricular systolic function is mildly reduced with an estimated ejection fraction of 40- 45%. There is global hypokinesis with distinct regional wall motion abnormalities. There is akinesis of the apex, mid to apical lateral wall, apical posterolateral wall. and anteroapical wall. The left atrial size is upper limits of normal. Mild mitral valve regurgitation. Aortic valve sclerosis is present. The estimated pulmonary arterial pressure is 30mmHg Assessment and Plan - Plan Ms. Perez is a pleasant 77-year-old female with history of hypertension, hyperlipidemia, CLL who presented to the emergency department on 06/07/2018 due to shortness of breath. She was noted to have flash pulmonary edema. Patient was managed in the ICU and received IV furosemide. EKG revealed Q waves in the inferior leads. Troponin was elevated to 1.08, 24.8, 17.9. And underwent cardiac catheterization which revealed severe multivessel coronary artery disease. Cardiothoracic surgery was consulted. Non-ST elevation myocardial infarction Flash pulmonary edema Multivessel coronary artery disease It is currently on room air. Cardiothoracic surgery evaluated patient with regards to multivessel coronary artery disease. CABG is planned for next week (06/15/2018) Continue aspirin 81 mg, atorvastatin 20 mg, carvedilol 12.5 mg twice daily Continue losartan 50 mg daily Continue furosemide 40 mg p.o. twice daily Bronchitis -Possible pneumonia Laryngitis Atelectasis on XR Patient is currently on ceftriaxone and azithromycin - to be finished on 2017. - instruct patient to speak in soft voice - Incentive spirometry hourly Seasonal allergy/sinus congestion fluticasone PRN Full code. Heparin SQ
[2018-06-12] MEDS ORDERED: Benzocaine/Menthol 15 MG/3.6 MG SF Lozenge BUCCAL PRN (11:32)
[2018-06-12] MEDS: Sod Chloride 0.9% Inj 1,000 ML IV.CONT SCH (15:37)
[2018-06-12] MEDS: Famotidine 20 MG Tablet PO SCH (20:18)
[2018-06-13] MEDS: Senna/Docusate Sodium 8.6/50 MG Tablet PO SCH ×2 (08:29→20:40)
[2018-06-13] MEDS: Carvedilol 12.5 MG Tablet PO SCH ×2 (08:30→20:40)
[2018-06-13] MEDS: Furosemide 40 MG Tablet PO SCH ×2 (08:30→17:34)
[2018-06-13] MEDS: Heparin - SQ 10,000 UNITS/ML Vial SQ SCH ×2 (08:30→20:40)
--- NOTE | 2018-06-13 10:43 | P.PN ---
Subjective Interval history: up in chair seen with at bedside feeling better voice better add: complains of pain on the left leg- medial aspect just below the knee- - had surgery this leg- tib/fib- with screws and plates place years ago on exam- able to bear weight , gait steady no swelling or erythema on exam feels screw or plates ? loose non tender on exam IS done at bedside- - encourage to do it every hour when awake Physical Exam Vital signs: Vital Signs 06/12/18 11:51 06/12/18 12:00 06/12/18 13:00 Temperature 98.3 F Pulse Rate 65 60 Respiratory Rate 18 Blood Pressure 96/58 L Pulse Oximetry 95 95 06/12/18 14:00 06/12/18 14:07 06/12/18 16:00 Temperature 98.2 F Pulse Rate 68 64 65 Respiratory Rate 18 Blood Pressure 112/67 Pulse Oximetry 92 L 06/12/18 17:00 06/12/18 17:28 06/12/18 19:00 Temperature Pulse Rate 69 72 67 Respiratory Rate Blood Pressure Pulse Oximetry 06/12/18 20:00 06/12/18 21:00 06/12/18 21:53 Temperature 98.3 F Pulse Rate 64 60 Respiratory Rate 20 Blood Pressure 134/97 H Pulse Oximetry 94 L 98 06/12/18 22:00 06/12/18 23:00 06/13/18 00:00 Temperature Pulse Rate 56 L 56 L 54 L Respiratory Rate Blood Pressure Pulse Oximetry 06/13/18 01:00 06/13/18 02:00 06/13/18 03:00 Temperature Pulse Rate 85 61 61 Respiratory Rate Blood Pressure Pulse Oximetry 06/13/18 04:00 06/13/18 05:00 06/13/18 06:00 Temperature 97.6 F Pulse Rate 54 L 52 L 54 L Respiratory Rate 18 Blood Pressure 114/71 Pulse Oximetry 97 06/13/18 07:00 06/13/18 08:00 06/13/18 09:00 Temperature 98.1 F Pulse Rate 71 71 69 Respiratory Rate 18 Blood Pressure 130/74 Pulse Oximetry 93 L 06/13/18 10:00 Temperature Pulse Rate 70 Respiratory Rate Blood Pressure Pulse Oximetry Intake & Output 06/12/18 06/13/18 06/13/18 18:59 06:59 18:59 Intake Total 1360 / 1360 660 / 660 Output Total 1300 / 1300 1000 / 1000 Balance 60 / 60 -340 / -340 Weight 71.6 kg Intake: IV 100 / 100 Rocephin Inj 1,000 MG In NS Inj 100 / 100 100 ML @ 200 mls/hr IV.SIG Q24H [facility] Rx#:[id number] Oral 1260 / 1260 660 / 660 Output: Urine 1300 / 1300 1000 / 1000 Narrative: Alert, oriented x3, NAD. throat- no exudates anicteric neck supple Regular rate and rhythm without murmurs, gallops, or rubs. lungs- no rales, no wheezes, Abdomen soft, non-tender, nondistended. No cyanosis, or edema. Results - Labs CBC & Chem 7: 06/10/18 05:46 06/10/18 05:46 Microbiology 06/07/18 03:05 Blood - Peripheral Aerobic Blood Culture - Final No growth in 5 days 06/07/18 03:05 Blood - Peripheral Anaerobic Blood Culture - Final No growth in 5 days 06/07/18 03:15 Blood - Peripheral Aerobic Blood Culture - Final No growth in 5 days 06/07/18 03:15 Blood - Peripheral Anaerobic Blood Culture - Final No growth in 5 days - Procedures Cardiac catheterization 06/07/2018 1. Severe 3-vessel coronary artery disease. 2. Left dominant system. 3. Severely reduced left ventricular systolic function with ejection fraction estimated at 20%. Echo 05/07/2018 Normal left ventricular size. Wall thickness is normal. The left ventricular systolic function is mildly reduced with an estimated ejection fraction of 40- 45%. There is global hypokinesis with distinct regional wall motion abnormalities. There is akinesis of the apex, mid to apical lateral wall, apical posterolateral wall. and anteroapical wall. The left atrial size is upper limits of normal. Mild mitral valve regurgitation. Aortic valve sclerosis is present. The estimated pulmonary arterial pressure is 30mmHg Assessment and Plan - Plan Ms. Perez is a pleasant 77-year-old female with history of hypertension, hyperlipidemia, CLL who presented to the emergency department on 06/07/2018 due to shortness of breath. She was noted to have flash pulmonary edema. Patient was managed in the ICU and received IV furosemide. EKG revealed Q waves in the inferior leads. Troponin was elevated to 1.08, 24.8, 17.9. And underwent cardiac catheterization which revealed severe multivessel coronary artery disease. Cardiothoracic surgery was consulted. Non-ST elevation myocardial infarction Flash pulmonary edema Multivessel coronary artery disease It is currently on room air. Cardiothoracic surgery evaluated patient with regards to multivessel coronary artery disease. CABG is planned for next week (06/15/2018) Continue aspirin 81 mg, atorvastatin 20 mg, carvedilol 12.5 mg twice daily Continue losartan 50 mg daily Continue furosemide 40 mg p.o. twice daily Bronchitis -Possible pneumonia Laryngitis - voice better some atelectasis on XR Patient is currently on ceftriaxone and azithromycin - to be finished on 2017. - instruct patient to speak in soft voice - good IS efforts - encourage to do hourly when awake Left lower leg- - feels plates/screws "may be loose" - exam unreamrkable- no misalignement on exam - we will get an xray Seasonal allergy/sinus congestion fluticasone PRN Full code. Heparin SQ
--- NOTE | 2018-06-13 13:12 | XR ---
EXAM DATE: 06/13/2018 1:06 PM EST AGE/SEX: 77 years / Female INDICATIONS: Left knee pain. No known trauma. Painful hardware. CLINICAL DATA: This is the patient's initial encounter. Patient reports that signs and symptoms have been present for 2 days and indicates a pain score of 8/10. MEDICAL/SURGICAL HISTORY: . Hypertension. Chronic lymphocytic leukemia. Hyperlipidemia. . Lym ph node biopsy. ORIF left tibia. COMPARISON: No prior exams available for comparison. FINDINGS: There is evidence of previous internal fixation involving the proximal tibia. Otherwise, the bony str uctures are grossly intact. There is good alignment at the knee and ankle joint. The soft tissues are unremarkable. The fibula is grossly intact. The hardware is grossly intact. CONCLUSION: 1. Status post internal fixation of the proximal tibia. 2. Otherwise, unremarkable plain films of the lower leg. Electronically signed by: Vitor Deng MD 06/13/2018 1:11 PM EST
--- NOTE | 2018-06-13 14:44 | P.PNCV ---
- Note Subjective/Hospital Course: 77-year-old female visiting from [place], [place], here on vacation visiting her [id number]. Apparently presented to the emergency department with severe shortness of breath, acute tachypnea. O2 saturations were in the 70s. She was recently treated for an upper respiratory infection with amoxicillin. She required BiPAP therapy. Her influenza A and B were negative. She has also had negative blood cultures. Her chest x-ray showed flash pulmonary edema. She was given IV Lasix and transferred from [place] to [facility] and placed on BiPAP therapy as above. She was found to have acute kidney injury, hyponatremia. She also had some mildly elevated troponins and was ruled in for a non-STEMI, underwent heart catheterization by Dr. Henry Ashley which showed ejection fraction of 20%, severely reduced LV systolic function, severe 3-vessel disease. She had the LAD proximally 90% stenosed, proximal portion of the obtuse marginal was 80%. The left circumflex was 50%, the RCA 80%. We were consulted to evaluate for coronary artery bypass grafting. PAST MEDICAL HISTORY: Includes chronic lymphocytic leukemia, diagnosed in 2005. She never required any chemo or treatment. They just monitored her blood counts. Other history includes essential hypertension, hyperlipidemia. 06/10 pt now on room air still has some congestion feels better, scheduled for surgery 06/15 sts discussed with pt [facility] Procedure: Isolated CAB CALCULATE Risk of Mortality: 3.560% Renal Failure: 2.263% Permanent Stroke: 1.589% Prolonged Ventilation: 11.124% DSW Infection: 0.303% Reoperation: 2.928% Morbidity or Mortality: 16.099% Short Length of Stay: 23.290% Long Length of Stay: 8.771% 06/13 06/13 pt doing well, voice still a little hoarse lungs sound clear, no fever or chills for surgery on wed Objective: Vital Signs - 24 hr 06/12/18 16:00 06/12/18 17:00 06/12/18 17:28 Temperature 98.2 F Pulse Rate 65 69 72 Respiratory Rate 18 Blood Pressure 112/67 Pulse Oximetry 92 L 06/12/18 19:00 06/12/18 20:00 06/12/18 21:00 Temperature 98.3 F Pulse Rate 67 64 60 Respiratory Rate 20 Blood Pressure 134/97 H Pulse Oximetry 94 L 06/12/18 21:53 06/12/18 22:00 06/12/18 23:00 Temperature Pulse Rate 56 L 56 L Respiratory Rate Blood Pressure Pulse Oximetry 98 06/13/18 00:00 06/13/18 01:00 06/13/18 02:00 Temperature Pulse Rate 54 L 85 61 Respiratory Rate Blood Pressure Pulse Oximetry 06/13/18 03:00 06/13/18 04:00 06/13/18 05:00 Temperature 97.6 F Pulse Rate 61 54 L 52 L Respiratory Rate 18 Blood Pressure 114/71 Pulse Oximetry 97 06/13/18 06:00 06/13/18 07:00 06/13/18 08:00 Temperature 98.1 F Pulse Rate 54 L 71 71 Respiratory Rate 18 Blood Pressure 130/74 Pulse Oximetry 93 L 06/13/18 09:00 06/13/18 10:00 06/13/18 11:00 Temperature Pulse Rate 69 70 63 Respiratory Rate Blood Pressure Pulse Oximetry 06/13/18 12:00 06/13/18 13:00 06/13/18 14:00 Temperature 97.5 F L Pulse Rate 69 72 70 Respiratory Rate 18 Blood Pressure 113/66 Pulse Oximetry 92 L GENERAL: SKIN: Warm and dry. HEAD: Normocephalic. EYES: No scleral icterus. No injection or drainage. NECK: Supple, trachea midline. No JVD or lymphadenopathy. CARDIOVASCULAR: Regular rate and rhythm without murmurs, gallops, or rubs. RESPIRATORY: Breath sounds equal bilaterally. No accessory muscle use. GASTROINTESTINAL: Abdomen soft, non-tender, nondistended. MUSCULOSKELETAL: No cyanosis, or edema. BACK: Nontender without obvious deformity. No CVA tenderness. Result Diagrams: 06/10/18 05:46 06/10/18 05:46 - Plan (1) Acute respiratory failure Plan: resolved, continue pulm toileting (2) Acute kidney injury Plan: reolved creatinine 1.03 (3) Ischemic cardiomyopathy Plan: EF 40% by Echo (4) Coronary artery disease Plan: ASA, statin , BB for surgery 06/15 (4) Coronary artery disease Qualifiers: Coronary Disease-Associated Artery/Lesion type: [place] artery [place] vs. transplanted heart: [place] heart Associated angina: with unstable angina Qualified Code(s): I25.110 - Atherosclerotic heart disease of [place] coronary artery with unstable angina pectoris
[2018-06-13] MEDS: Sod Chloride 0.9% Inj 1,000 ML IV.CONT SCH (16:33)
[2018-06-13] MEDS: Famotidine 20 MG Tablet PO SCH (20:40)
[2018-06-14 05:29] LABS: Hematocrit 35.3 % (35.0-46.0); Mean Corpuscular HGB Conc 34.1 % (32.0-36.0); Mean Corpuscular Hemoglobin 31.4 pg (27.0-34.0); Mean Corpuscular Volume 92.2 fL (80.0-100.0); Mean Platelet Volume 7.7 fL (7.0-11.0); Platelet Count 292 th/mm3 (150-450); Red Blood Count 3.82 mil/mm3 (4.00-5.30); Red Cell Distribution Width 13.6 % (11.6-17.2)
[2018-06-14 05:43] LABS: INR 1.1 Ratio; Prothrombin Time 11.2 sec (9.8-11.6)
[2018-06-14 05:47] LABS: Alanine Aminotransferase 45 U/L (10-53); Albumin 3.6 g/dL (3.4-5.0); Anion Gap 9 meq/L (5-15); Aspartate Aminotransferase 32 U/L (15-37); Blood Urea Nitrogen 28 mg/dL (7-18); Calcium 8.7 mg/dL (8.5-10.1); Carbon Dioxide 29.3 meq/L (21.0-32.0); Chloride 96 meq/L (98-107); Glomerular Filtration Rate 52 mL/min (>89); Glucose,Random 100 mg/dL (74-106); Sodium 134 meq/L (136-145)
[2018-06-14 05:49] LABS: Alkaline Phosphatase 46 U/L (45-117); Total Protein 7.4 g/dL (6.4-8.2)
[2018-06-14 07:03] LABS: Eosinophils 5 % (0-4); Lymphocytes 20 % (9-44); Monocytes 8 % (0-8)
[2018-06-14 07:06] LABS: Ovalocytes 1+; Platelet Estimate Normal (Normal); Platelet Morphology Normal (Normal)
[2018-06-14] MEDS: Senna/Docusate Sodium 8.6/50 MG Tablet PO SCH ×2 (08:39→21:43)
[2018-06-14] MEDS: Furosemide 40 MG Tablet PO SCH (08:39)
[2018-06-14] MEDS: Carvedilol 12.5 MG Tablet PO SCH ×2 (08:40→21:40)
[2018-06-14] MEDS: Heparin - SQ 10,000 UNITS/ML Vial SQ SCH (08:40)
--- NOTE | 2018-06-14 11:35 | P.PNIM ---
Subjective Interval history: No complaints from the patient today. She is resting comfortably in a chair. Her breathing continues to improve. She is medically stable for surgery. Physical Exam Vital signs: Last Vital Signs Temp 97.6 F 06/14/18 08:00 Pulse 77 06/14/18 10:00 Resp 18 06/14/18 08:00 BP 119/72 06/14/18 08:00 Pulse Ox 94 L 06/14/18 10:43 Intake & Output 06/12/18 06/13/18 06/14/18 06/15/18 06:59 06:59 06:59 06:59 Intake Total 1084 / 1084 2019 / 2019 1320 / 1320 Output Total 2600 / 2600 2300 / 2300 1650 / 1650 Balance -1516 / -1516 -280 / -280 -330 / -330 Weight 76.1 kg 71.6 kg 70.4 kg Narrative: GENERAL: NAD, A&Ox3 HEAD: Normocephalic. NECK: Supple, trachea midline. No lymphadenopathy. EYES: No scleral icterus. No injection or drainage. CARDIOVASCULAR: Regular rate and rhythm without murmurs, gallops, or rubs. RESPIRATORY: Breath sounds equal bilaterally. No accessory muscle use. Rhonchi bilaterally (improving) GASTROINTESTINAL: Abdomen soft, non-tender, nondistended. MUSCULOSKELETAL: No cyanosis, or edema. SKIN: Warm and dry. NEURO: No focal neurological deficits. Results Labs CBC & Chem 7: 06/14/18 04:28 06/14/18 04:28 Imaging Imaging: Impressions Tibia/Fibula X-Ray 06/13/18 00:00 CONCLUSION: 1. Status post internal fixation of the proximal tibia. 2. Otherwise, unremarkable plain films of the lower leg. Procedures Procedures: Cardiac catheterization 06/07/2018 1. Severe 3-vessel coronary artery disease. 2. Left dominant system. 3. Severely reduced left ventricular systolic function with ejection fraction estimated at 20%. Echo 05/07/2018 Normal left ventricular size. Wall thickness is normal. The left ventricular systolic function is mildly reduced with an estimated ejection fraction of 40- 45%. There is global hypokinesis with distinct regional wall motion abnormalities. There is akinesis of the apex, mid to apical lateral wall, apical posterolateral wall. and anteroapical wall. The left atrial size is upper limits of normal. Mild mitral valve regurgitation. Aortic valve sclerosis is present. The estimated pulmonary arterial pressure is 30mmHg Assessment and Plan Plan 77-year-old female admitted secondary to shortness of breath, found to have multivessel cardiac disease, CABG plan for 06/15/2018. History of hypertension, hyperlipidemia. Non-ST elevation myocardial infarction Flash pulmonary edema Multivessel coronary artery disease Stable on room air CABG planned for 06/15/2018 Continue aspirin Continue atorvastatin Continue carvedilol Continue losartan Continue furosemide Bronchitis -Possible pneumonia Laryngitis - voice better some atelectasis on XR Continue Rocephin Continue azithromycin Antibiotic treatments will be finished 06/15/2018 Clinically improving Medically stable for surgery Lower leg pain Possibly from prior hardware follow clinically Seasonal allergy sinus congestion fluticasone PRN DVT Prophylaxis Heparin SQ Progress Note: Quality VTE Deep Vein Thrombosis/Pulmonary Embolism Present on Admission: No
[2018-06-14] MEDS: Sod Chloride 0.9% Inj 1,000 ML IV.CONT SCH (16:42)
[2018-06-14] MEDS: Famotidine 20 MG Tablet PO SCH (21:40)
[2018-06-15] MEDS ORDERED: Chlorhexidine Gluconate 2% 1 Pack (2 Cloths) TOPICAL ONE (03:45)
[2018-06-15] MEDS ORDERED: Sodium Chlor 0.9% Inj 500 ML IV.CONT ONE (03:45)
[2018-06-15 05:10] LABS: Baso # (Auto) 0.1 th/mm3 (0.0-0.2); Baso % (Auto) 0.9 % (0.0-2.0); Eos # (Auto) 0.2 th/mm3 (0.0-0.4); Eos % (Auto) 3.7 % (0.0-4.0); Hemoglobin 12.1 gm/dL (11.6-15.3); INR 1.1 Ratio; Lymph # (Auto) 1.9 th/mm3 (1.0-4.8); Lymph % (Auto) 32.9 % (9.0-44.0); Mean Corpuscular HGB Conc 34.5 % (32.0-36.0); Mean Corpuscular Hemoglobin 31.1 pg (27.0-34.0); Mean Corpuscular Volume 90.3 fL (80.0-100.0); Mean Platelet Volume 8.3 fL (7.0-11.0); Mono # (Auto) 0.6 th/mm3 (0.0-0.9); Mono % (Auto) 10.6 % (0.0-8.0); Neut # (Auto) 2.9 th/mm3 (1.8-7.7); Neut % (Auto) 51.9 % (16.0-70.0); Platelet Count 302 th/mm3 (150-450); Prothrombin Time 11.4 sec (9.8-11.6); Red Blood Count 3.87 mil/mm3 (4.00-5.30); Red Cell Distribution Width 13.6 % (11.6-17.2); White Blood Count 5.7 th/mm3 (4.0-11.0)
[2018-06-15] MEDS: Carvedilol 12.5 MG Tablet PO SCH (05:16)
[2018-06-15 05:56] LABS: Albumin 3.7 g/dL (3.4-5.0); Anion Gap 10 meq/L (5-15); Aspartate Aminotransferase 27 U/L (15-37); Blood Urea Nitrogen 23 mg/dL (7-18); Calcium 8.9 mg/dL (8.5-10.1); Carbon Dioxide 27.1 meq/L (21.0-32.0); Chloride 95 meq/L (98-107); Glomerular Filtration Rate 57 mL/min (>89); Glucose,Random 100 mg/dL (74-106); Potassium 3.6 meq/L (3.5-5.1); Sodium 132 meq/L (136-145)
[2018-06-15 05:59] LABS: Alanine Aminotransferase 46 U/L (10-53); Alkaline Phosphatase 47 U/L (45-117); Total Protein 7.6 g/dL (6.4-8.2)
[2018-06-15] MEDS ORDERED: ceFAZolin 1 GM Premix Inj 1 GM/50 ML PIGGYBACK IV.SIG ONE ×2 (06:30→07:48)
[2018-06-15] MEDS ORDERED: Heparin - SQ 10,000 UNITS/ML Vial ONE ×2 (06:31)
[2018-06-15] MEDS ORDERED: MethylPREDNISolone Sod Succinate Inj 125 MG/2 ML Vial ONE (06:31)
[2018-06-15] MEDS ORDERED: Potassium Chloride Inj 40 MEQ/20 ML Vial ONE (07:09)
[2018-06-15] MEDS ORDERED: Cardioplegic Irr Soln 2,000 ML IRRIGATION ONE (07:09)
[2018-06-15] MEDS ORDERED: Heparin 10,000 UNITS/10 ML Vial (for IV use) ONE (07:10)
[2018-06-15] MEDS ORDERED: Albumin Human 25% Inj 50 ML IV.SIG ONE (07:10)
[2018-06-15] MEDS ORDERED: Calcium Chloride Inj 1 GM in Sodium Chlor 0.9% Inj 100 ML IV.SIG PRN (11:12)
[2018-06-15] MEDS ORDERED: Calcium Chloride Inj 1 GM/10 ML Syringe IV.PUSH PRN (11:12)
[2018-06-15] MEDS ORDERED: Dexmedetomidine Inj 200 MCG in Sodium Chlor 0.9% Inj 50 ML IV.CONT PRN (11:12)
[2018-06-15] MEDS ORDERED: Metoprolol Inj 5 MG/5 ML Vial IV.PUSH PRN (11:12)
[2018-06-15] MEDS ORDERED: Dextrose 50% in Water 50 ML Vial IV.PUSH PRN (11:12)
[2018-06-15] MEDS ORDERED: Insulin Regular (For Infusion) 100 UNIT in Sodium Chlor 0.9% Inj 99 ML IV.CONT PRN (11:12)
[2018-06-15] MEDS ORDERED: Magnesium Sulfate Inj 2 GM in Sodium Chlor 0.9% Inj 96 ML IV.SIG PRN ×4 (11:12)
[2018-06-15] MEDS ORDERED: fentaNYL Citrate Inj 100 MCG/2 ML Ampul IV.PUSH PRN (11:12)
[2018-06-15] MEDS ORDERED: Post-op Orders (for Pharmacy) OTHER STA (11:12)
[2018-06-15] MEDS ORDERED: Clevidipine Inj 25 MG/50 ML VIAL IV.CONT PRN (11:12)
[2018-06-15] MEDS ORDERED: RESP: Racemic Epinephrine 2.25% 0.5 ML Neb NEB PRN (11:12)
[2018-06-15] MEDS ORDERED: Potassium Chlor 20 mEq Premix 20 MEQ/100 ML PIGGYBACK IV.SIG PRN ×3 (11:12)
[2018-06-15] MEDS ORDERED: Albumin Human 5% Inj 250 ML IV.SIG PRN (11:12)
[2018-06-15] MEDS ORDERED: Albumin Human 5% Inj 250 ML IV.SIG ONE (12:03)
[2018-06-15] MEDS ORDERED: Potassium Chlor 20 mEq Premix 20 MEQ/100 ML PIGGYBACK IV.SIG ONE (12:03)
--- NOTE | 2018-06-15 12:17 | P.OP ---
- Preoperative Diagnosis (1) Combined systolic and diastolic congestive heart failure (2) Acute respiratory failure (3) Ischemic cardiomyopathy (4) Coronary artery disease Postoperative Diagnosis: same Date of procedure: 06/15/18 Procedure: CABG x 4 MCCARTHY to LAD - good SVG to RI - fair SVG to OM - good SVG to L PDA - good EVH Anesthesia: TEODORO Surgeon: Constance Salamanca MD Control Tower Radio Operator: Babatunde Tolentino Pathology: none sent Operation and Findings: The risks, benefits, complications, treatment options, and expected outcomes were discussed with the patient. The possibilities of reaction to medication, pulmonary aspiration, perforation of viscus, bleeding, recurrent infection, the need for additional procedures, failure to diagnose a condition, and creating a complication requiring transfusion or operation were discussed with the patient. The patient concurred with the proposed plan, giving informed consent. The site of surgery properly noted/marked. The patient was taken to Operating Room, identified as Lisa Perez and the procedure verified as CABG, EVH. A Time Out was held and the above information confirmed. Standard monitoring lines and Camarena catheter were placed. General anesthesia was induced. The patient was prepped and draped in a sterile fashion. A median sternotomy was performed and electrocautery was used to obtain hemostasis. The left internal mammary artery was procured as a pedicle from the 7th rib to the 1st rib in the usual manner. Simultaneously left greater saphenous vein was procured from the left leg using a minimally invasive endoscopic technique. The vein was prepared for anastomosis and the leg wound was irrigated and closed in 2 layers. The pericardium was opened and a pericardial sling was created using interrupted 0 silk sutures. The patient was heparinized for cardiopulmonary bypass and the distal mammary pedicle was instrumented for anastomosis. The heart was instrumented for cardiopulmonary bypass in the usual manner. Antegrade blood cardioplegia was employed. The patient was placed on cardiopulmonary bypass. An aortic cross-clamp was applied and the heart was arrested using cold blood cardioplegia. Antegrade cardioplegia was administered after he each anastomosis. After adequate arrest, the left PDA was opened with a [place] blade and found to be a 1.5 millimeter good target. Saphenous vein was approximated to the PDA artery using a running 7 0 Prolene suture. The graft was measured for length and orientation and the proximal anastomosis was constructed to the ascending aorta using a running 5 0 Prolene suture after creating an aortotomy with a 5 millimeter punch. The OM was opened with a [place] blade and found to be a 1.5 millimeter good target. Saphenous vein was approximated to the OM artery using a running 7 0 Prolene suture. The graft was measured for length and orientation and the proximal anastomosis was constructed to the ascending aorta using a running 5 0 Prolene suture after creating an aortotomy with a 5 millimeter punch. The ramus intermedius artery was then opened with a [place] blade and found to be a 1 millimeter diffusely diseased poor target. Saphenous vein was approximated to the RI artery using a running 7 0 Prolene suture. The graft was measured for length and orientation and was suspended from the pericardium. The distal LAD was opened with a [place] blade and found to be a 1.5 millimeter good target. The left internal mammary artery was approximated to the LAD using a running 7 0 Prolene suture. The pedicle was attached to the epicardium using interrupted 5 0 silk suture. The patient was systemically rewarmed and received a hotshot dose of warm blood cardioplegia. The aorta was vented and the proximal anastomosis to the RI graft was accomplished using a running 5 0 Prolene suture after creating an aortotomy was a 5 millimeter punch. The cross-clamp was removed and all proximal and distal anastomoses were examined for hemostasis. The patient was weaned from cardiopulmonary bypass. Protamine was given. There was no adverse reaction. Decannulation was carried out without incident. Wound was checked for hemostasis which was obtained using electrocautery. A 36 Qatari mediastinal and 32 Qatari left pleural chest tubes were placed and secured to the skin with 0 silk suture. The sternum was closed with stainless steel wire. The fascia was closed with 1. PDS. The subcutaneous tissue was closed using a running 2-0 Vicryl suture. The skin was closed with 4-0 Monocryl. Sterile dressings were placed. At the end of the operation, all sponge, instruments, and needle counts were correct. The patient was transferred to the CVICU in stable condition. Findings: LV function improved after revascularization to ~45% from ~25% XC: 78 min CPB: 88 min Drains: mediastinal x 1 pleural x 1 Complications: none
--- NOTE | 2018-06-15 12:21 | P.DCO ---
- Diagnosis (1) S/P CABG (coronary artery bypass graft) Status: Acute (2) Essential hypertension Status: Chronic (3) Hyperlipidemia Status: Chronic (4) Acute kidney injury Status: Acute (5) Ischemic cardiomyopathy Status: Chronic (6) Coronary artery disease Status: Chronic - Home Health Nursing Order: Medical education, Signs/symptoms of disease process, Wound care and dressing changes, Nursing assessment with vital signs Instructions: Heart and Vascular Surgery patients *Special attention to sternal dressing Mandatory frequency Assess and evaluation, 4 days in a row The next week 3X week 2 times a week for 4 weeks 1 time a week for 5 weeks Schedule Heart and Vascular patients for full 60 day certification period Initial visit Review Open Heart Surgery Discharge Instructions (Sternal precautions, Activity, Elastic hose, Incision care, Driving, Incentive spirometry, Smoking, [place], Work and other) Need Betadine to paint incision Medication reconciliation Importance of follow up care/ check on appointments Make calendar record temperature daily When to call [facility] at Home nurse, review instructions, phone list Incentive Spirometry, demonstration Visit 1- Begin discharge instruction for patient family and/ or caregiver using teach back method- Signs and symptoms of infection Disease characteristics Medicines and side effects Foods and nutrition/ appetite Infection control/ hand washing/ hygiene Visit 2- Continue teaching Discharge instructions- include additional information on smoking cessation , sternal dressing (sternal vac) Visit 3- Continue teaching- Cough and deep breathing, incision monitoring. Choose my plate Visit 4- Continue teaching- Discuss limitations Discuss how they are feeling Discuss progress toward goals Remaining visits- continue teaching and monitoring For any questions please call : Wednesday 8am-5pm Heart & Vascular Surgery Office ( Dr. Fong & Dr. Salamanca), After Hours / Nights (5pm -8am) Weekends and Holidays Please call [facility] ([facility] Charge Nurse PREVENA Single Use Negative Wound Therapy System Caregiver Instruction Sheet 1. A Prevena dressing system was applied to the chest incision during surgery , to promote wound healing. It works via a suction device (negative pressure wound therapy) to remove low to moderate levels of exudate (drainage) and infectious materials. We recommend that the device stay in place for up to seven days, from day of surgery. 2. Day of Surgery__/11/26 Day of Removal __12/12/18 3. The dressing should only be removed by a health home care chaplain. Please arrange removal of device to coincide with Home Health visit and or with Nursing staff at Rehab 4. If skin reddening or irritation of skin occurs, or excessive drainage, please notify the Cardiovascular Surgeons office at [phone]. 5. Light showering is permissible; however the pump should be disconnected and placed in safe location, where it will not get wet. The dressing should not be exposed to direct spray or submerged in water. No bath tub / shower only. Ensure the end of the tubing attached to the dressing is facing down so that water does not enter the top of the tube. 6. To remove Prevena dressing: press purple button to turn off device / remove the suction. Then disconnect the tubing from the pump. The fixation strips should be stretched away from the skin and the dressing lifted at one corner and peeled back until it has been fully removed. 7. After removal, it is ok to shower daily using liquid dial soap and clean wash cloth, rinse and pat dry, and leave incision open to air dry. For any concerns regarding Prevena dressing, and or wounds, please contact Francy Mix, patient navigator at [phone] or notify the Cardiovascular Surgeons office at [phone]. Incentive spirometry Q1 hr x 10, while awake, also use acapella device hourly whole awake Sternal Breast Bone Precautions: NO pushing or pulling, ( pt must use sternal pillow to support chest with all activities and with coughing ( takes up to 3 months breast bone to heal ) All females to wear sternal bra , launder as needed Daily incision care: ok to shower daily, no tub bath. Wash all incisions with liquid dial soap, clean wash cloth to each site, rinse and pat dry. Observe for any signs of infection, such as drainage which is dark yellow, doran, green or foul smelling. Immediately report to the surgeon any drainage from the chest incision, or legs, and for any abnormal drainage from the chest tube sites. Notify surgeon if any temp >101.5 degrees F. When specialty dressing removed/ or if you do not have one, continue to shower daily as above, then rinse and pat incision dry and paint with betadine daily x 5 days. Allow steri strips to fall off if you have any. Avoid lotions, creams, salves, oils, etc. for the first month Please see attached forms for additional instructions regarding post Open Heart specialty wound vacuum dressings. NANY or Prevena , Dressing to be removed by Nursing staff on _06/22/[address] Salamanca patients , please obtain CBC, BMP, PA & Lat CXR in 2 weeks, results to Dr. Salamanca ( prescription will be given) ( ) (Tele: [phone]) , F/U appointment: as per DC instructions: PCP in 2 weeks, CV surgeon 2 weeks, Compressor Station Chief Engineer 3-4 weeks For any questions regarding incisions/ dressing / meds / post op care or above Symptoms, Wednesday 8am-5pm Heart & Vascular Surgery Office ( Dr. Fong & Dr. Salamanca), After Hours / Nights (5pm -8am) Weekends and Holidays Please call [facility] ([facility]) Charge Nurse - Case Management Consult Case Management Consult-Home Health: Yes - Certification I have seen patient Lisa Perez on 06/15/18. My clinical findings support the need for the requested home health care services because: Deconditioned with increased weakness I certify that my clinical findings support that this patient is homebound because: Post-op weakness (3) Hyperlipidemia Qualifiers: Hyperlipidemia type: unspecified Qualified Code(s): E78.5 - Hyperlipidemia, unspecified (6) Coronary artery disease Qualifiers: Coronary Disease-Associated Artery/Lesion type: [place] artery [place] vs. transplanted heart: [place] heart Associated angina: with unstable angina Qualified Code(s): I25.110 - Atherosclerotic heart disease of [place] coronary artery with unstable angina pectoris
--- NOTE | 2018-06-15 12:31 | XR ---
EXAM DATE: 06/15/2018 12:26 PM EST AGE/SEX: 77 years / Female INDICATIONS: Post CABG. CLINICAL DATA: This is the patient's initial encounter. Patient reports that signs and symptoms have been present for 1 day and indicates a pain score of Nonresponsive. MEDICAL/SURGICAL HISTORY: . Hypertension. Chronic lymphocytic leukemia. Hyperlipidemia. Left Ti diana/Fibula fracture. . Lymph node biopsy. . [place] [facility] [place]. . FINDINGS: Portable AP view of the chest demonstrates a normal-sized cardiac silhouette in this patient post med jennifer sternotomy. Endotracheal tube is at the clavicular head level measuring approximately 4.5 cm from the valery, NG tube courses beyond the GE junction, and left subclavian central line distal tip is i n the superior vena cava. Mediastinal drain and left chest tube are present. There is no pneumothorax . Lungs are underinflated with mild bibasilar opacity. No pleural effusion is seen. Bones and soft ti ssues demonstrate no acute abnormality. CONCLUSION: 1. Expected changes following recent median sternotomy with tubes and lines in appropriate position, as above. There is no pneumothorax. 2. Mild bibasilar opacity most likely representing atelectasis given the appearance and underinflati on. Electronically signed by: Babatunde Tamez MD 06/15/2018 12:30 PM EST
[2018-06-15] MEDS: Furosemide 40 MG Tablet PO SCH (12:48)
[2018-06-15] MEDS: Senna/Docusate Sodium 8.6/50 MG Tablet PO SCH ×2 (12:49→20:36)
--- NOTE | 2018-06-15 13:07 | P.PNIM ---
Subjective Interval history: Patient is seen status post CABG. She remains intubated and sedated when I saw her. No acute distress. She is resting comfortably. Physical Exam Vital signs: Last Vital Signs Temp 98.5 F 06/15/18 03:00 Pulse 83 06/15/18 12:00 Resp 16 06/15/18 03:00 BP 128/71 06/15/18 03:00 Pulse Ox 93 L 06/15/18 03:00 Intake & Output 06/13/18 06/14/18 06/15/18 06/16/18 06:59 06:59 06:59 06:59 Intake Total 2019 / 2019 1320 / 1320 1100 / 1100 2700 / 2700 Output Total 2300 / 2300 1650 / 1650 400 / 400 850 / 850 Balance -280 / -280 -330 / -330 700 / 700 1850 / 1850 Weight 71.6 kg 70.4 kg 71.5 kg Narrative: GENERAL: NAD, A&Ox0, intubated/sedated HEAD: Normocephalic. NECK: Supple, trachea midline. No lymphadenopathy. EYES: No scleral icterus. No injection or drainage. CARDIOVASCULAR: Regular rate and rhythm without murmurs, gallops, or rubs. RESPIRATORY: Breath sounds equal bilaterally. No accessory muscle use. Rhonchi bilaterally (improving) GASTROINTESTINAL: Abdomen soft, non-tender, nondistended. MUSCULOSKELETAL: No cyanosis, or edema. SKIN: Warm and dry. NEURO: No focal neurological deficits. Urinary Catheter Management Indwelling Temp Sensing Catheter: Cath placed during this visit: yes Urethral indwelling: No Insertion date: 06/15/18 Insertion time: 07:35 Results Labs CBC & Chem 7: 06/15/18 03:34 06/15/18 03:34 Imaging Imaging: Impressions Chest X-Ray 06/15/18 11:12 CONCLUSION: 1. Expected changes following recent median sternotomy with tubes and lines in appropriate position, as above. There is no pneumothorax. 2. Mild bibasilar opacity most likely representing atelectasis given the appearance and underinflation. Procedures Procedures: Cardiac catheterization 06/07/2018 1. Severe 3-vessel coronary artery disease. 2. Left dominant system. 3. Severely reduced left ventricular systolic function with ejection fraction estimated at 20%. Echo 05/07/2018 Normal left ventricular size. Wall thickness is normal. The left ventricular systolic function is mildly reduced with an estimated ejection fraction of 40- 45%. There is global hypokinesis with distinct regional wall motion abnormalities. There is akinesis of the apex, mid to apical lateral wall, apical posterolateral wall. and anteroapical wall. The left atrial size is upper limits of normal. Mild mitral valve regurgitation. Aortic valve sclerosis is present. The estimated pulmonary arterial pressure is 30mmHg Assessment and Plan (1) S/P CABG (coronary artery bypass graft): Code(s): Z95.1 - Presence of aortocoronary bypass graft Status: Acute (2) Essential hypertension: Code(s): I10 - Essential (primary) hypertension Status: Chronic (3) Hyperlipidemia: Code(s): E78.5 - Hyperlipidemia, unspecified Status: Chronic (4) Acute kidney injury: Code(s): N17.9 - Acute kidney failure, unspecified Status: Acute (5) Ischemic cardiomyopathy: Code(s): I25.5 - Ischemic cardiomyopathy Status: Chronic (6) Coronary artery disease: Code(s): I25.10 - Atherosclerotic heart disease of [place] coronary artery without angina pectoris Status: Chronic Plan 77-year-old female admitted secondary to shortness of breath, found to have multivessel cardiac disease, CABG performed on 06/15/2018. History of hypertension, hyperlipidemia. Status post CABG surgery 06/15/2018. Doing well postop. Cardiothoracic surgeon following. Status post CABG Postop care per cardiothoracic surgeon Follow in critical care Non-ST elevation myocardial infarction Flash pulmonary edema Multivessel coronary artery disease Stable on room air CABG performed on 06/15/2018 Continue aspirin Continue atorvastatin Continue carvedilol Continue losartan Continue furosemide Bronchitis -Possible pneumonia Laryngitis - voice better some atelectasis on XR Continue Rocephin Continue azithromycin Antibiotic treatments will be finished 06/15/2018 Clinically improving Medically stable for surgery Lower leg pain Possibly from prior hardware follow clinically Seasonal allergy sinus congestion fluticasone PRN DVT Prophylaxis Heparin SQ Progress Note: Quality VTE Deep Vein Thrombosis/Pulmonary Embolism Present on Admission: No _ (1) Hyperlipidemia Qualifiers: Hyperlipidemia type: unspecified Qualified Code(s): E78.5 - Hyperlipidemia, unspecified (2) Coronary artery disease Qualifiers: Coronary Disease-Associated Artery/Lesion type: [place] artery [place] vs. transplanted heart: [place] heart Associated angina: with unstable angina Qualified Code(s): I25.110 - Atherosclerotic heart disease of [place] coronary artery with unstable angina pectoris
[2018-06-15] MEDS: Amiodarone 200 MG Tablet PO SCH ×2 (14:49→21:22)
[2018-06-15] MEDS: Sod Chloride 0.9% Inj 1,000 ML IV.CONT SCH (17:03)
[2018-06-15] MEDS: ceFAZolin 1 GM Premix Inj 1 GM/50 ML IV.SIG SCH (20:35)
[2018-06-15] MEDS: Famotidine 20 MG Tablet PO SCH (20:36)
[2018-06-16] MEDS: ceFAZolin 1 GM Premix Inj 1 GM/50 ML IV.SIG SCH ×3 (04:24→20:44)
--- NOTE | 2018-06-16 04:32 | XR ---
EXAM DATE: 06/16/2018 4:29 AM EST AGE/SEX: 77 years / Female INDICATIONS: Shortness of breath, possible pneumothorax. CLINICAL DATA: This is the patient's subsequent encounter. Patient reports that signs and symptoms h ave been present for 1 week and indicates a pain score of 8/10. MEDICAL/SURGICAL HISTORY: Hypertension. Chronic lymphocytic leukemia. Hyperlipidemia. CABG. Lymph node biopsy. COMPARISON: [facility] [place]ST 1V SINGLE AP, 06/15/2018. . FINDINGS: A single AP view of the chest demonstrates interval extubation and nasogastric tube removal. Left tho racostomy tubes and left subclavian central venous line remain. No pneumothorax. Heart is mildly enla rged but stable. No infiltrates or effusions. Median sternotomy wires. CONCLUSION: Interval extubation. No pneumothorax. Electronically signed by: Jamin Drake MD 06/16/2018 4:31 AM EST
[2018-06-16] MEDS: Amiodarone 200 MG Tablet PO SCH ×3 (05:33→21:53)
[2018-06-16 06:14] LABS: Baso # (Auto) 0.1 th/mm3 (0.0-0.2); Baso % (Auto) 0.4 % (0.0-2.0); Hematocrit 27.5 % (35.0-46.0); Hemoglobin 9.2 gm/dL (11.6-15.3); Lymph # (Auto) 1.2 th/mm3 (1.0-4.8); Lymph % (Auto) 8.8 % (9.0-44.0); Mean Corpuscular HGB Conc 33.5 % (32.0-36.0); Mean Corpuscular Hemoglobin 31.1 pg (27.0-34.0); Mean Corpuscular Volume 92.8 fL (80.0-100.0); Mean Platelet Volume 8.1 fL (7.0-11.0); Mono # (Auto) 0.8 th/mm3 (0.0-0.9); Mono % (Auto) 5.9 % (0.0-8.0); Neut % (Auto) 84.9 % (16.0-70.0); Platelet Count 192 th/mm3 (150-450); Red Blood Count 2.97 mil/mm3 (4.00-5.30); Red Cell Distribution Width 13.5 % (11.6-17.2); White Blood Count 14.2 th/mm3 (4.0-11.0)
[2018-06-16 07:06] LABS: Alanine Aminotransferase 30 U/L (10-53); Albumin 2.9 g/dL (3.4-5.0); Alkaline Phosphatase 30 U/L (45-117); Anion Gap 7 meq/L (5-15); Aspartate Aminotransferase 27 U/L (15-37); Blood Urea Nitrogen 17 mg/dL (7-18); Calcium 8.3 mg/dL (8.5-10.1); Carbon Dioxide 25.9 meq/L (21.0-32.0); Chloride 101 meq/L (98-107); Glomerular Filtration Rate 74 mL/min (>89); Glucose,Random 97 mg/dL (74-106); Magnesium 2.4 mg/dL (1.5-2.5); Potassium 4.2 meq/L (3.5-5.1); Sodium 134 meq/L (136-145); Total Protein 5.3 g/dL (6.4-8.2)
[2018-06-16] MEDS: Furosemide 40 MG Tablet PO SCH (09:23)
[2018-06-16] MEDS: Senna/Docusate Sodium 8.6/50 MG Tablet PO SCH ×2 (09:23→20:48)
[2018-06-16] MEDS ORDERED: Sod Phosphate/Sod Biphosphate (Adult) Enema 133 ML Bottle RECTAL PRN (09:25)
[2018-06-16] MEDS ORDERED: Dextrose 50% in Water 50 ML Vial IV.PUSH PRN (09:25)
[2018-06-16] MEDS ORDERED: Bisacodyl 10 MG Supp RECTAL PRN (09:25)
--- NOTE | 2018-06-16 09:33 | P.PNCV ---
- Note Subjective/Hospital Course: 77-year-old female visiting from [place], [place], here on vacation visiting her [id number]. Apparently presented to the emergency department with severe shortness of breath, acute tachypnea. O2 saturations were in the 70s. She was recently treated for an upper respiratory infection with amoxicillin. She required BiPAP therapy. Her influenza A and B were negative. She has also had negative blood cultures. Her chest x-ray showed flash pulmonary edema. She was given IV Lasix and transferred from [place] to [facility] and placed on BiPAP therapy as above. She was found to have acute kidney injury, hyponatremia. She also had some mildly elevated troponins and was ruled in for a non-STEMI, underwent heart catheterization by Dr. Henry Ashley which showed ejection fraction of 20%, severely reduced LV systolic function, severe 3-vessel disease. She had the LAD proximally 90% stenosed, proximal portion of the obtuse marginal was 80%. The left circumflex was 50%, the RCA 80%. We were consulted to evaluate for coronary artery bypass grafting. PAST MEDICAL HISTORY: Includes chronic lymphocytic leukemia, diagnosed in 2005. She never required any chemo or treatment. They just monitored her blood counts. Other history includes essential hypertension, hyperlipidemia. 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 (2) Acute respiratory failure (3) Ischemic cardiomyopathy (4) Coronary artery disease Postoperative Diagnosis: same Date of procedure: 06/15/18 Procedure: CABG x 4 MCCARTHY to LAD - good SVG to RI - fair SVG to OM - good SVG to L PDA - good EVH extubated after surgery 2700cc crystalloid , 400cc cell saver, EBL 200cc 12/ c/o of post op pain VSS, start BB , add diuresis pulm toileting OOB ambulate transfer to stepdown Objective: Vital Signs - 24 hr 06/15/18 11:55 06/15/18 12:00 06/15/18 15:00 Temperature 97.4 F L 97.9 F Pulse Rate 68 61 Respiratory Rate 12 12 13 Blood Pressure 111/63 112/66 Pulse Oximetry 98 98 93 L 06/15/18 16:00 06/15/18 16:03 06/15/18 16:15 Temperature Pulse Rate 76 Respiratory Rate 17 Blood Pressure Pulse Oximetry 100 99 06/15/18 16:35 06/15/18 19:00 06/15/18 20:48 Temperature 98.2 F Pulse Rate 79 Respiratory Rate 18 Blood Pressure 122/70 Pulse Oximetry 97 94 L 95 06/15/18 21:00 06/15/18 23:00 06/16/18 03:00 Temperature 97.9 F Pulse Rate 94 H 80 Respiratory Rate 22 18 18 Blood Pressure 127/66 Pulse Oximetry 95 06/16/18 03:38 06/16/18 04:00 06/16/18 07:00 Temperature 97.8 F 98.1 F Pulse Rate 87 80 68 Respiratory Rate 22 20 14 Blood Pressure 127/70 113/63 Pulse Oximetry 94 L 98 06/16/18 07:50 06/16/18 09:06 Temperature Pulse Rate 79 Respiratory Rate 17 Blood Pressure Pulse Oximetry 98 98 GENERAL: A&O x 3 SKIN: Warm and dry. prevena dressing to chest , jerald wrap left leg HEAD: Normocephalic. EYES: No scleral icterus. No injection or drainage. NECK: Supple, trachea midline. No JVD or lymphadenopathy. CARDIOVASCULAR: Regular rate and rhythm without murmurs, gallops, or rubs. RESPIRATORY: Breath sounds equal bilaterally. No accessory muscle use. few crackles in bases, chest tube to wall suction, drained 250cc/ 12 hrs GASTROINTESTINAL: Abdomen soft, non-tender, nondistended. MUSCULOSKELETAL: No cyanosis, or edema. BACK: Nontender without obvious deformity. No CVA tenderness. Labs: Laboratory Results - last 12 hr 06/15/18 06/15/18 06/16/18 21:20 23:29 01:35 WBC RBC Hgb Hct MCV MCH MCHC RDW Plt Count MPV Neut % (Auto) Lymph % (Auto) [place] % (Auto) Eos % (Auto) Baso % (Auto) Neut # (Auto) Lymph # (Auto) [place] # (Auto) Eos # (Auto) Baso # (Auto) WBC Differential Differential Comment Sodium Potassium Chloride Carbon Dioxide Anion Gap BUN Creatinine Estimated GFR POC Glucose 123 H 79 97 Random Glucose Calcium Magnesium Total Bilirubin AST ALT Alkaline Phosphatase Total Protein Albumin 06/16/18 06/16/18 06/16/18 04:18 05:25 05:25 WBC 14.2 H RBC 2.97 L Hgb 9.2 L D Hct 27.5 L MCV 92.8 MCH 31.1 MCHC 33.5 RDW 13.5 Plt Count 192 D MPV 8.1 Neut % (Auto) 84.9 H Lymph % (Auto) 8.8 L [place] % (Auto) 5.9 Eos % (Auto) 0.0 Baso % (Auto) 0.4 Neut # (Auto) 12.0 H Lymph # (Auto) 1.2 [place] # (Auto) 0.8 Eos # (Auto) 0.0 Baso # (Auto) 0.1 WBC Differential . Differential Comment Auto diff final Sodium 134 L Potassium 4.2 Chloride 101 Carbon Dioxide 25.9 Anion Gap 7 BUN 17 Creatinine 0.76 Estimated GFR 74 L POC Glucose 98 Random Glucose 97 Calcium 8.3 L Magnesium 2.4 Total Bilirubin 0.6 AST 27 ALT 30 Alkaline Phosphatase 30 L Total Protein 5.3 L D Albumin 2.9 L D 06/16/18 06/16/18 05:28 07:25 WBC RBC Hgb Hct MCV MCH MCHC RDW Plt Count MPV Neut % (Auto) Lymph % (Auto) [place] % (Auto) Eos % (Auto) Baso % (Auto) Neut # (Auto) Lymph # (Auto) [place] # (Auto) Eos # (Auto) Baso # (Auto) WBC Differential Differential Comment Sodium Potassium Chloride Carbon Dioxide Anion Gap BUN Creatinine Estimated GFR POC Glucose 109 91 Random Glucose Calcium Magnesium Total Bilirubin AST ALT Alkaline Phosphatase Total Protein Albumin Result Diagrams: 06/16/18 05:25 06/16/18 05:25 Telemetry: NSR - Plan (1) S/P CABG (coronary artery bypass graft) Plan: RESP: Recent bronchitis nebs , ezpap [place] pulm toileting CV: EF improved to 35% from 20% per postop FAVIO add BB , on amiodarone , ASA GI: prophy with protonix gi motility meds ENDO: off insulin gtt, non diabetic, insulin sliding scale CVC line Day 2 dc genesis PT/ OOB (3) Hyperlipidemia (4) Acute kidney injury Plan: reolved creatinine 1.03 (5) Ischemic cardiomyopathy Plan: EF 40% by Echo (6) Coronary artery disease Plan: ASA, statin , BB for surgery 06/15 (7) Acute respiratory failure Plan: resolved, continue pulm toileting (3) Hyperlipidemia Qualifiers: Hyperlipidemia type: unspecified Qualified Code(s): E78.5 - Hyperlipidemia, unspecified (6) Coronary artery disease Qualifiers: Coronary Disease-Associated Artery/Lesion type: [place] artery [place] vs. transplanted heart: [place] heart Associated angina: with unstable angina Qualified Code(s): I25.110 - Atherosclerotic heart disease of [place] coronary artery with unstable angina pectoris
--- NOTE | 2018-06-16 10:32 | P.DIET ---
Nutritional Evaluation Screening comments: MDC for diet education s/p CABG x 4 received 06/16. Patient Navigator to provide education. Consult RD if complexities with diet education arise.
[2018-06-16] MEDS: Metoprolol Tartrate 25 MG Tablet PO SCH ×2 (11:04→20:47)
[2018-06-16] MEDS: Insulin NovoLOG Aspart Correctional Sugar Inj SQ SCH ×4 (11:04→21:53)
--- NOTE | 2018-06-16 11:17 | P.PNIM ---
Subjective Interval history: Patient is uncomfortable today, postop. She is actually doing well postop with no acute concerns on blood work. Slight downward trend in hemoglobin but no need for transfusion. Pain is controlled. Physical Exam Vital signs: Last Vital Signs Temp 98.1 F 06/16/18 07:00 Pulse 79 06/16/18 09:06 Resp 14 06/16/18 09:56 BP 113/63 06/16/18 07:00 Pulse Ox 98 06/16/18 09:06 Intake & Output 06/14/18 06/15/18 06/16/18 06/17/18 06:59 06:59 06:59 06:59 Intake Total 1320 / 1320 1100 / 1100 3647 / 3647 100 / 100 Output Total 1650 / 1650 400 / 400 3405 / 3405 Balance -330 / -330 700 / 700 242 / 242 100 / 100 Weight 70.4 kg 71.5 kg 76.5 kg Narrative: GENERAL: NAD, A&Ox3 HEAD: Normocephalic. NECK: Supple, trachea midline. No lymphadenopathy. EYES: No scleral icterus. No injection or drainage. CARDIOVASCULAR: Regular rate and rhythm without murmurs, gallops, or rubs. RESPIRATORY: Breath sounds equal bilaterally. No accessory muscle use. Rhonchi bilaterally (improving) GASTROINTESTINAL: Abdomen soft, non-tender, nondistended. MUSCULOSKELETAL: No cyanosis, or edema. Anterior chest wound, bandaged. SKIN: Warm and dry. NEURO: No focal neurological deficits. Urinary Catheter Management Indwelling Temp Sensing Catheter: Cath placed during this visit: yes, but has since been removed by the nurse Urethral indwelling: No Insertion date: 06/15/18 Insertion time: 07:35 Removal date: 06/16/18 Removal time: 06:00 Results Labs CBC & Chem 7: 06/16/18 05:25 06/16/18 05:25 Imaging Imaging: Impressions Chest X-Ray 06/15/18 11:12 CONCLUSION: 1. Expected changes following recent median sternotomy with tubes and lines in appropriate position, as above. There is no pneumothorax. 2. Mild bibasilar opacity most likely representing atelectasis given the appearance and underinflation. Chest X-Ray 06/16/18 05:00 CONCLUSION: Interval extubation. No pneumothorax. Procedures Procedures: Cardiac catheterization 06/07/2018 1. Severe 3-vessel coronary artery disease. 2. Left dominant system. 3. Severely reduced left ventricular systolic function with ejection fraction estimated at 20%. Echo 05/07/2018 Normal left ventricular size. Wall thickness is normal. The left ventricular systolic function is mildly reduced with an estimated ejection fraction of 40- 45%. There is global hypokinesis with distinct regional wall motion abnormalities. There is akinesis of the apex, mid to apical lateral wall, apical posterolateral wall. and anteroapical wall. The left atrial size is upper limits of normal. Mild mitral valve regurgitation. Aortic valve sclerosis is present. The estimated pulmonary arterial pressure is 30mmHg Assessment and Plan (1) S/P CABG (coronary artery bypass graft): Code(s): Z95.1 - Presence of aortocoronary bypass graft Status: Acute (2) Essential hypertension: Code(s): I10 - Essential (primary) hypertension Status: Chronic (3) Hyperlipidemia: Code(s): E78.5 - Hyperlipidemia, unspecified Status: Chronic (4) Acute kidney injury: Code(s): N17.9 - Acute kidney failure, unspecified Status: Acute (5) Ischemic cardiomyopathy: Code(s): I25.5 - Ischemic cardiomyopathy Status: Chronic (6) Coronary artery disease: Code(s): I25.10 - Atherosclerotic heart disease of [place] coronary artery without angina pectoris Status: Chronic Plan 77-year-old female admitted secondary to shortness of breath, found to have multivessel cardiac disease, CABG performed on 06/15/2018. History of hypertension, hyperlipidemia. Status post CABG surgery 06/15/2018. No acute changes overnight. Doing well postop. Cardiothoracic surgeon following. Pain control. Status post CABG Postop care per cardiothoracic surgeon Follow in critical care Non-ST elevation myocardial infarction Flash pulmonary edema Multivessel coronary artery disease Stable on room air CABG performed on 06/15/2018 Continue aspirin Continue atorvastatin Continue carvedilol Continue losartan Continue furosemide Bronchitis -Possible pneumonia Laryngitis - voice better some atelectasis on XR Continue Rocephin Continue azithromycin Antibiotic treatments will be finished 06/15/2018 Clinically improving Medically stable for surgery Lower leg pain Possibly from prior hardware follow clinically Seasonal allergy sinus congestion fluticasone PRN DVT Prophylaxis Heparin SQ Progress Note: Quality VTE Deep Vein Thrombosis/Pulmonary Embolism Present on Admission: No _ (1) Hyperlipidemia Qualifiers: Hyperlipidemia type: unspecified Qualified Code(s): E78.5 - Hyperlipidemia, unspecified (2) Coronary artery disease Qualifiers: Coronary Disease-Associated Artery/Lesion type: [place] artery [place] vs. transplanted heart: [place] heart Associated angina: with unstable angina Qualified Code(s): I25.110 - Atherosclerotic heart disease of [place] coronary artery with unstable angina pectoris
[2018-06-16] MEDS: Sod Chloride 0.9% Inj 1,000 ML IV.CONT SCH (17:05)
[2018-06-16] MEDS: Docusate Sodium 100 MG Capsule PO SCH (20:45)
[2018-06-16] MEDS: Famotidine 20 MG Tablet PO SCH (20:48)
[2018-06-17] MEDS: ceFAZolin 1 GM Premix Inj 1 GM/50 ML IV.SIG SCH (03:54)
[2018-06-17] MEDS: Insulin NovoLOG Aspart Correctional Sugar Inj SQ SCH ×5 (04:01→20:15)
[2018-06-17 05:10] LABS: Baso % (Auto) 0.4 % (0.0-2.0); Eos # (Auto) 0.1 th/mm3 (0.0-0.4); Eos % (Auto) 0.7 % (0.0-4.0); Hematocrit 26.6 % (35.0-46.0); Hemoglobin 9.3 gm/dL (11.6-15.3); Lymph # (Auto) 1.5 th/mm3 (1.0-4.8); Lymph % (Auto) 13.1 % (9.0-44.0); Mean Corpuscular HGB Conc 34.8 % (32.0-36.0); Mean Corpuscular Hemoglobin 31.6 pg (27.0-34.0); Mean Platelet Volume 7.9 fL (7.0-11.0); Mono # (Auto) 0.7 th/mm3 (0.0-0.9); Mono % (Auto) 6.1 % (0.0-8.0); Neut # (Auto) 9.5 th/mm3 (1.8-7.7); Neut % (Auto) 79.7 % (16.0-70.0); Platelet Count 210 th/mm3 (150-450); Red Blood Count 2.93 mil/mm3 (4.00-5.30); Red Cell Distribution Width 13.5 % (11.6-17.2); White Blood Count 11.9 th/mm3 (4.0-11.0)
[2018-06-17 05:18] LABS: Albumin 3.2 g/dL (3.4-5.0); Anion Gap 6 meq/L (5-15); Aspartate Aminotransferase 21 U/L (15-37); Blood Urea Nitrogen 19 mg/dL (7-18); Calcium 8.3 mg/dL (8.5-10.1); Carbon Dioxide 29.9 meq/L (21.0-32.0); Chloride 94 meq/L (98-107); Glomerular Filtration Rate 54 mL/min (>89); Glucose,Random 105 mg/dL (74-106); Potassium 3.7 meq/L (3.5-5.1); Sodium 130 meq/L (136-145)
[2018-06-17 05:22] LABS: Alanine Aminotransferase 26 U/L (10-53); Alkaline Phosphatase 33 U/L (45-117); Phosphorus 3.1 mg/dL (2.5-4.9); Total Protein 6.1 g/dL (6.4-8.2)
[2018-06-17] MEDS: Amiodarone 200 MG Tablet PO SCH ×2 (05:39→20:20)
[2018-06-17] MEDS: Multivitamin/Minerals Therapeutic Tablet PO SCH (10:10)
[2018-06-17] MEDS: Docusate Sodium 100 MG Capsule PO SCH ×2 (10:10→20:20)
[2018-06-17] MEDS: Polyethylene Glycol 3350 17 GM Packet PO SCH (10:10)
[2018-06-17] MEDS: Metoprolol Tartrate 25 MG Tablet PO SCH ×2 (10:12→20:21)
[2018-06-17] MEDS: Senna/Docusate Sodium 8.6/50 MG Tablet PO SCH ×2 (10:12→20:18)
[2018-06-17] MEDS: Furosemide 40 MG Tablet PO SCH (10:14)
--- NOTE | 2018-06-17 11:38 | P.PNIM ---
Subjective Interval history: Decreased pain today compared to yesterday. No new complaints. Patient ambulating with PT. Physical Exam Vital signs: Last Vital Signs Temp 97.7 F 06/17/18 07:00 Pulse 78 06/17/18 07:52 Resp 18 06/17/18 07:52 BP 119/58 L 06/17/18 07:00 Pulse Ox 99 06/17/18 07:53 Intake & Output 06/15/18 06/16/18 06/17/18 06/18/18 06:59 06:59 06:59 06:59 Intake Total 1100 / 1100 3647 / 3647 870 / 870 Output Total 400 / 400 3405 / 3405 1570 / 1570 Balance 700 / 700 242 / 242 -700 / -700 Weight 71.5 kg 76.5 kg 74 kg Narrative: GENERAL: NAD, A&Ox3 HEAD: Normocephalic. NECK: Supple, trachea midline. No lymphadenopathy. EYES: No scleral icterus. No injection or drainage. CARDIOVASCULAR: Regular rate and rhythm without murmurs, gallops, or rubs. RESPIRATORY: Breath sounds equal bilaterally. No accessory muscle use. Rhonchi bilaterally (improving) GASTROINTESTINAL: Abdomen soft, non-tender, nondistended. MUSCULOSKELETAL: No cyanosis, or edema. Anterior chest wound, bandaged. SKIN: Warm and dry. NEURO: No focal neurological deficits. Urinary Catheter Management Indwelling Temp Sensing Catheter: Cath placed during this visit: yes, but has since been removed by the nurse Urethral indwelling: No Insertion date: 06/15/18 Insertion time: 07:35 Removal date: 06/16/18 Removal time: 06:00 Results Labs CBC & Chem 7: 06/17/18 04:35 06/17/18 04:35 Procedures Procedures: Cardiac catheterization 06/07/2018 1. Severe 3-vessel coronary artery disease. 2. Left dominant system. 3. Severely reduced left ventricular systolic function with ejection fraction estimated at 20%. Echo 05/07/2018 Normal left ventricular size. Wall thickness is normal. The left ventricular systolic function is mildly reduced with an estimated ejection fraction of 40- 45%. There is global hypokinesis with distinct regional wall motion abnormalities. There is akinesis of the apex, mid to apical lateral wall, apical posterolateral wall. and anteroapical wall. The left atrial size is upper limits of normal. Mild mitral valve regurgitation. Aortic valve sclerosis is present. The estimated pulmonary arterial pressure is 30mmHg Assessment and Plan (1) S/P CABG (coronary artery bypass graft): Code(s): Z95.1 - Presence of aortocoronary bypass graft Status: Acute (2) Essential hypertension: Code(s): I10 - Essential (primary) hypertension Status: Chronic (3) Hyperlipidemia: Code(s): E78.5 - Hyperlipidemia, unspecified Status: Chronic (4) Acute kidney injury: Code(s): N17.9 - Acute kidney failure, unspecified Status: Acute (5) Ischemic cardiomyopathy: Code(s): I25.5 - Ischemic cardiomyopathy Status: Chronic (6) Coronary artery disease: Code(s): I25.10 - Atherosclerotic heart disease of [place] coronary artery without angina pectoris Status: Chronic Plan 77-year-old female admitted secondary to shortness of breath, found to have multivessel cardiac disease, CABG performed on 06/15/2018. History of hypertension, hyperlipidemia. Status post CABG surgery 06/15/2018. She continues to recover well. No acute changes overnight. Doing well postop. Cardiothoracic surgeon following. Pain control working well. Status post CABG Postop care per cardiothoracic surgeon Follow in critical care Non-ST elevation myocardial infarction Flash pulmonary edema Multivessel coronary artery disease Stable on room air CABG performed on 06/15/2018 Continue aspirin Continue atorvastatin Continue carvedilol Continue losartan Continue furosemide Bronchitis -Possible pneumonia Laryngitis - voice better some atelectasis on XR Continue Rocephin Continue azithromycin Antibiotic treatments will be finished 06/15/2018 Clinically improving Medically stable for surgery Lower leg pain Possibly from prior hardware follow clinically Seasonal allergy sinus congestion fluticasone PRN DVT Prophylaxis Heparin SQ Progress Note: Quality VTE Deep Vein Thrombosis/Pulmonary Embolism Present on Admission: No _ (1) Hyperlipidemia Qualifiers: Hyperlipidemia type: unspecified Qualified Code(s): E78.5 - Hyperlipidemia, unspecified (2) Coronary artery disease Qualifiers: Coronary Disease-Associated Artery/Lesion type: [place] artery [place] vs. transplanted heart: [place] heart Associated angina: with unstable angina Qualified Code(s): I25.110 - Atherosclerotic heart disease of [place] coronary artery with unstable angina pectoris
--- NOTE | 2018-06-17 13:25 | P.PNCV ---
- Note Subjective/Hospital Course: 77-year-old female visiting from [place], [place], here on vacation visiting her [id number]-bmd. Apparently presented to the emergency department with severe shortness of breath, acute tachypnea. O2 saturations were in the 70s. She was recently treated for an upper respiratory infection with amoxicillin. She required BiPAP therapy. Her influenza A and B were negative. She has also had negative blood cultures. Her chest x-ray showed flash pulmonary edema. She was given IV Lasix and transferred from [place] to [facility] and placed on BiPAP therapy as above. She was found to have acute kidney injury, hyponatremia. She also had some mildly elevated troponins and was ruled in for a non-STEMI, underwent heart catheterization by Dr. Henry Ashley which showed ejection fraction of 20%, severely reduced LV systolic function, severe 3-vessel disease. She had the LAD proximally 90% stenosed, proximal portion of the obtuse marginal was 80%. The left circumflex was 50%, the RCA 80%. We were consulted to evaluate for coronary artery bypass grafting. PAST MEDICAL HISTORY: Includes chronic lymphocytic leukemia, diagnosed in 2005. She never required any chemo or treatment. They just monitored her blood counts. Other history includes essential hypertension, hyperlipidemia. 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 (2) Acute respiratory failure (3) Ischemic cardiomyopathy (4) Coronary artery disease Postoperative Diagnosis: same Date of procedure: 06/15/18 Procedure: CABG x 4 MCCARTHY to LAD - good SVG to RI - fair SVG to OM - good SVG to L PDA - good EVH extubated after surgery 2700cc crystalloid , 400cc cell saver, EBL 200cc 12/ c/o of post op pain VSS, start BB , add diuresis pulm toileting OOB ambulate transfer to stepdown 06/17 remains in NSR, will decrease dose of amiodarone chest tubes dc without difficulty continue gentle diuresis, pulm toileting f/u CXR in am Objective: Vital Signs - 24 hr 06/16/18 13:57 06/16/18 14:12 06/16/18 14:14 Temperature 98.5 F Pulse Rate 73 80 80 Respiratory Rate 18 16 Blood Pressure 104/51 L Pulse Oximetry 97 06/16/18 15:00 06/16/18 16:00 06/16/18 16:17 Temperature Pulse Rate 77 72 Respiratory Rate Blood Pressure Pulse Oximetry 97 06/16/18 17:00 06/16/18 17:17 06/16/18 18:23 Temperature 97.9 F Pulse Rate 86 78 Respiratory Rate 17 Blood Pressure 116/68 Pulse Oximetry 96 97 06/16/18 19:00 06/16/18 20:00 06/16/18 20:16 Temperature 97.6 F Pulse Rate 76 64 74 Respiratory Rate 18 18 Blood Pressure 95/56 L Pulse Oximetry 97 97 06/16/18 21:00 06/16/18 22:00 06/16/18 23:00 Temperature 97.7 F Pulse Rate 70 70 60 Respiratory Rate 16 Blood Pressure 116/68 Pulse Oximetry 100 06/17/18 03:00 06/17/18 04:00 06/17/18 05:00 Temperature 98 F Pulse Rate 60 72 72 Respiratory Rate 18 Blood Pressure 127/61 Pulse Oximetry 100 06/17/18 06:00 06/17/18 07:00 06/17/18 07:52 Temperature 97.7 F Pulse Rate 74 83 78 Respiratory Rate 16 18 Blood Pressure 119/58 L Pulse Oximetry 97 06/17/18 07:53 06/17/18 08:00 06/17/18 09:00 Temperature Pulse Rate 83 90 Respiratory Rate Blood Pressure Pulse Oximetry 99 06/17/18 10:00 06/17/18 11:00 06/17/18 12:00 Temperature 97.7 F Pulse Rate 81 83 82 Respiratory Rate 16 Blood Pressure 119/58 L Pulse Oximetry 97 Labs: Laboratory Results - last 12 hr 06/14/18 06/17/18 06/17/18 04:28 04:01 04:35 WBC 11.9 H RBC 2.93 L Hgb 9.3 L Hct 26.6 L MCV 91.0 MCH 31.6 MCHC 34.8 RDW 13.5 Plt Count 210 MPV 7.9 Neut % (Auto) 79.7 H Lymph % (Auto) 13.1 [place] % (Auto) 6.1 Eos % (Auto) 0.7 Baso % (Auto) 0.4 Neut # (Auto) 9.5 H Lymph # (Auto) 1.5 [place] # (Auto) 0.7 Eos # (Auto) 0.1 Baso # (Auto) 0.0 WBC Differential . Differential Comment Auto diff final Sodium Potassium Chloride Carbon Dioxide Anion Gap BUN Creatinine Estimated GFR POC Glucose 113 H Random Glucose Calcium Phosphorus Magnesium Total Bilirubin AST ALT Alkaline Phosphatase Total Protein Albumin MTS Gel Crossmatch See Detail 06/17/18 06/17/18 04:35 11:54 WBC RBC Hgb Hct MCV MCH MCHC RDW Plt Count MPV Neut % (Auto) Lymph % (Auto) [place] % (Auto) Eos % (Auto) Baso % (Auto) Neut # (Auto) Lymph # (Auto) [place] # (Auto) Eos # (Auto) Baso # (Auto) WBC Differential Differential Comment Sodium 130 L Potassium 3.7 Chloride 94 L Carbon Dioxide 29.9 Anion Gap 6 BUN 19 H Creatinine 1.00 Estimated GFR 54 L POC Glucose 140 H Random Glucose 105 Calcium 8.3 L Phosphorus 3.1 Magnesium 2.0 Total Bilirubin 0.8 AST 21 ALT 26 Alkaline Phosphatase 33 L Total Protein 6.1 L D Albumin 3.2 L MTS Gel Crossmatch Result Diagrams: 06/17/18 04:35 06/17/18 04:35 - Plan (1) S/P CABG (coronary artery bypass graft) Plan: RESP: Recent bronchitis nebs , ezpap ac[place] pulm toileting CV: EF improved to 35% from 20% per postop FAVIO add BB , on amiodarone , ASA, start low dose SANA GI: prophy with protonix gi motility meds ENDO: non diabetic, insulin sliding scale CVC line Day 2 PT/ OOB (3) Hyperlipidemia (4) Acute kidney injury Plan: reolved creatinine 1.03 (5) Ischemic cardiomyopathy Plan: EF 40% by Echo (6) Coronary artery disease Plan: ASA, statin , BB for surgery 06/15 (7) Acute respiratory failure Plan: resolved, continue pulm toileting (3) Hyperlipidemia Qualifiers: Hyperlipidemia type: unspecified Qualified Code(s): E78.5 - Hyperlipidemia, unspecified (6) Coronary artery disease Qualifiers: Coronary Disease-Associated Artery/Lesion type: [place] artery [place] vs. transplanted heart: [place] heart Associated angina: with unstable angina Qualified Code(s): I25.110 - Atherosclerotic heart disease of [place] coronary artery with unstable angina pectoris
[2018-06-17] MEDS: Sod Chloride 0.9% Inj 1,000 ML IV.CONT SCH (20:16)
[2018-06-17] MEDS: Famotidine 20 MG Tablet PO SCH (20:22)
[2018-06-18 05:15] LABS: Baso % (Auto) 0.4 % (0.0-2.0); Eos # (Auto) 0.1 th/mm3 (0.0-0.4); Eos % (Auto) 0.7 % (0.0-4.0); Hematocrit 24.8 % (35.0-46.0); Hemoglobin 8.9 gm/dL (11.6-15.3); Lymph # (Auto) 1.4 th/mm3 (1.0-4.8); Lymph % (Auto) 13.7 % (9.0-44.0); Mean Corpuscular HGB Conc 35.9 % (32.0-36.0); Mean Corpuscular Hemoglobin 32.7 pg (27.0-34.0); Mean Platelet Volume 8.1 fL (7.0-11.0); Mono # (Auto) 0.7 th/mm3 (0.0-0.9); Mono % (Auto) 7.5 % (0.0-8.0); Neut # (Auto) 7.7 th/mm3 (1.8-7.7); Neut % (Auto) 77.7 % (16.0-70.0); Platelet Count 192 th/mm3 (150-450); Red Blood Count 2.72 mil/mm3 (4.00-5.30); Red Cell Distribution Width 13.8 % (11.6-17.2)
[2018-06-18 05:20] LABS: Alanine Aminotransferase 19 U/L (10-53); Albumin 3.1 g/dL (3.4-5.0); Anion Gap 7 meq/L (5-15); Aspartate Aminotransferase 19 U/L (15-37); Blood Urea Nitrogen 15 mg/dL (7-18); Calcium 8.3 mg/dL (8.5-10.1); Carbon Dioxide 31.4 meq/L (21.0-32.0); Chloride 92 meq/L (98-107); Glomerular Filtration Rate 70 mL/min (>89); Glucose,Random 111 mg/dL (74-106); Magnesium 2.3 mg/dL (1.5-2.5); Sodium 130 meq/L (136-145)
[2018-06-18 05:22] LABS: Alkaline Phosphatase 32 U/L (45-117); Total Protein 6.3 g/dL (6.4-8.2)
--- NOTE | 2018-06-18 05:27 | XR ---
EXAM DATE: 06/18/2018 4:53 AM EST AGE/SEX: 77 years / Female INDICATIONS: shortness of breath, possible pneumothorax. CLINICAL DATA: This is the patient's subsequent encounter. Patient reports that signs and symptoms h ave been present for 1 week and indicates a pain score of 4/10. MEDICAL/SURGICAL HISTORY: . Hypertension. Chronic lymphocytic leukemia. Hyperlipidemia. . CAB G. Lymph node biopsy. COMPARISON: [facility] [place], CHEST 1V SINGLE AP, 06/16/2018. . FINDINGS: Left subclavian central venous catheter tip overlies the SVC. Sternotomy wires and cardiomegaly again noted. There is atelectasis at the left base with interval chest tube removal. I do not see a pneumo thorax. CONCLUSION: No obvious pneumothorax status post chest tube removal. Electronically signed by: Ashwin Baldwin MD 06/18/2018 5:26 AM EST
[2018-06-18] MEDS ORDERED: Lisinopril 5 MG Tablet PO SCH (09:00)
[2018-06-18 09:28] VITALS: RESP 17
[2018-06-18] MEDS: Insulin NovoLOG Aspart Correctional Sugar Inj SQ SCH ×2 (09:34→12:16)
[2018-06-18] MEDS: Multivitamin/Minerals Therapeutic Tablet PO SCH (09:35)
[2018-06-18] MEDS: Amiodarone 200 MG Tablet PO SCH (09:36)
[2018-06-18] MEDS: Senna/Docusate Sodium 8.6/50 MG Tablet PO SCH (09:36)
[2018-06-18] MEDS: Docusate Sodium 100 MG Capsule PO SCH (09:36)
[2018-06-18] MEDS: Metoprolol Tartrate 25 MG Tablet PO SCH (09:37)
[2018-06-18] MEDS: Polyethylene Glycol 3350 17 GM Packet PO SCH (09:40)
--- NOTE | 2018-06-18 10:14 | P.DCO ---
Diagnosis (1) S/P CABG (coronary artery bypass graft): Status: Acute (2) Ischemic cardiomyopathy: Status: Chronic (3) Coronary artery disease: Status: Chronic Physical Therapy Order: Evaluate and treat, Improve ambulation and Strength and gait training Home Health Nursing Order: Medical education, Signs/symptoms of disease process, CHF education, Wound care and dressing changes and Nursing assessment with vital signs Case Management Consult Case Management Consult-Home Health: Yes I have seen patient Lisa Perez on 06/18/18. My clinical findings support the need for the requested home health care services because: Limited mobility due to disease progression, Patient has SOB, Deconditioned with increased weakness and Limited ability to care for self I certify that my clinical findings support that this patient is homebound because: Post-op weakness, Unsafe to leave home unassisted, Unable to use public transportation and Poor cardiac reserve _ (1) Coronary artery disease Qualifiers: Coronary Disease-Associated Artery/Lesion type: [place] artery [place] vs. transplanted heart: [place] heart Associated angina: with unstable angina Qualified Code(s): I25.110 - Atherosclerotic heart disease of [place] coronary artery with unstable angina pectoris
[2018-06-18 11:15] VITALS: BP 130/69; TEMP 98.6; O2SAT 95
--- NOTE | 2018-06-18 12:03 | P.DS ---
DS: Providers Date of admission: 06/07/18 03:45 Primary care physician: No Primary Care Physician Consults: 06/07/18 03:53 Consult to Cardiology Routine Consulting Provider: Michael Buckley Does the patient have a Battery Vent Plug Inserter who follows them?: No Preferred Water Treatment Specialist:: Recreation Leader Physician Reason for Consultation: NSTEMI, CHF Notified:: Service Spoke with:: maureen Date Notified:: 06/07/18 Time Notified:: 05:00 Ordering Provider: BEHZAD 06/07/18 16:06 Consult to Cardiothoracic Surgery Routine Consulting Provider: Constance Salamanca Reason for Consultation: POSSIBLE HIGH RISK CABG Notified:: Physician Spoke with:: DR. MALHOTRA Date Notified:: 06/07/18 Time Notified:: 16:13 Comments:: [phone] Ordering Provider: WHITLEY 06/09/18 10:24 Consult to Hospitalist Routine Consulting Provider: Mohinder Burt Reason for Consultation: Rice of care in a.m. 06/10. Admission with CHF exacerbation. Three-vessel coronary artery disease. Awaiting CABG. Notified:: Service Spoke with:: APARNA Date Notified:: 06/09/18 Time Notified:: 10:28 Comments:: Ordering Provider: ANDREW Brief History from admission: This is a 77-year-old female. Date of admission 06/07/2018. Past medical history includes hypertension, hyperlipidemia and CLL diagnosed in 2005. Patient presents to [facility] originally from [place] with a one-week history of progressive shortness of breath. Recently, patient was started on amoxicillin for suspected upper year respiratory tract infection. This morning approximately 2 AM, EMS was called due to acute tachypnea. When EMS arrived saturations were in the 70s. She was unable to speak complete status post able to nod her head to questions per report. Denies chest pain. Denies abdominal pain Of note patient recently traveled from [place] via car approximately week ago. In the ED, patient was noted to have a chest x-ray revealing likely flash pulmonary edema. Patient received 40 mg IV furosemide. EKG revealed Q waves in inferior leads. BNP was elevated. Creatinine was slightly elevated 1.[address] Zuleta was called and will be consulted. Patient was placed on BiPAP and was transferred to the main campus for further evaluation treatment. At the present time, patient is currently less tachypneic. Requesting for BiPAP removed. Again denies chest pain, abdominal pain, edema in the lower extremities. Hemodynamically stable. DS: Diagnosis Discharge Diagnosis (1) S/P CABG (coronary artery bypass graft): Status: Acute (2) Ischemic cardiomyopathy: Status: Chronic (3) Coronary artery disease: Status: Chronic DS: Summary Mrs. Perez is a 77-year-old female. She came in secondary to NSTEMI with pulmonary edema and CHF exacerbation. Cardiac cath was performed and found no sensible lesions, patient needed a four-vessel bypass. The surgery was performed during this hospital stay and patient has recovered well since the surgery. At this point she is ambulatory and medically stable and cleared for discharge to home. Medications were adjusted as listed below. Discharge home today. Time Spent with Patient Total time spent providing and/or coordinating discharge services: Quality: VTE Deep Vein Thrombosis/Pulmonary Embolism Present on Admission: No Results Procedures completed during hospitalization: Cardiac catheterization 06/07/2018 1. Severe 3-vessel coronary artery disease. 2. Left dominant system. 3. Severely reduced left ventricular systolic function with ejection fraction estimated at 20%. Echo 05/07/2018 Normal left ventricular size. Wall thickness is normal. The left ventricular systolic function is mildly reduced with an estimated ejection fraction of 40- 45%. There is global hypokinesis with distinct regional wall motion abnormalities. There is akinesis of the apex, mid to apical lateral wall, apical posterolateral wall. and anteroapical wall. The left atrial size is upper limits of normal. Mild mitral valve regurgitation. Aortic valve sclerosis is present. The estimated pulmonary arterial pressure is 30mmHg Labs on day of discharge: Labs from last 24 hours 06/18/18 06/18/18 06/18/18 07:56 04:40 04:40 WBC 10.0 RBC 2.72 L Hgb 8.9 L Hct 24.8 L MCV 91.0 MCH 32.7 MCHC 35.9 RDW 13.8 Plt Count 192 MPV 8.1 Neut % (Auto) 77.7 H Lymph % (Auto) 13.7 [place] % (Auto) 7.5 Eos % (Auto) 0.7 Baso % (Auto) 0.4 Neut # (Auto) 7.7 Lymph # (Auto) 1.4 [place] # (Auto) 0.7 Eos # (Auto) 0.1 Baso # (Auto) 0.0 WBC Differential . Differential Comment Auto diff final Sodium 130 L Potassium 4.0 Chloride 92 L Carbon Dioxide 31.4 Anion Gap 7 BUN 15 Creatinine 0.80 Estimated GFR 70 L POC Glucose 121 H Random Glucose 111 H Calcium 8.3 L Magnesium 2.3 Total Bilirubin 1.0 AST 19 ALT 19 Alkaline Phosphatase 32 L Total Protein 6.3 L Albumin 3.1 L 06/17/18 16:54 WBC RBC Hgb Hct MCV MCH MCHC RDW Plt Count MPV Neut % (Auto) Lymph % (Auto) [place] % (Auto) Eos % (Auto) Baso % (Auto) Neut # (Auto) Lymph # (Auto) [place] # (Auto) Eos # (Auto) Baso # (Auto) WBC Differential Differential Comment Sodium Potassium Chloride Carbon Dioxide Anion Gap BUN Creatinine Estimated GFR POC Glucose 121 H Random Glucose Calcium Magnesium Total Bilirubin AST ALT Alkaline Phosphatase Total Protein Albumin Impressions ITS Impressions Venous Doppler Study 06/07/18 00:00 CONCLUSION: The study is negative for bilateral lower extremity deep venous thrombosis. Carotid Doppler Study 06/09/18 18:12 CONCLUSION: 1. Right Internal Carotid Artery: Minimal plaque without stenosis. 2. Left Internal Carotid Artery: Minimal plaque without stenosis. Lower Extremity Ultrasound 06/09/18 18:12 CONCLUSION: 1. Venous mapping study as described. Tibia/Fibula X-Ray 06/13/18 00:00 CONCLUSION: 1. Status post internal fixation of the proximal tibia. 2. Otherwise, unremarkable plain films of the lower leg. Chest X-Ray 06/18/18 06:00 CONCLUSION: No obvious pneumothorax status post chest tube removal. Discharge Plan Discharge Disposition Patient Disposition: W/Home Health Service Discharge Condition Condition: Stable Discharge Order Discharge Orders: Discharge Order (Routine); Ordered 06/18/18 Ordered By: Freddy Crain Discharge Details Anticipated Discharge Date: 06/18/18 Physicians Team Primary Care Provider: Primary Care Suzette,Renetta Attending Provider: Freddy Crain Other Providers: Michael Buckley ; Constance Salamanca Rxs /Orders / Referrals /Forms Prescriptions: New furosemide 40 mg Tablet 40 mg PO DAILY Qty: 30 RF: 0 hydrocodone-acetaminophen 5-325 mg Tablet 1 tab PO Q4H PRN (Reason: Pain 3 to 10) Qty: 20 RF: 0 potassium chloride [Klor-Con 10] 10 mEq Tablet Extended Release 20 meq PO DAILY Qty: 30 RF: 0 docusate sodium [DOK] 100 mg Capsule 100 mg PO BID PRN (Reason: Constipation) Qty: 30 RF: 0 aspirin 81 mg Tablet,Chewable 81 mg PO DAILY Qty: 30 RF: 0 lisinopril 5 mg Tablet 2.5 mg PO DAILY Qty: 30 RF: 0 metoprolol tartrate 25 mg Tablet 12.5 mg PO BID Qty: 30 RF: 0 amiodarone 200 mg Tablet 400 mg PO Q12HR Qty: 60 RF: 0 Continue atorvastatin 20 mg Tablet 20 mg PO DAILY RF: 0 Discontinued carvedilol 25 mg Tablet 25 mg PO BID RF: 0 amoxicillin 875 mg Tablet 875 mg PO BID RF: 0 hydrochlorothiazide 25 mg Tablet 25 mg PO DAILY RF: 0 losartan 100 mg Tablet 100 mg PO DAILY RF: 0 Ambulatory Orders / Order Sets / DME: Basic Metabolic Panel (Routine) Timeframe: 2 Weeks Location: Determined by Patient Ordered By: Rowena Perez Complete Blood Count NO Diff (Routine) Timeframe: 2 Weeks Location: Determined by Patient Ordered By: Rowena Perez XR chest 2V PA&LAT (Routine) Timeframe: 2 Weeks Location: Determined by Patient Ordered By: Rowena Perez Walker With Front Wheels (1 each) (Routine) Location: Determined by Patient Ordered By: Freddy Crain Referrals: Henry Ashley MD [Physician] - See Instructions ( Your appointment has been scheduled for [06/27/18] at [12:45 PM] If you cannot make this appointment, please call the office to reschedule ) Rowena Perez [ADVANCE RN PRACTITIONER] - See Instructions ( Your appointment has been scheduled for [06/30/18] at [12:00 PM] If you cannot make this appointment, please call the office to reschedule ) Primary Care Brittaniei,No [Primary Care Provider] - See Instructions Discharge Instructions Additional Instructions: PREVENA Single Use Negative Wound Therapy System Caregiver Instruction Sheet 1. A Prevena dressing system was applied to the chest incision during surgery , to promote wound healing. It works via a suction device (negative pressure wound therapy) to remove low to moderate levels of exudate (drainage) and infectious materials. We recommend that the device stay in place for up to seven days, from day of surgery. 2. Day of Surgery__06/15/18 Day of Removal ____06/22/18 3. The dressing should only be removed by a health home health care physician. Please arrange removal of device to coincide with Home Health visit and or with Nursing staff at Rehab 4. If skin reddening or irritation of skin occurs, or excessive drainage, please notify the Cardiovascular Surgeons office at [phone]. 5. Light showering is permissible; however the pump should be disconnected and placed in safe location, where it will not get wet. The dressing should not be exposed to direct spray or submerged in water. No bath tub / shower only. Ensure the end of the tubing attached to the dressing is facing down so that water does not enter the top of the tube. 6. To remove Prevena dressing: press purple button to turn off device / remove the suction. Then disconnect the tubing from the pump. The fixation strips should be stretched away from the skin and the dressing lifted at one corner and peeled back until it has been fully removed. 7. After removal, it is ok to shower daily using liquid dial soap and clean wash cloth, rinse and pat dry, and leave incision open to air dry. For any concerns regarding Prevena dressing, and or wounds, please contact Francy Mix, patient navigator at [phone] or notify the Cardiovascular Surgeons office at [phone]. Incentive spirometry Q1 hr x 10, while awake, also use acapella device hourly whole awake Sternal Breast Bone Precautions: NO pushing or pulling, ( pt must use sternal pillow to support chest with all activities and with coughing ( takes up to 3 months breast bone to heal ) All females to wear sternal bra , launder as needed Daily incision care: ok to shower daily, no tub bath. Wash all incisions with liquid dial soap, clean wash cloth to each site, rinse and pat dry. Observe for any signs of infection, such as drainage which is dark yellow, doran, green or foul smelling. Immediately report to the surgeon any drainage from the chest incision, or legs, and for any abnormal drainage from the chest tube sites. Notify surgeon if any temp >101.5 degrees F. When specialty dressing removed/ or if you do not have one, continue to shower daily as above, then rinse and pat incision dry and paint with betadine daily x 5 days. Allow steri strips to fall off if you have any. Avoid lotions, creams, salves, oils, etc. for the first month Please see attached forms for additional instructions regarding post Open Heart specialty wound vacuum dressings. NANY or Prevena , Dressing to be removed by Nursing staff on __06/22/[address] Salamanca patients , please obtain CBC, BMP, PA & Lat CXR in 2 weeks, results to Dr. Salamanca ( prescription will be given) ( ) (Tele: [phone]) , F/U appointment: as per DC instructions: PCP in 2 weeks, CV surgeon 2 weeks, Battery Vent Plug Inserter 3-4 weeks For any questions regarding incisions/ dressing / meds / post op care or above Symptoms, Wednesday 8am-5pm Heart & Vascular Surgery Office ( Dr. Fong & Dr. Salamanca), After Hours / Nights (5pm -8am) Weekends and Holidays Please call [facility] Cardiac Inter[facility] Care Unit ([facility]) Charge Nurse Status ED Status: Left Department
[2018-06-18 12:39] VITALS: PULSE 60
--- NOTE | 2018-06-18 17:48 | ECG ---
Date Performed: 06/16/2018 Time Performed: 18:38:46 PTAGE: 77 years EKG: Sinus rhythm . Leftward axis Inferior infarct - age undetermined Possible LVH with secondary repolarization abnorm ality Ant/septal and lateral ST-T changes are probably due to ventricular hypertrophy Abnormal ECG PREVIOUS TRACING : 06/07/2018 16.44 DOCTOR: Carl Preston Interpretating Date/Time 06/18/2018 17:32:21
== END 2018-06-18 14:34 | disposition home health service (06) ==
LOC: PHED 02:48 → PHEDA 03:45 → HIMC 05:45 → HCIS 06-10 12:10 → HCVI 06-14 18:00 → HCPC 06-16 14:48
PROVIDERS: ADMIT Hospitalist; ATTEND Hospitalist
DX: J96.01 Acute respiratory failure with hypoxia; N17.9 Acute kidney failure, unspecified; I25.5 Ischemic cardiomyopathy; I21.4 Non-ST elevation (NSTEMI) myocardial infarction; I11.0 Hypertensive heart disease with heart failure; Z79.899 Other long term (current) drug therapy; Z85.6 Personal history of leukemia; J04.0 Acute laryngitis; R94.6 Abnormal results of thyroid function studies; E87.1 Hypo-osmolality and hyponatremia; J30.2 Other seasonal allergic rhinitis; D64.9 Anemia, unspecified; I08.0 Rheumatic disorders of both mitral and aortic valves; E78.5 Hyperlipidemia, unspecified; J98.11 Atelectasis; I25.110 Atherosclerotic heart disease of native coronary artery with unstable angina pectoris; J40 Bronchitis, not specified as acute or chronic; Z82.49 Family history of ischemic heart disease and other diseases of the circulatory system; J18.9 Pneumonia, unspecified organism; I50.41 Acute combined systolic (congestive) and diastolic (congestive) heart failure; R73.9 Hyperglycemia, unspecified